=== PATIENT | female | born 2000 | race Caucasian/White ===

== ENCOUNTER 2022-11-12 13:06 | Outpatient (OUT) | payer OTHER, MEDICAID, SELFPAY ==
[2022-11-12 13:40] LABS: Basophils Percent Auto 0.5 % (0.2-2.0); Eosinophils Absolute Auto 0.1 10^3/uL (0.0-0.7); Hematocrit 36.7 % (36.0-48.0); Immature Granulocytes Abs Auto 0.04 10^3/uL (0.00-0.03); Immature Granulocytes Pct Auto 0.5 % (0.0-0.5); Lymphocytes Absolute Auto 2.4 10^3/uL (1.2-3.8); Lymphocytes Percent Auto 29.1 % (20.5-60.0); Mean Corpuscular HGB Conc 32.7 g/dL (29.9-35.2); Mean Corpuscular Hemoglobin 25.6 pg (26.7-34.0); Mean Corpuscular Volume 78.4 fL (81.0-99.0); Mean Platelet Volume 9.7 fL (9.5-13.5); Monocytes Absolute Auto 0.7 10^3/uL (0.3-0.8); Monocytes Percent Auto 8.1 % (1.7-12.0); Neutrophils Percent Auto 60.8 % (43.0-75.0); Platelet Count 305 10^3/uL (150-450); Red Blood Count 4.68 10^6/uL (4.20-5.40); Red Cell Distribution Width 14.2 % (11.0-15.0); White Blood Count 8.2 10^3/uL (4.0-11.0)
[2022-11-12 14:06] LABS: Estimated Average Glucose 94 mg/dL; Glycohemoglobin A1C 4.9 % (4.5-6.2)
[2022-11-12 14:16] LABS: Thyroid Stimulating Hormone 2.963 uIU/mL (0.358-3.740)
[2022-11-13 06:12] LABS: Rubella Antibodies, IgG 8.39 index (Immune >0.99)
[2022-11-13 07:13] LABS: HIV Ab/p24 Ag Screen Non Reactive (Non Reactive); Hep B Surface Ab Non Reactive (.)
[2022-11-13 11:08] LABS: Rapid Plasma Reagin, Quant Non Reactive (NonRea<1:1)
== END 2022-11-12 13:07 ==
PROVIDERS: PCP Obstetrics & Gynecology; Visit Provider Obstetrics & Gynecology
DX: Z34.90 Encounter for supervision of normal pregnancy, unspecified, unspecified trimester (principal)
CPT/HCPCS: 36415; 83036; 84443; 85025; 86592; 86706; 86762; 86850; 86900; 86901; 87340; 87389; 87522

== ENCOUNTER 2022-12-29 19:43 | Outpatient (OUT) | payer OTHER, MEDICAID, SELFPAY ==
[2023-01-04 10:20] LABS: Age Gdln ACOG Testing Note (.); IGP, rfx Aptima HPV ASCU Note (.)
== END 2022-12-29 19:44 | disposition home or self-care (01) ==
PROVIDERS: PCP Obstetrics & Gynecology; Visit Provider Obstetrics & Gynecology
DX: Z12.4 Encounter for screening for malignant neoplasm of cervix (principal); Z11.51 Encounter for screening for human papillomavirus (HPV); Z34.92 Encounter for supervision of normal pregnancy, unspecified, second trimester
CPT/HCPCS: G0145

== ENCOUNTER 2023-01-04 15:52 | Outpatient (OUT) | payer OTHER, MEDICAID, SELFPAY ==
[2023-01-07 01:10] LABS: AFP Value 16.2 ng/mL (.); Gest. Age on Collection Date 15.9 weeks (.); Gestat. Age Based On Ultrasound (.); Insulin Dep Diabetes No (.); Maternal Age At EDD 21.9 yr (.); OSBR Risk 1 IN 10000 (.); Results Report (.)
== END 2023-01-04 15:53 | disposition home or self-care (01) ==
LOC: LAB 15:53
PROVIDERS: PCP Obstetrics & Gynecology; Visit Provider Obstetrics & Gynecology
DX: Z34.92 Encounter for supervision of normal pregnancy, unspecified, second trimester (principal)
CPT/HCPCS: 36415; 82105

== ENCOUNTER 2023-01-31 09:22 | Outpatient (OUT) | payer OTHER, MEDICAID, SELFPAY ==
--- NOTE | 2023-01-31 09:24 | US_ITS ---
[address] [address] Patient Name: CARMENZA PERALES MRN: [id number] date: 2000 Sex: F Assigned Patient Location: US Current Patient Location: Accession/Order Number: [id number] Exam Date: 01/31/2023 09:24 Report Date: 01/31/2023 15:46 At the request of: ZAINAB FREITAS Procedure: US OB anatomy EXAMINATION: US OB anatomy HISTORY: ANATOMY COMPARISON: No relevant comparison available. TECHNIQUE: Transabdominal sonographic examination was performed for obstetrical and evaluation. FINDINGS: Number: 1 Heart Rate: 153.0 bpm H.B. /min Amniotic Fluid Volume: Subjectively normal Placental Location: ANTERIOR with lower margin 5.3 cm from os. Cervix Length: 4.4 cm, closed. ANATOMY: Normal Structures -cerebellum, choroid plexus, cisterna magna, lateral cerebral ventricles, orbits, midline falx, hard palate, four-chamber heart, RVOT, LVOT, stomach, kidneys, bladder, umbilical cord insertion into abdomen, three-vessel cord, cervical spine, thoracic spine, lumbar spine, sacral spine, right upper extremity, left upper extremity, right lower extremity, left lower extremity. SUBOPTIMALLY SEEN: None ABNORMALITIES: None BIOMETRY: BPD: 5.0 cm 21 weeks 1 days ; 94% HC: 18.3 cm 20 weeks 5 days; 84% AC: 15.0 cm 20 weeks 2 days; 63% FL: 3.6 cm 21 weeks 3 days; 91% EFW:376.3 grams; 94% FL/AC: 23.9 FL/BPD: 71.9 HC/AC: 1.2 GESTATIONAL AGE: Age by EDC: 19 weeks 5 days DC by EDC: 06/22/2023 Age by current US: 20 weeks 6 days DC by current US: 06/14/2023 US/US OB anatomy IMPRESSION: 1. Single live intrauterine with growth detailed above. Electronically authenticated by: MACHO ADORNO Date: 01/31/2023 15:46
== END 2023-01-31 09:23 | disposition home or self-care (01) ==
LOC: US 09:23
PROVIDERS: PCP Obstetrics & Gynecology; Visit Provider Obstetrics & Gynecology
DX: Z34.92 Encounter for supervision of normal pregnancy, unspecified, second trimester (principal)
CPT/HCPCS: 76805

== ENCOUNTER 2023-03-03 09:38 | Outpatient (OUT) | payer OTHER, MEDICAID, SELFPAY ==
[2023-03-03 11:07] LABS: Basophils Percent Auto 0.4 % (0.2-2.0); Eosinophils Absolute Auto 0.1 10^3/uL (0.0-0.7); Eosinophils Percent Auto 0.6 % (0.9-7.0); Hematocrit 33.8 % (36.0-48.0); Immature Granulocytes Abs Auto 0.15 10^3/uL (0.00-0.03); Immature Granulocytes Pct Auto 1.6 % (0.0-0.5); Lymphocytes Absolute Auto 2.2 10^3/uL (1.2-3.8); Lymphocytes Percent Auto 22.9 % (20.5-60.0); Mean Corpuscular HGB Conc 32.5 g/dL (29.9-35.2); Mean Corpuscular Hemoglobin 27.3 pg (26.7-34.0); Mean Corpuscular Volume 83.9 fL (81.0-99.0); Mean Platelet Volume 9.7 fL (9.5-13.5); Monocytes Absolute Auto 0.5 10^3/uL (0.3-0.8); Neutrophils Absolute Auto 6.7 10^3/uL (1.4-6.5); Neutrophils Percent Auto 69.5 % (43.0-75.0); Platelet Count 236 10^3/uL (150-450); Red Blood Count 4.03 10^6/uL (4.20-5.40); Red Cell Distribution Width 14.6 % (11.0-15.0); White Blood Count 9.6 10^3/uL (4.0-11.0)
[2023-03-03 11:40] LABS: Glucose 1 Hour 121 mg/dL
== END 2023-03-03 09:39 | disposition home or self-care (01) ==
LOC: LAB 09:39
PROVIDERS: PCP Obstetrics & Gynecology; Visit Provider Physician Assistant
DX: Z34.92 Encounter for supervision of normal pregnancy, unspecified, second trimester (principal)
CPT/HCPCS: 36415; 82950; 85025

== ENCOUNTER 2023-04-06 07:31 | Outpatient (RCR) | payer OTHER, MEDICAID, SELFPAY | END 2023-04-12 23:59 | disposition home or self-care (01) | LOC: INF 07:31 | PROVIDERS: Visit Provider Obstetrics & Gynecology | DX: O26.893 Other specified pregnancy related conditions, third trimester (principal); Z67.91 Unspecified blood type, Rh negative; Z3A.00 Weeks of gestation of pregnancy not specified | CPT/HCPCS: 36415; 86850; 86900; 86901 ==

== ENCOUNTER 2023-04-15 07:43 | Outpatient (RCR) | payer OTHER, MEDICAID, SELFPAY ==
[2023-04-15] MEDS: RHO(D) IMMUNE GLOBULIN 1,500 UNIT SYRINGE 1500 UNIT IM (15:20)
[2023-04-15 15:33] VITALS: BP 141/82; PULSE 110; RESP 18; TEMP 36.3; O2SAT 98
== END 2023-05-12 23:59 | disposition home or self-care (01) ==
LOC: INF 07:43
PROVIDERS: Visit Provider Obstetrics & Gynecology
DX: O26.893 Other specified pregnancy related conditions, third trimester (principal); Z67.91 Unspecified blood type, Rh negative
CPT/HCPCS: 96372; J2790

== ENCOUNTER 2023-04-19 09:52 | Outpatient (OUT) | payer OTHER, MEDICAID, SELFPAY ==
--- NOTE | 2023-04-19 09:55 | US_ITS ---
[address] [address] Patient Name: CARMENZA PERALES MRN: [id number] date: 2000 Sex: F Assigned Patient Location: US Current Patient Location: Accession/Order Number: [id number] Exam Date: 04/19/2023 09:56 Report Date: 04/19/2023 16:50 At the request of: ZAINAB FREITAS Procedure: US OB growth EXAMINATION: US OB growth HISTORY: SIZE INCONSISTENT WITH DATES COMPARISON: 01/31/2023 FINDINGS: Heart Rate: 156.0 bpm Amniotic Fluid Volume: 21.0 cm Number: 1.0 Position: Cephalic presentation, longitudinal lie Maximum Vertical Pocket: 7.9 cm cm 6.2 cm cm 4.9 cm cm 2.1 cm cm BIOMETRY: BPD: 8.6 cm cm; 34 weeks 5 days; greater than 97% HC: 31.1 cmcm; 34 weeks 5 days , greater than 97% AC: 29.4 cm cm; 33 weeks 3 days, 97% FL: 6.0 cm cm; 31 weeks 3 days; 50.2 % % EFW: 2107.9 grams, 4 lbs. 10 oz., 96% FL/AC: 20.5 FL/BPD: 70.1 HC/AC: 1.1 GESTATIONAL AGE: Age by EDC: 30 weeks 6 days DC by EDC: 06/22/2023 Age by US: 33 weeks 4 days DC by US: 06/03/2023 US/US OB growth IMPRESSION: Large for gestational age, estimated weight at the 96th percentile Electronically authenticated by: JEN GEORGE Date: 04/19/2023 16:50
== END 2023-04-19 09:53 | disposition home or self-care (01) ==
LOC: US 09:53
PROVIDERS: Visit Provider Obstetrics & Gynecology
DX: O36.63X0 Maternal care for excessive fetal growth, third trimester, not applicable or unspecified (principal); Z3A.30 30 weeks gestation of pregnancy
CPT/HCPCS: 76816

== ENCOUNTER 2023-04-25 07:26 | Outpatient (OUT) | payer OTHER, MEDICAID, SELFPAY ==
--- NOTE | 2023-04-25 | US_ITS ---
[address] [address] Patient Name: CARMENZA PERALES MRN: [facility]:[id number] date: 2000 Sex: F Assigned Patient Location: [facility] Current Patient Location: [facility] Accession/Order Number: [id number] Exam Date: 04/25/2023 15:00 Report Date: 04/25/2023 16:03 At the request of: ZAINAB FREITAS Procedure: US OB BPP w non-stress EXAMINATION: US OB BPP w non-stress HISTORY: EXCESSIVE GROWTH COMPARISON: Ultrasound OB growth 04/19/2023 TECHNIQUE: Ultrasound biophysical profile was performed in the radiology department. BREATHING MOVEMENTS: 2.0 GROSS BODY MOVEMENTS: 2.0 TONE: 2.0 QUALITATIVE AMNIOTIC FLUID VOLUME: 2.0 PRESENTATION: CEPHALIC HEART RATE: 145.2 bpm bpm. AMNIOTIC FLUID VOLUME: 17.6 cm GESTATIONAL AGE: 31 weeks 5 days CONCLUSION: Total biophysical profile score 8.0. Electronically authenticated by: MACHO ADORNO Date: 04/25/2023 16:03
[2023-04-25 15:27] VITALS: BP 176/88; PULSE 108
[2023-04-25 15:39] VITALS: BP 184/88; PULSE 111
[2023-04-25 15:49] VITALS: BP 144/84; RESP 18
[2023-04-25 16:08] VITALS: BP 148/82; RESP 16
[2023-04-25 16:31] LABS: Basophils Percent Auto 0.4 % (0.2-2.0); Eosinophils Absolute Auto 0.1 10^3/uL (0.0-0.7); Eosinophils Percent Auto 0.9 % (0.9-7.0); Hematocrit 33.9 % (36.0-48.0); Immature Granulocytes Abs Auto 0.13 10^3/uL (0.00-0.03); Immature Granulocytes Pct Auto 1.2 % (0.0-0.5); Lymphocytes Absolute Auto 2.4 10^3/uL (1.2-3.8); Mean Corpuscular HGB Conc 32.4 g/dL (29.9-35.2); Mean Corpuscular Hemoglobin 27.3 pg (26.7-34.0); Mean Corpuscular Volume 84.1 fL (81.0-99.0); Mean Platelet Volume 10.4 fL (9.5-13.5); Monocytes Percent Auto 9.2 % (1.7-12.0); Neutrophils Absolute Auto 6.9 10^3/uL (1.4-6.5); Neutrophils Percent Auto 65.3 % (43.0-75.0); Platelet Count 218 10^3/uL (150-450); Red Blood Count 4.03 10^6/uL (4.20-5.40); Red Cell Distribution Width 14.5 % (11.0-15.0); White Blood Count 10.6 10^3/uL (4.0-11.0)
--- NOTE | 2023-04-25 16:41 | PC.NURSE ---
[id number] lab in and draws bloodwork
[2023-04-25 16:42] LABS: Alanine Aminotransferase 13 U/L (14-59); Aspartate Amino Transferase 13 U/L (15-37); Estimated GFR (African America >60 (>=60); Estimated GFR (Non-African Ame >60 (>=60)
[2023-04-25 16:46] LABS: INR 0.97; Partial Thromboplastin Time 27.5 sec (22.3-36.2); Prothrombin Time 10.3 sec (9.0-11.6)
[2023-04-25 17:10] VITALS: BP 132/74
--- NOTE | 2023-04-25 17:11 | PC.NURSE ---
labs reviewed and bp taken, pt relaxing, call into office and awaiting return call for orders
[2023-04-25 18:40] VITALS: BP 132/74
[2023-04-27 16:01] LABS: Fibrinogen 395 mg/dL
--- OUTSIDE RECORDS SUMMARY | 2023-05-31 17:33 | XMS_ITS | CCD ---
Author Name Unknown Address [address] [place] [address] Organization [facility] Care Team Providers Care Supervisor Solder Making Name Role Phone [facility] Unavailable ZENA ., DR LAMB Consulting Unavailable ZENA ., DR LAMB Attending Unavailable ZENA ., DR LAMB Admitting Unavailable [facility] Unavailable ZENA ., DR LAMB Admitting Unavailable ZENA ., DR LAMB Consulting Unavailable ZENA ., DR LAMB Attending Unavailable IZAIAH RAYGOZA Consulting Unavailable AGNES ARANDA Consulting Unavailable ZENA ., DR LAMB Admitting Unavailable [facility] Unavailable ZENA ., DR LAMB Consulting Unavailable ZENA ., DR LAMB Attending Unavailable CONCHA HERNANDEZ Consulting Unavailable CHRISTEL GONZALEZ Consulting Unavailable Roderick Lopesy Attending Provider [phone] [facility] Unavailable Zainab Lopes Attending Unavailable Zainab Lopes Admitting Unavailable WOOD SANTANA Attending Unavailable ZAINAB LOPES Attending Unavailable WOOD SANTANA Attending Unavailable Problems Problem Classification Problem Date Documented Da te Episodic/Chronic Abdominal pain (5 sources) Pelvic and perineal pain; Translations: [PELVIC AND PERINEAL PAIN] Onset: 07-23-2022 Episodic Menstrual disorders (1 source) Dysmenorrhea, unspecified; Translations: [DYSMENORRHEA UNSPECIFIED] Onset: 08-12-2022 Chronic Other complications of (1 source) Maternal care for excessive growth, unspecified trimester, not applicable or unspecified; Translations: [Maternal care for excessive growth, unspecified trimester, not applicable or unspecified] Onset: 04-25-2023 Episodic Other endocrine disorders (1 source) Polycystic ovarian syndrome; Translations: [POLYCYSTIC OVARIAN SYNDROME] Onset: 07-23-2022 Chronic Ovarian cyst (1 source) Unspecified ovarian cyst, right side; Translations: [UNSPECIFIED OVARIAN CYST RIGHT SIDE] Onset: 08-12-2022 Episodic Substance-related disorders (1 source) Nicotine dependence, other tobacco product, uncomplicated; Translations: [NICOTINE DEPEND OTH TOB PROD UNCOMP] Onset: 07-23-2022 Chronic Results Test Name Value Interpretation Reference Range Facil ity Fibrinogenon 04-25-2023 Fibrinogen 395 mg/dL High 200-393 [facility] Comment on above: Result Comment: A he matocrit value greater than 55% may lead to inaccurate results in coagulation testing. Patients having hematocrit values >55% require a special collection tube for coagulation studies. Please contact the laboratory at [phone] for redraw instructions. PERFORMED BY: [place] [address] PATHOLOGIST LIGHT TECHNICIAN PHAM SUAREZ M.D. Performed By: #### F IB-C #### [address] Fibrinogen [Mass/volume] in Platelet poor plasma by Coagulation assayOrdered By: Zainab Lopes on 04-25-2023 Fibrinogen Coag (PPP) [Mass/Vol] 395 mg/dL 200 -393 [facility] Comment on above: A hematocrit value g reater than 55% may lead to inaccurate results in coagulation testing. Patients having hematocrit values >55% require a special collection tube for coagulation studies. Please contact the laboratory at [phone] for redraw instructions. PREG QUANT HCGon 10-20-2022 HCG QUANT 8286 mIU/mL Normal [facility] Comment on above: Performed By: #### P REGQNT #### [facility] [address] [address] [address] Nicole Roberts HCG RANGE SEE BELOW Normal [facility] Comment on above: Result Comment: 5-50 0.2-1 WEEK 50-500 1-2 WEEKS 100-5,000 2-3 WEEKS 500-10,000 3-4 WEEKS 1,000-50,000 4-5 WEEKS 10,000-100,000 5-6 WEEKS 15,000-200,000 6-8 WEEKS 10,000- 100,000 2-3 MONTHS Performed By: #### P REGQNT #### [facility] [address] [place] [address] Dr. Nicole Roberts PREG QUANT HCGon 10-18-2022 HCG QUANT 4656 mIU/mL Normal [facility] Comment on above: Performed By: #### P REGQNT #### [facility] [address] [place] [address] Dr. Nicole Roberts HCG RANGE SEE BELOW Normal [facility] Comment on above: Result Comment: 5-50 0.2-1 WEEK 50-500 1-2 WEEKS 100-5,000 2-3 WEEKS 500-10,000 3-4 WEEKS 1,000-50,000 4-5 WEEKS 10,000-100,000 5-6 WEEKS 15,000-200,000 6-8 WEEKS 10,000- 100,000 2-3 MONTHS Performed By: #### P REGQNT #### [facility] [address] [place] [address] Dr. Nicole Roberts CBC AUTO DIFFon 07-23-2022 BASO # 0.1 103/ul Normal 0.0-0.1 [facility] Comment on above: Performed By: #### C BC #### [facility] [address] [place] [address] Dr. Nicole Roberts Basophils/100 WBC (Bld) 0.7 % Normal 0.2-2.0 [facility] Comment on above: Performed By: #### C BC #### [facility] [address] [place] [address] Dr. Nicole Roberts EO # 0.1 103/ul Normal 0.0-0.7 [facility] Comment on above: Performed By: #### C BC #### [facility] [address] [place] [address] Dr. Nicole Roberts Eosinophils/100 WBC (Bld) 1.1 % Normal 0.9-7.0 [facility] Comment on above: Performed By: #### C BC #### [facility] [address] [place] [address] Dr. Nicole Roberts Erythrocyte distribution wid th (RBC) [Ratio] 14.6 % Normal 11.0-15.0 [facility] Comment on above: Performed By: #### C BC #### [facility] [address] [place] [address] Dr. Nicole Roberts Hematocrit (Bld) [Volume fraction] 37.7 % Normal 3 6.0-48.0 [facility] Comment on above: Performed By: #### C BC #### [facility] [address] [place] [address] Dr. Nicole Roberts Hemoglobin (Bld) [Mass/Vol] 12.2 g/dL Normal 12.0-16. 0 [facility] Comment on above: Performed By: #### C BC #### [facility] [address] [place] [address] Dr. Nicole Roberts IG # 0.02 10e3/ul Normal 0.00-0.03 [facility] Comment on above: Performed By: #### C BC #### [facility] [address] [place] [address] Dr. Nicole Roberts IG % 0.3 % Normal 0.0-0.5 [facility] Comment on above: Performed By: #### C BC #### [facility] [address] [place] [address] Dr. Nicole Roberts LYMPH # 2.2 103/ul Normal 1.2-3.8 [facility] Comment on above: Performed By: #### C BC #### [facility] [address] [place] [address] Dr. Nicole Roberts Lymphocytes/100 WBC (Bld) 30.8 % Normal 20.5-60.0 [facility] Comment on above: Performed By: #### C BC #### [facility] [address] [place] [address] Dr. Nicole Roberts MANUAL DIFF REQ NO Normal [facility] Comment on above: Performed By: #### C BC #### [facility] [address] [place] [address] Dr. Nicole Roberts MCH (RBC) [Entitic mass] 25.4 pg Critically low 26.7-34 .0 [facility] Comment on above: Performed By: #### C BC #### [facility] [address] [place] [address] Dr. Nicole Roberts MCHC (RBC) [Mass/Vol] 32.4 g/dL Normal 29.9-35.2 [facility] Comment on above: Performed By: #### C BC #### [facility] [address] [address] [address] Nicole Roberts MCV (RBC) [Entitic vol] 78.4 fL Critically low 81.0-99. 0 [facility] Comment on above: Performed By: #### C BC #### [facility] [address] [place] [address] Dr. Nicole Roberts MONO # 0.6 103/ul Normal 0.3-0.8 [facility] Comment on above: Performed By: #### C BC #### [facility] [address] [place] [address] Dr. Nicole Roberts Monocytes/100 WBC (Bld) 8.2 % Normal 1.7-12.0 [facility] Comment on above: Performed By: #### C BC #### [facility] [address] [place] [address] Dr. Nicole Roberts NEUT # 4.2 103/ul Normal 1.4-6.5 [facility] Comment on above: Performed By: #### C BC #### [facility] [address] [place] [address] Dr. Nicole Roberts Neutrophils/100 WBC (Bld) 58.9 % Normal 43.0-75.0 [facility] Comment on above: Performed By: #### C BC #### [facility] [address] [place] [address] Dr. Nicole Roberts Platelet mean volume (Bld) [Entitic vol] 9.5 fL Normal 9.5-13.5 [facility] Comment on above: Performed By: #### C BC #### [facility] [address] [place] [address] Dr. Nicole Roberts PLT 294 103/ul Normal 150-450 [facility] Comment on above: Performed By: #### C BC #### [facility] [address] [place] [address] Dr. Nicole Roberts RBC 4.81 106/ul Normal 4.20-5.40 [facility] Comment on above: Performed By: #### C BC #### [facility] [address] [address] [address] Nicole Roberts WBC 7.1 103/ul Normal 4.0-11.0 [facility] Comment on above: Performed By: #### C BC #### [facility] [address] [place] [address] Dr. Nicole Roberts PREG QUANT HCGon 07-23-2022 HCG QUANT <1 Normal [facility] Comment on above: Performed By: #### P REGQNT #### [facility] [address] [place] [address] Dr. Nicole Roberts HCG RANGE SEE BELOW Normal [facility] Comment on above: Result Comment: 5-50 0.2-1 WEEK 50-500 1-2 WEEKS 100-5,000 2-3 WEEKS 500-10,000 3-4 WEEKS 1,000-50,000 4-5 WEEKS 10,000-100,000 5-6 WEEKS 15,000-200,000 6-8 WEEKS 10,000- 100,000 2-3 MONTHS Performed By: #### P REGQNT #### [facility] [address] [place] [address] Dr. Nicole Roberts Encounters Encounter Date Encounter Type Care Provider Facility Start: 05-26-2023 End: 05-26-2023 ambulatory WOOD SANTANA Not Available Start: 05-19-2023 End: 05-19-2023 ambulatory ZAINAB LOPES Not Available Start: 05-03-2023 End: 05-03-2023 ambulatory WOOD SANTANA Not Available Start: 04-25-2023 End: 04-25-2023 ambulatory Shira Ray Facility:[facility] Start: 04-25-2023 End: 04-25-2023 ambulatory Zainab Lopes Work Phone: [facility] Work Phone: Start: 04-25-2023 End: 04-25-2023 Departed Referred Zainab Lopes Work Phone: [facility] [place] Work Phone: Start: 10-18-2022 ambulatory SHIRA DOTYLINS Facility: [facility] Start: 07-23-2022 Encounter for preprocedural cardiovascular examination DR ZAINAB LOPES . [facility] Start: 07-23-2022 End: 07-23-[address] ZAINAB LOPES . Facility:[facility] Start: 07-21-2022 End: 07-22-2022 ambulatory SHIRA RAY Facility:[facility] Start: 07-21-2022 End: 07-22-2022 Encounter for preprocedural cardiovascular examination SHIRATHO RAMOSS Facility:[facility] Payers Date Payer Category Payer Self-pay 2023 Unknown [id number] 2022 Medicaid [id number] 2001 Unknown [id number] 2.16.84 [id number] 2001 Unknown [id number] 2.16.84 [id number] 2001 Unknown [id number] 2.16.84 [id number] 2001 Unknown [id number] 2001 Unknown [id number] 2001 Unknown [id number] [id number] 1959 Unknown [id number] Unknown [id number] 2.16.8 [id number] Social History Date Type Detail Facility Tobacco smoking stat [facility] Unknown if ever smoked [facility] Work Phone: Start: 2000 Sex Assigned At Female F [facility] Clinical Note 07-23-2022 Note Date & Type Note Facility 07-23-2022 Note OPERATIVE NOTE OPERATION DATE: 07/23/2022 PROCEDURE: Diagnostic laparoscopy with right ovarian cystotomy using monopolar scissors with chromopertubation. PREOPERATIVE DIAGNOSIS: Pelvic pain, right ovarian cyst, dysmenorrhea. POSTOPERATIVE DIAGNOSIS: Pelvic pain, right ovarian cyst, dysmenorrhea, including posterior endometriosis posterior cul-de-sac. ANESTHESIA: General. SURGEON: Zainab Lopes D.O. ALODIZE MACHINE HELPER: MIKEY Garcia URINE OUTPUT: Yellow and clear. BLOOD LOSS: 5 mL. SPECIMENS: None. FINDINGS: Posterior cul-de-sac endometriosis. Right ovarian cyst. Spillage of dye from both tubes during chromopertubation. PROCEDURE: The patient was taken back to the Operating Room where she was placed in dorsal lithotomy position after given general anesthesia. The patient was prepped and draped in normal sterile fashion. A sponge stick was placed into the patient's vagina. Attention was turned to the patient's abdomen, where a small umbilical incision was made. The fascia was tented using Bahman clamps and the fascia was entered sharply. Confirmation of intra-abdominal placement of the 10 mm port was confirmed under direct visualization using a laparoscope. The patient's abdomen was then insufflated using CO2 gas with approximately 4 liters. A second port was placed left laterally; this was done under direct visualization with a 5 mm port. Survey of the patient's abdomen demonstrated normal liver and gallbladder. Survey of the patient's pelvic anatomy demonstrated normal appearing ovaries and tubes as well as normal appearing uterus. No endometrial implants could be noted, no evidence of any pelvic disease was seen, normal appearing pelvic cavity. All instruments were removed from the patient's abdomen. The patient's abdomen was desufflated of CO2 gas. The patient tolerated the procedure well. Sponge stick was removed from the patient's vagina. The patient's infraumbilical fascia was closed using #0 Vicryl on a GI needle. The patient's skin was closed laterally and infraumbilically using 4-0 Vicryl. The patient tolerated the procedure well. Sponge, lap and needle counts were correct x 2. The patient was taken to Recovery Room in stable condition. [facility] Clinical Note 07-21-2022 Note Date & Type Note Facility 07-21-2022 Note EXAM: XR CHEST 2 V HISTORY: Electronic cigarette user . Preop Evaluation. COMPARISON: None. TECHNIQUE: Upright PA and lateral chest x-ray FINDINGS: The heart is not enlarged and the vasculature is not distended. No acute infiltrate, effusion or pneumothorax is identified. The osseous structures are intact. IMPRESSION: No acute infiltrate or evidence of cardiac decompensation. Direct comparison with a previous study would be helpful in confirming the chronicity of these findings. Electronically authenticated by: AGNES ARANDA Date: 2022-07-21 14:22 [facility] Evaluation note Note Date & Type Note Facility Evaluation note No assessment information availa [facility] Work Phone: Summary Purpose Family History No Family History Records FoundNo Family History Records FoundNo Family History Records Found Advance Directives No Advanced Directives Records FoundNo Advanced Directives Records FoundNo Advanced Directives Records Found Additional Source Comments INFORMATION SOURCE (unrecogn ized section and content) DATE CREATED AUTHOR 10/21/2022 [facility] DATE CREATED AUTHOR AUTHOR'S ORGANIZ ATION 05/14/2023 [facility] DATE CREATED AUTHOR AUTHOR'S ORGANIZ ATION 05/28/2023 [facility] [employer]IC Care Teams (unrecognized sec tion and content) Team Status: Inactive Member Role Status Dates Zainab Lopes Attending Provider Active Goals (unrecognized section and content) Goals may be documented in a n alternate section FOR RECORDS PERTAINING TO PATIENTS WHO ARE OR HAVE BEEN ENROLLED IN A CHEMICAL DEPENDENCY/SUBSTANCEABUSE PROGRAM, SOME INFORMATION MAY BE OMITTED. This clinical summary was aggregated from multiple sources. Caution should be exercised in using it in the provision of clinical care. This summary normalizes information from multiple sources, and as a consequence, information in this document may materially change the coding, format and clinical context of patient data. In addition, data may be omitted in some cases. CLINICAL DECISIONS SHOULD BE BASED ON THE PRIMARY CLINICAL RECORDS. [facility] [employer] [facility] provides no warranty or guarantee of the accuracy or completeness of information in this document.
== END 2023-04-25 18:42 | disposition home or self-care (01) ==
LOC: US 07:27 → FBC 15:02
PROVIDERS: Visit Provider Obstetrics & Gynecology
DX: O36.63X0 Maternal care for excessive fetal growth, third trimester, not applicable or unspecified (principal); Z3A.31 31 weeks gestation of pregnancy
CPT/HCPCS: 36415; 76818; 82565; 84450; 84460; 84520; 84550; 85025; 85384; 85610; 85730

== ENCOUNTER 2023-04-26 15:08 | Outpatient (OUT) | payer OTHER, MEDICAID, SELFPAY ==
--- NOTE | 2023-04-26 15:14 | PC.NURSE ---
Pt. arrives ambulatory to unit, denies and symptoms or complaints. Pt's blood pressure 122/81, pulse- 98. Patient will return for scheduled NST on 04/28/2023
== END 2023-04-26 15:10 | disposition home or self-care (01) ==
LOC: FBCO 15:10
PROVIDERS: Visit Provider Obstetrics & Gynecology
DX: Z76.89 Persons encountering health services in other specified circumstances (principal)

== ENCOUNTER 2023-04-27 15:55 | Outpatient (OUT) | payer OTHER, MEDICAID, SELFPAY ==
[2023-04-27 16:24] LABS: Total Protein Urine Random 13.8 mg/dL (<=11.9)
[2023-04-27 16:25] LABS: Total Protein 24 Hour Urine 241.5 mg/24hr (<=149.1); Total Volume 24 Hour Urine 1750 mL/24hr
== END 2023-04-27 15:56 | disposition home or self-care (01) ==
PROVIDERS: Visit Provider Obstetrics & Gynecology
DX: O16.9 Unspecified maternal hypertension, unspecified trimester (principal)
CPT/HCPCS: 84156

== ENCOUNTER 2023-04-28 07:23 | Outpatient (OUT) | payer OTHER, MEDICAID, SELFPAY ==
[2023-04-28 15:02] VITALS: BP 123/58; PULSE 104
== END 2023-04-28 15:22 | disposition home or self-care (01) ==
LOC: FBCO 07:24 → FBC 14:55
PROVIDERS: Visit Provider Obstetrics & Gynecology
DX: O36.60X0 Maternal care for excessive fetal growth, unspecified trimester, not applicable or unspecified (principal); Z3A.00 Weeks of gestation of pregnancy not specified
CPT/HCPCS: 59025

== ENCOUNTER 2023-05-02 07:11 | Outpatient (OUT) | payer OTHER, MEDICAID, SELFPAY ==
--- NOTE | 2023-05-02 | US_ITS ---
[address] [address] Patient Name: CARMENZA PERALES MRN: [facility]:[id number] date: 2000 Sex: F Assigned Patient Location: [facility] Current Patient Location: Accession/Order Number: [id number] Exam Date: 05/02/2023 15:00 Report Date: 05/02/2023 22:40 At the request of: ZAINAB FREITAS Procedure: US OB BPP w non-stress EXAMINATION: US OB BPP w non-stress HISTORY: EXCESSIVE GROWTH O36.63X1 COMPARISON: Ultrasound OB biophysical 04/25/2023 TECHNIQUE: Ultrasound biophysical profile was performed in the radiology department. BREATHING MOVEMENTS: 2.0 GROSS BODY MOVEMENTS: 2.0 TONE: 2.0 QUALITATIVE AMNIOTIC FLUID VOLUME: 2.0 PRESENTATION: CEPHALIC HEART RATE: 125.6 bpm bpm. AMNIOTIC FLUID VOLUME: 17.5 cm GESTATIONAL AGE: 32 weeks 5 days CONCLUSION: Total biophysical profile score 8.0. Electronically authenticated by: MACHO ADORNO Date: 05/02/2023 22:40
[2023-05-02 15:21] VITALS: BP 143/80; PULSE 101
[2023-05-02 15:50] VITALS: BP 144/77; PULSE 94
== END 2023-05-02 15:55 | disposition home or self-care (01) ==
LOC: US 07:12 → FBC 14:59
PROVIDERS: Visit Provider Obstetrics & Gynecology
DX: O36.63X0 Maternal care for excessive fetal growth, third trimester, not applicable or unspecified (principal); Z3A.32 32 weeks gestation of pregnancy
CPT/HCPCS: 76818

== ENCOUNTER 2023-05-06 08:50 | Outpatient (OUT) | payer OTHER, MEDICAID, SELFPAY ==
[2023-05-06 08:55] VITALS: BP 147/67; PULSE 117
== END 2023-05-06 09:29 | disposition home or self-care (01) ==
LOC: FBCO 08:50 → FBC 08:51
PROVIDERS: Visit Provider Obstetrics & Gynecology
DX: O36.63X1 Maternal care for excessive fetal growth, third trimester, fetus 1 (principal)
CPT/HCPCS: 59025

== ENCOUNTER 2023-05-09 07:27 | Outpatient (OUT) | payer OTHER, MEDICAID, SELFPAY ==
--- NOTE | 2023-05-09 | US_ITS ---
[place] [id number] Patient Name: CARMENZA PERALES MRN: [facility]:[id number] date: 2000 Sex: F Assigned Patient Location: US [place] [facility] [place]/Order Number: [id number] Exam Date: 05/09/2023 15:00 Report Date: 05/09/2023 15:44 At the request of: ZAINAB FREITAS Procedure: US OB BPP w non-stress EXAMINATION: US OB BPP w non-stress HISTORY: GROWTH EFFECTING MANAGEMENT OF . COMPARISON: Ultrasound OB biophysical 05/02/2023 TECHNIQUE: Ultrasound biophysical profile was performed in the radiology department. BREATHING MOVEMENTS: 2.0 GROSS BODY MOVEMENTS: 2.0 TONE: 2.0 QUALITATIVE AMNIOTIC FLUID VOLUME: 2.0 PRESENTATION: CEPHALIC HEART RATE: 149.2 bpm bpm. AMNIOTIC FLUID VOLUME: 15.0 cm GESTATIONAL AGE: 33 weeks 5 days CONCLUSION: Total biophysical profile score 8.0. Electronically authenticated by: MACHO ADORNO Date: 05/09/2023 15:44
[2023-05-09 15:20] VITALS: BP 132/67; PULSE 95
== END 2023-05-09 16:20 | disposition home or self-care (01) ==
LOC: US 07:28 → FBC 14:56
PROVIDERS: Visit Provider Obstetrics & Gynecology
DX: O36.63X1 Maternal care for excessive fetal growth, third trimester, fetus 1 (principal); Z3A.33 33 weeks gestation of pregnancy
CPT/HCPCS: 76818

== ENCOUNTER 2023-05-12 08:06 | Outpatient (OUT) | payer OTHER, MEDICAID, SELFPAY ==
[2023-05-12 15:09] VITALS: BP 136/77; PULSE 104
== END 2023-05-12 15:57 | disposition home or self-care (01) ==
LOC: FBCO 08:06 → FBC 15:03
PROVIDERS: Visit Provider Obstetrics & Gynecology
DX: O36.63X1 Maternal care for excessive fetal growth, third trimester, fetus 1 (principal)
CPT/HCPCS: 59025

== ENCOUNTER 2023-05-16 07:25 | Outpatient (OUT) | payer OTHER, MEDICAID, SELFPAY ==
--- NOTE | 2023-05-16 | US_ITS ---
[address] [address] Patient Name: CARMENZA PERALES MRN: [facility]:[id number] date: 2000 Sex: F Assigned Patient Location: [facility] Current Patient Location: Accession/Order Number: [id number] Exam Date: 05/16/2023 14:49 Report Date: 05/16/2023 15:57 At the request of: ZAINAB FREITAS Procedure: US OB BPP w non-stress EXAMINATION: US OB BPP w non-stress HISTORY: EXCESSIVE GROWTH COMPARISON: Ultrasound OB biophysical 05/09/2023 TECHNIQUE: Ultrasound biophysical profile was performed in the radiology department. BREATHING MOVEMENTS: 2.0 GROSS BODY MOVEMENTS: 2.0 TONE: 2.0 QUALITATIVE AMNIOTIC FLUID VOLUME: 2.0 PRESENTATION: CEPHALIC HEART RATE: 141.4 bpm bpm. AMNIOTIC FLUID VOLUME: 14.3 cm GESTATIONAL AGE: 34 weeks 5 days CONCLUSION: Total biophysical profile score 8.0. Electronically authenticated by: MACHO ADORNO Date: 05/16/2023 15:57
[2023-05-16 15:09] VITALS: BP 140/75; PULSE 100
== END 2023-05-16 15:33 | disposition home or self-care (01) ==
LOC: US 07:27 → FBC 14:48
PROVIDERS: Visit Provider Obstetrics & Gynecology
DX: O36.63X1 Maternal care for excessive fetal growth, third trimester, fetus 1 (principal); Z3A.34 34 weeks gestation of pregnancy
CPT/HCPCS: 76818

== ENCOUNTER 2023-05-19 07:09 | Outpatient (OUT) | payer OTHER, MEDICAID, SELFPAY ==
--- NOTE | 2023-05-19 10:19 | US_ITS ---
[address] [address] Patient Name: CARMENZA PERALES MRN: [id number]:[id number] date: 2000 Sex: F Assigned Patient Location: US Current Patient Location: US Accession/Order Number: [id number] Exam Date: 05/19/2023 10:19 Report Date: 05/19/2023 12:37 At the request of: WOOD SANTANA Procedure: US OB growth EXAMINATION: US OB growth HISTORY: LGA COMPARISON: 04/19/2023 TECHNIQUE: Transabdominal sonographic examination was performed for obstetrical and evaluation. FINDINGS: Number: 1 Heart Rate: 152.0 bpm H.B. /min Amniotic Fluid Volume: 12.7 cm, largest fluid pocket 4.6 cm position: Cephalic presentation, longitudinal lie Placental Location: Anterior, grade 3 Cervix Length: Not measured BIOMETRY: BPD: 9.5 cm 38 weeks 4 days, > 97% HC: 33.8 cm 38 weeks 5 days, 93% AC: 34.9 cm 38 weeks 6 days, >97% FL: 6.9 cm 35 weeks 3 days, 62% EFW: 3372.9 grams grams ; 7 lbs. 7 oz., >97% FL/AC: 19.8 FL/BPD: 73.0 HC/AC: 1.0 GESTATIONAL AGE: Age by EDC: 35 weeks 1 days DC by EDC: 06/22/2023 Age by current US: 37 weeks 6 days DC by current US: 06/03/2023 US/US OB growth IMPRESSION: Large for gestational age, multiple measurements above the 97th percentile *Reference: [employer] Practice Guideline for the performance of Obstetric Ultrasound Examinations, March 13, 2007. Electronically authenticated by: JEN GEORGE Date: 05/19/2023 12:37
[2023-05-19 14:55] VITALS: BP 139/84; PULSE 93
[2023-05-19 15:21] LABS: Amnisure NEGATIVE (NEGATIVE)
--- OUTSIDE RECORDS SUMMARY | 2023-06-01 02:28 | XMS_ITS | CCD ---
Author Name Unknown Address [address] [place] [address] Organization [facility] Care Team Providers Care Metal Engraver Name Role Phone [facility] Unavailable ZENA ., DR LAMB Consulting Unavailable ZENA ., DR LAMB Attending Unavailable ZENA ., DR LAMB Admitting Unavailable [facility] Unavailable ZENA ., DR LAMB Admitting Unavailable ZENA ., DR LAMB Consulting Unavailable ZENA ., DR LAMB Attending Unavailable IZAIAH RAYGOZA Consulting Unavailable AGNES ARANDA Consulting Unavailable ZENA ., DR LAMB Admitting Unavailable [facility] Unavailable ZENA ., DR LAMB Consulting Unavailable ZENA ., DR LAMB Attending Unavailable CONCHA HERNANDEZ Consulting Unavailable CHRISTEL GONZALEZ Consulting Unavailable Roderick Lopesy Attending Provider [facility] Unavailable Zainab Lopes Attending Unavailable Zainab Lopes [...] Fibrinogenon 04-25-2023 Fibrinogen 395 mg/dL High 200-393 [facility] Comment on above: Result Comment: A he matocrit value greater than 55% may lead to inaccurate results in coagulation testing. Patients having hematocrit values >55% require a special collection tube for coagulation studies. Please contact the laboratory at [phone] for redraw instructions. PERFORMED BY: [place] [address] PATHOLOGIST VOICE WRITING REPORTER PHAM SUAREZ M.D. Performed By: #### F IB-C #### [address] Fibrinogen [Mass/volume] in Platelet poor plasma by Coagulation assayOrdered By: Zainab Lopes on 04-25-2023 Fibrinogen Coag (PPP) [Mass/Vol] 395 mg/dL 200 -393 [facility] Comment on above: A hematocrit value g reater than 55% may lead to inaccurate results in coagulation testing. Patients having hematocrit values >55% require a special collection tube for coagulation studies. Please contact the laboratory at [phone] for redraw instructions. PREG QUANT HCGon 10-20-2022 HCG QUANT 8286 mIU/mL Normal [facility] Comment on above: Performed By: #### P REGQNT #### [facility] [address] [address] [address] Nicole Roberts HCG RANGE SEE BELOW Normal [facility] Comment on above: Result Comment: 5-50 0.2-1 WEEK 50-500 1-2 WEEKS 100-5,000 2-3 WEEKS 500-10,000 3-4 WEEKS 1,000-50,000 4-5 WEEKS 10,000-100,000 5-6 WEEKS 15,000-200,000 6-8 WEEKS 10,000- 100,000 2-3 MONTHS Performed By: #### P REGQNT #### [facility] [address] [place] [address] Dr. Nicole Roberts PREG QUANT HCGon 10-18-2022 HCG QUANT 4656 mIU/mL Normal [facility] Comment on above: Performed By: #### P REGQNT #### [facility] [address] [place] [address] Dr. Nicole Roberts HCG RANGE SEE BELOW Normal [facility] Comment on above: Result Comment: 5-50 0.2-1 WEEK 50-500 1-2 WEEKS 100-5,000 2-3 WEEKS 500-10,000 3-4 WEEKS 1,000-50,000 4-5 WEEKS 10,000-100,000 5-6 WEEKS 15,000-200,000 6-8 WEEKS 10,000- 100,000 2-3 MONTHS Performed By: #### P REGQNT #### [facility] [address] [place] [address] Dr. Nicole Roberts CBC AUTO DIFFon 07-23-2022 BASO # 0.1 103/ul Normal 0.0-0.1 [facility] Comment on above: Performed By: #### C BC #### [facility] [address] [place] [address] Dr. Nicole Roberts Basophils/100 WBC (Bld) 0.7 % Normal 0.2-2.0 [facility] Comment on above: Performed By: #### C BC #### [facility] [address] [place] [address] Dr. Nicole Roberts EO # 0.1 103/ul Normal 0.0-0.7 [facility] Comment on above: Performed By: #### C BC #### [facility] [address] [place] [address] Dr. Nicole Roberts Eosinophils/100 WBC (Bld) 1.1 % Normal 0.9-7.0 [facility] Comment on above: Performed By: #### C BC #### [facility] [address] [place] [address] Dr. Nicole Roberts Erythrocyte distribution wid th (RBC) [Ratio] 14.6 % Normal 11.0-15.0 [facility] Comment on above: Performed By: #### C BC #### [facility] [address] [place] [address] Dr. Nicole Roberts Hematocrit (Bld) [Volume fraction] 37.7 % Normal 3 6.0-48.0 [facility] Comment on above: Performed By: #### C BC #### [facility] [address] [place] [address] Dr. Nicole Roberts Hemoglobin (Bld) [Mass/Vol] 12.2 g/dL Normal 12.0-16. 0 [facility] Comment on above: Performed By: #### C BC #### [facility] [address] [place] [address] Dr. Nicole Roberts IG # 0.02 10e3/ul Normal 0.00-0.03 [facility] Comment on above: Performed By: #### C BC #### [facility] [address] [place] [address] Dr. Nicole Roberts IG % 0.3 % Normal 0.0-0.[address] [facility] Comment on above: Performed By: #### C BC #### [facility] [address] [place] [address] Dr. Nicole Roberts LYMPH # 2.2 103/ul Normal 1.2-3.[address] [facility] Comment on above: Performed By: #### C BC #### [facility] [address] [place] [address] Dr. Nicole Roberts Lymphocytes/100 WBC (Bld) 30.8 % Normal 20.5-60.0 [facility] Comment on above: Performed By: #### C BC #### [facility] [address] [place] [address] Dr. Nicole Roberts MANUAL DIFF REQ NO Normal [facility] Comment on above: Performed By: #### C BC #### [facility] [address] [place] [address] Dr. Nicole Roberts MCH (RBC) [Entitic mass] 25.4 pg Critically low 26.7-34 .0 [facility] Comment on above: Performed By: #### C BC #### [facility] [address] [place] [address] Dr. Nicole Roberts MCHC (RBC) [Mass/Vol] 32.4 g/dL Normal 29.9-35.2 [facility] Comment on above: Performed By: #### C BC #### [facility] [address] [address] [address] Nicole Roberts MCV (RBC) [Entitic vol] 78.4 fL Critically low 81.0-99. 0 [facility] Comment on above: Performed By: #### C BC #### [facility] [address] [place] [address] Dr. Nicole Roberts MONO # 0.6 103/ul Normal 0.3-0.[address] [facility] Comment on above: Performed By: #### C BC #### [facility] [address] [place] [address] Dr. Nicole Roberts Monocytes/100 WBC (Bld) 8.2 % Normal 1.7-12.0 [facility] Comment on above: Performed By: #### C BC #### [facility] [address] [place] [address] Dr. Nicole Roberts NEUT # 4.2 103/ul Normal 1.4-6.[address] [facility] Comment on above: Performed By: #### C BC #### [facility] [address] [place] [address] Dr. Nicole Roberts Neutrophils/100 WBC (Bld) 58.9 % Normal 43.0-75.0 [facility] Comment on above: Performed By: #### C BC #### [facility] [address] [place] [address] Dr. Nicole Roberts Platelet mean volume (Bld) [Entitic vol] 9.5 fL Normal 9.5-13.5 [facility] Comment on above: Performed By: #### C BC #### [facility] [address] [place] [address] Dr. Nicole Roberts PLT 294 103/ul Normal 150-450 [facility] Comment on above: Performed By: #### C BC #### [facility] [address] [place] [address] Dr. Nicole Roberts RBC 4.81 106/ul Normal 4.20-5.40 [facility] Comment on above: Performed By: #### C BC #### [facility] [address] [address] [address] Nicole Roberts WBC 7.1 103/ul Normal 4.0-11.0 [facility] Comment on above: Performed By: #### C BC #### [facility] [address] [place] [address] Dr. Nicole Roberts PREG QUANT HCGon 07-23-2022 HCG QUANT <1 Normal [facility] Comment on above: Performed By: #### P REGQNT #### [facility] [address] [place] [address] Dr. Nicole Roberts HCG RANGE SEE BELOW Normal [facility] Comment on above: Result Comment: 5-50 0.2-1 WEEK 50-500 1-2 WEEKS 100-5,000 2-3 WEEKS 500-10,000 3-4 WEEKS 1,000-50,000 4-5 WEEKS 10,000-100,000 5-6 WEEKS 15,000-200,000 6-8 WEEKS 10,000- 100,000 2-3 MONTHS Performed By: #### P REGQNT #### [facility] [address] [place] [address] Dr. Nicole Roberts Encounters Encounter Date Encounter Type Care Provider Facility Start: 05-26-2023 End: 05-26-2023 ambulatory WOOD SANTANA Not Available Start: 05-19-2023 End: 05-19-2023 ambulatory ZAINAB LOPES Not Available Start: 05-03-2023 End: 05-03-2023 ambulatory WOOD SANTANA Not Available Start: 04-25-2023 End: 04-25-2023 ambulatory Shira Ray Facility:[facility] Start: 04-25-2023 End: 04-25-2023 ambulatory Zainab Lopes Work Phone: [facility] Work Phone: Start: 04-25-2023 End: 04-25-2023 Departed Referred Zainab Lopes Work Phone: [facility] [place] Work Phone: Start: 10-18-2022 ambulatory SHIRA DOTYLINS Facility: [facility] Start: 07-23-2022 Encounter for preprocedural cardiovascular examination DR ZAINAB LOPES . [facility] Start: 07-23-2022 End: 07-23-[address] ZAINAB LOPES . Facility:[facility] Start: 07-21-2022 End: 07-22-2022 ambulatory SHIRA RAY Facility:[facility] Start: 07-21-2022 End: 07-22-2022 Encounter for preprocedural cardiovascular examination SHIRATHO RAMOSS Facility:[facility] Payers Date Payer Category Payer Self-pay 2023 Unknown [id number] 2022 Medicaid [id number] 2001 Unknown [id number] 2.16.84 [id number] 2001 Unknown [id number] 2.16.84 [id number] 2001 Unknown [id number] 2.16.84 [id number] 2001 Unknown [id number] 2001 Unknown [id number] 2001 Unknown [id number] [id number] 1959 Unknown [id number] Unknown [id number] 2.16.8 [id number] Social History Date Type Detail Facility Tobacco smoking stat [facility] Unknown if ever smoked [facility] Work Phone: Start: 2000 Sex Assigned At Female F [facility] Clinical Note 07-23-2022 Note Date & Type Note Facility 07-23-2022 Note OPERATIVE NOTE OPERATION DATE: 07/23/2022 PROCEDURE: Diagnostic laparoscopy with right ovarian cystotomy using monopolar scissors with chromopertubation. PREOPERATIVE DIAGNOSIS: Pelvic pain, right ovarian cyst, dysmenorrhea. POSTOPERATIVE DIAGNOSIS: Pelvic pain, right ovarian cyst, dysmenorrhea, including posterior endometriosis posterior cul-de-sac. ANESTHESIA: General. SURGEON: Zainab Lopes D.O. ROAD EQUIPMENT OPERATOR: MIKEY Garcia URINE OUTPUT: Yellow and clear. [...] to Recovery Room in stable condition. [facility] Clinical Note 07-21-2022 Note Date & Type [...] by: AGNES ARANDA Date: 2022-07-21 14:22 [facility] Evaluation note Note Date & Type Note Facility Evaluation note No assessment information availa [facility] Work Phone: Summary Purpose Family History No Family History Records FoundNo Family History Records FoundNo Family History Records Found Advance Directives No Advanced Directives Records FoundNo Advanced Directives Records FoundNo Advanced Directives Records Found Additional Source Comments INFORMATION SOURCE (unrecogn ized section and content) DATE CREATED AUTHOR 10/21/2022 [facility] DATE CREATED AUTHOR AUTHOR'S ORGANIZ ATION 05/14/2023 [facility] DATE CREATED AUTHOR AUTHOR'S ORGANIZ ATION 05/28/2023 [facility] dical Specialists EPIC Care Teams (unrecognized sec [...] BE BASED ON THE PRIMARY CLINICAL RECORDS. [facility] [employer] [facility]. provides no warranty or guarantee of the accuracy or completeness of information in this document.
== END 2023-05-19 15:29 | disposition home or self-care (01) ==
LOC: US 07:09 → FBC 14:52
PROVIDERS: Obstetrics & Gynecology; Visit Provider Physician Assistant
DX: O36.63X1 Maternal care for excessive fetal growth, third trimester, fetus 1 (principal); Z3A.35 35 weeks gestation of pregnancy
CPT/HCPCS: 59025; 76816; 84112

== ENCOUNTER 2023-05-23 07:06 | Outpatient (OUT) | payer OTHER, MEDICAID, SELFPAY ==
--- NOTE | 2023-05-23 | US_ITS ---
[address] [address] Patient Name: CARMENZA PERALES MRN: [facility]:[id number] date: 2000 Sex: F Assigned Patient Location: [facility] Current Patient Location: Accession/Order Number: [id number] Exam Date: 05/23/2023 14:57 Report Date: 05/23/2023 15:44 At the request of: ZAINAB FREITAS Procedure: US OB BPP w non-stress EXAMINATION: US OB BPP w non-stress HISTORY: EXCESSIVE GROWTH COMPARISON: No relevant comparison available. TECHNIQUE: Ultrasound biophysical profile was performed in the radiology department. FINDINGS: BREATHING MOVEMENTS: 2.0 GROSS BODY MOVEMENTS: 2.0 TONE: 2.0 QUALITATIVE AMNIOTIC FLUID VOLUME: 2.0 PRESENTATION: CEPHALIC HEART RATE: 164.6 bpm H.B./min AMNIOTIC FLUID VOLUME: 20.3 cm cm GESTATIONAL AGE: 35 weeks 5 days CONCLUSION: Total biophysical profile score: 8.0 Electronically authenticated by: JEN GEORGE Date: 05/23/2023 15:44
[2023-05-23 15:19] VITALS: BP 143/71; PULSE 99
--- OUTSIDE RECORDS SUMMARY | 2023-06-01 05:18 | XMS_ITS | CCD ---
Author Name Unknown Address [address] [place] [address] Organization [facility] Care Team Providers Care Boiler Setter Name Role Phone [facility] Unavailable ZENA ., DR LAMB Consulting Unavailable ZENA ., DR LAMB Attending Unavailable ZENA ., DR LAMB Admitting Unavailable [facility] Unavailable ZENA ., DR LAMB Admitting Unavailable ZENA ., DR LAMB Consulting Unavailable ZENA ., DR LAMB Attending Unavailable IZAIAH RAYGOZA Consulting Unavailable AGNES ARANDA Consulting Unavailable ZENA ., DR LAMB Admitting Unavailable [facility] Unavailable ZENA ., DR LAMB Consulting Unavailable ZENA ., DR LAMB Attending Unavailable CONCHA HERNANDEZ Consulting Unavailable CHRISTEL GONZALEZ Consulting Unavailable Roderick Lopesy Attending Provider [phone] [facility] Unavailable Zainab Lopes Attending Unavailable [...] Fibrinogenon 04-25-2023 Fibrinogen 395 mg/dL High 200-393 [facility] Comment on above: Result Comment: A he matocrit value greater than 55% may lead to inaccurate results in coagulation testing. Patients having hematocrit values >55% require a special collection tube for coagulation studies. Please contact the laboratory at [phone] for redraw instructions. PERFORMED BY: [place] [address] PATHOLOGIST BUTTERMILK DRIER OPERATOR PHAM SUAREZ M.D. Performed By: #### F IB-C #### [address] Fibrinogen [Mass/volume] in Platelet poor plasma by Coagulation assayOrdered By: Zainab Lopes on 04-25-2023 Fibrinogen Coag (PPP) [Mass/Vol] 395 mg/dL 200 -393 [facility] Comment on above: A hematocrit value g reater than 55% may lead to inaccurate results in coagulation testing. Patients having hematocrit values >55% require a special collection tube for coagulation studies. Please contact the laboratory at [phone] for redraw instructions. PREG QUANT HCGon 10-20-2022 HCG QUANT 8286 mIU/mL Normal [facility] Comment on above: Performed By: #### P REGQNT #### [facility] [address] [address] [address] Nicole Roberts HCG RANGE SEE BELOW Normal [facility] Comment on above: Result Comment: 5-50 0.2-1 WEEK 50-500 1-2 WEEKS 100-5,000 2-3 WEEKS 500-10,000 3-4 WEEKS 1,000-50,000 4-5 WEEKS 10,000-100,000 5-6 WEEKS 15,000-200,000 6-8 WEEKS 10,000- 100,000 2-3 MONTHS Performed By: #### P REGQNT #### [facility] [address] [place] [address] Dr. Nicole Roberts PREG QUANT HCGon 10-18-2022 HCG QUANT 4656 mIU/mL Normal [facility] Comment on above: Performed By: #### P REGQNT #### [facility] [address] [place] [address] Dr. Nicole Roberts HCG RANGE SEE BELOW Normal [facility] Comment on above: Result Comment: 5-50 0.2-1 WEEK 50-500 1-2 WEEKS 100-5,000 2-3 WEEKS 500-10,000 3-4 WEEKS 1,000-50,000 4-5 WEEKS 10,000-100,000 5-6 WEEKS 15,000-200,000 6-8 WEEKS 10,000- 100,000 2-3 MONTHS Performed By: #### P REGQNT #### [facility] [address] [place] [address] Dr. Nicole Roberts CBC AUTO DIFFon 07-23-2022 BASO # 0.1 103/ul Normal 0.0-0.1 [facility] Comment on above: Performed By: #### C BC #### [facility] [address] [place] [address] Dr. Nicole Roberts Basophils/100 WBC (Bld) 0.7 % Normal 0.2-2.0 [facility] Comment on above: Performed By: #### C BC #### [facility] [address] [place] [address] Dr. Nicole Roberts EO # 0.1 103/ul Normal 0.0-0.7 [facility] Comment on above: Performed By: #### C BC #### [facility] [address] [place] [address] Dr. Nicole Roberts Eosinophils/100 WBC (Bld) 1.1 % Normal 0.9-7.0 [facility] Comment on above: Performed By: #### C BC #### [facility] [address] [place] [address] Dr. Nicole Roberts Erythrocyte distribution wid th (RBC) [Ratio] 14.6 % Normal 11.0-15.0 [facility] Comment on above: Performed By: #### C BC #### [facility] [address] [place] [address] Dr. Nicole Roberts Hematocrit (Bld) [Volume fraction] 37.7 % Normal 3 6.0-48.0 [facility] Comment on above: Performed By: #### C BC #### [facility] [address] [place] [address] Dr. Nicole Roberts Hemoglobin (Bld) [Mass/Vol] 12.2 g/dL Normal 12.0-16. 0 [facility] Comment on above: Performed By: #### C BC #### [facility] [address] [place] [address] Dr. Nicole Roberts IG # 0.02 10e3/ul Normal 0.00-0.03 [facility] Comment on above: Performed By: #### C BC #### [facility] [address] [place] [address] Dr. Nicole Roberts IG % 0.3 % Normal 0.0-0.5 [facility] Comment on above: Performed By: #### C BC #### [facility] [address] [place] [address] Dr. Nicole Roberts LYMPH # 2.2 103/ul Normal 1.2-3.8 [facility] Comment on above: Performed By: #### C BC #### [facility] [address] [place] [address] Dr. Nicole Roberts Lymphocytes/100 WBC (Bld) 30.8 % Normal 20.5-60.0 [facility] Comment on above: Performed By: #### C BC #### [facility] [address] [place] [address] Dr. Nicole Roberts MANUAL DIFF REQ NO Normal [facility] Comment on above: Performed By: #### C BC #### [facility] [address] [place] [address] Dr. Nicole Roberts MCH (RBC) [Entitic mass] 25.4 pg Critically low 26.7-34 .0 [facility] Comment on above: Performed By: #### C BC #### [facility] [address] [place] [address] Dr. Nicole Roberts MCHC (RBC) [Mass/Vol] 32.4 g/dL Normal 29.9-35.2 [facility] Comment on above: Performed By: #### C BC #### [facility] [address] [address] [address] Nicole Roberts MCV (RBC) [Entitic vol] 78.4 fL Critically low 81.0-99. 0 [facility] Comment on above: Performed By: #### C BC #### [facility] [address] [place] [address] Dr. Nicole Roberts MONO # 0.6 103/ul Normal 0.3-0.8 [facility] Comment on above: Performed By: #### C BC #### [facility] [address] [place] [address] Dr. Nicole Roberts Monocytes/100 WBC (Bld) 8.2 % Normal 1.7-12.0 [facility] Comment on above: Performed By: #### C BC #### [facility] [address] [place] [address] Dr. Nicole Roberts NEUT # 4.2 103/ul Normal 1.4-6.5 [facility] Comment on above: Performed By: #### C BC #### [facility] [address] [place] [address] Dr. Nicole Roberts Neutrophils/100 WBC (Bld) 58.9 % Normal 43.0-75.0 [facility] Comment on above: Performed By: #### C BC #### [facility] [address] [place] [address] Dr. Nicole Roberts Platelet mean volume (Bld) [Entitic vol] 9.5 fL Normal 9.5-13.5 [facility] Comment on above: Performed By: #### C BC #### [facility] [address] [place] [address] Dr. Nicole Roberts PLT 294 103/ul Normal 150-450 [facility] Comment on above: Performed By: #### C BC #### [facility] [address] [place] [address] Dr. Nicole Roberts RBC 4.81 106/ul Normal 4.20-5.40 [facility] Comment on above: Performed By: #### C BC #### [facility] [address] [address] [address] Nicole Roberts WBC 7.1 103/ul Normal 4.0-11.0 [facility] Comment on above: Performed By: #### C BC #### [facility] [address] [place] [address] Dr. Nicole Roberts PREG QUANT HCGon 07-23-2022 HCG QUANT <1 Normal [facility] Comment on above: Performed By: #### P REGQNT #### [facility] [address] [place] [address] Dr. Nicole Roberts HCG RANGE SEE BELOW Normal [facility] Comment on above: Result Comment: 5-50 0.2-1 WEEK 50-500 1-2 WEEKS 100-5,000 2-3 WEEKS 500-10,000 3-4 WEEKS 1,000-50,000 4-5 WEEKS 10,000-100,000 5-6 WEEKS 15,000-200,000 6-8 WEEKS 10,000- 100,000 2-3 MONTHS Performed By: #### P REGQNT #### [facility] [address] [place] [address] Dr. Nicole Roberts Encounters Encounter Date Encounter Type Care Provider Facility Start: 05-26-2023 End: 05-26-2023 ambulatory WOOD SANTANA Not Available Start: 05-19-2023 End: 05-19-2023 ambulatory ZAINAB LOPES Not Available Start: 05-03-2023 End: 05-03-2023 ambulatory WOOD SANTANA Not Available Start: 04-25-2023 End: 04-25-2023 ambulatory Shira Ray Facility:[facility] Start: 04-25-2023 End: 04-25-2023 ambulatory Zainab Lopes Work Phone: [facility] Work Phone: Start: 04-25-2023 End: 04-25-2023 Departed Referred Zainab Lopes Work Phone: [facility] [employer] Work Phone: Start: 10-18-2022 ambulatory SHIRA DOTYLINS Facility: [facility] Start: 07-23-2022 Encounter for preprocedural cardiovascular examination DR ZAINAB LOPES . [facility] Start: 07-23-2022 End: 07-23-[address] ZAINAB LOPES . Facility:[facility] Start: 07-21-2022 End: 07-22-2022 ambulatory SHIRA RAY Facility:[facility] Start: 07-21-2022 End: 07-22-2022 Encounter for preprocedural cardiovascular examination SHIRATHO RAMOSS Facility:[facility] Payers Date Payer Category Payer Self-pay 2023 Unknown [id number] 2022 Medicaid [id number] 2001 Unknown [id number] 2.16.84 [id number] 2001 Unknown [id number] 2.16.84 [id number] 2001 Unknown [id number] 2.16.84 [id number] 2001 Unknown [id number] 2001 Unknown [id number] [id number] 2001 Unknown [id number] [id number] 1959 Unknown [id number] Unknown [id number] 2.16.8 [id number] Social History Date Type Detail Facility Tobacco smoking stat [facility] Unknown if ever smoked [facility] Work Phone: Start: 2000 Sex Assigned At Female [facility] Clinical Note 07-23-2022 Note Date & Type Note Facility 07-23-2022 Note OPERATIVE NOTE OPERATION DATE: 07/23/2022 PROCEDURE: Diagnostic laparoscopy with right ovarian cystotomy using monopolar scissors with chromopertubation. PREOPERATIVE DIAGNOSIS: Pelvic pain, right ovarian cyst, dysmenorrhea. POSTOPERATIVE DIAGNOSIS: Pelvic pain, right ovarian cyst, dysmenorrhea, including posterior endometriosis posterior cul-de-sac. ANESTHESIA: General. SURGEON: Zainab Lopes D.O. CHIEF HUMAN RESOURCES OFFICER: MIKEY Garcia URINE OUTPUT: Yellow and clear. [...] to Recovery Room in stable condition. [facility] Clinical Note 07-21-2022 Note Date & [...] by: AGNES ARANDA Date: 2022-07-21 14:22 [facility] Evaluation note Note Date & Type Note Facility Evaluation note No assessment information availa [facility] Work Phone: Summary Purpose Family History No Family History Records FoundNo Family History Records FoundNo Family History Records Found Advance Directives No Advanced Directives Records FoundNo Advanced Directives Records FoundNo Advanced Directives Records Found Additional Source Comments INFORMATION SOURCE (unrecogn ized section and content) DATE CREATED AUTHOR 10/21/[address] [facility] DATE CREATED AUTHOR AUTHOR'S ORGANIZ ATION 05/14/2023 [facility] DATE CREATED AUTHOR AUTHOR'S ORGANIZ ATION 05/28/2023 [facility] dical Specialists EPIC Care Teams (unrecognized [...] BE BASED ON THE PRIMARY CLINICAL RECORDS. [facility]. provides no warranty or guarantee of the accuracy or completeness of information in this document.
== END 2023-05-23 15:43 | disposition home or self-care (01) ==
LOC: US 07:06 → FBC 14:54
PROVIDERS: Visit Provider Obstetrics & Gynecology
DX: O36.63X1 Maternal care for excessive fetal growth, third trimester, fetus 1 (principal); Z3A.35 35 weeks gestation of pregnancy
CPT/HCPCS: 76818

== ENCOUNTER 2023-05-26 07:28 | Outpatient (OUT) | payer OTHER, MEDICAID, SELFPAY ==
[2023-05-26 14:57] VITALS: BP 170/87; PULSE 100
[2023-05-26 15:04] VITALS: BP 168/78; PULSE 96
[2023-05-26 15:10] VITALS: BP 171/77; PULSE 96
[2023-05-26 15:15] VITALS: BP 168/74; PULSE 100
[2023-05-26 15:23] VITALS: BP 138/78; PULSE 92
== END 2023-05-26 16:01 | disposition home or self-care (01) ==
LOC: FBCO 07:28 → FBC 14:53
PROVIDERS: Visit Provider Obstetrics & Gynecology
DX: O36.60X0 Maternal care for excessive fetal growth, unspecified trimester, not applicable or unspecified (principal); Z3A.00 Weeks of gestation of pregnancy not specified
CPT/HCPCS: 59025; 87081

== ENCOUNTER 2023-05-26 21:15 | Outpatient (REF) | payer OTHER, MEDICAID, SELFPAY | END 2023-05-26 21:16 | disposition home or self-care (01) | LOC: LAB 21:15 | PROVIDERS: Visit Provider Physician Assistant | DX: Z34.93 Encounter for supervision of normal pregnancy, unspecified, third trimester (principal) | CPT/HCPCS: 87081 ==

== ENCOUNTER 2023-05-30 07:40 | Outpatient (OUT) | payer OTHER, MEDICAID, SELFPAY ==
[2023-05-30 14:57] VITALS: BP 147/81; PULSE 95
--- NOTE | 2023-05-30 15:22 | US_ITS ---
[address] [address] Patient Name: CARMENZA PERALES MRN: [id number] date: 2000 Sex: F Assigned Patient Location: US Current Patient Location: US Accession/Order Number: [id number] Exam Date: 05/30/2023 15:30 Report Date: 05/30/2023 16:05 At the request of: ZAINAB FREITAS Procedure: US OB BPP w non-stress EXAMINATION: US OB BPP w non-stress HISTORY: EXCESSIVE GROWTH O36.63X1 COMPARISON: No relevant comparison available. TECHNIQUE: Ultrasound biophysical profile was performed in the radiology department. non-reactive stress testing was performed by nursing staff in the birthing center. FINDINGS: BREATHING MOVEMENTS: 2.0 GROSS BODY MOVEMENTS: 2.0 TONE: 2.0 QUALITATIVE AMNIOTIC FLUID VOLUME: 2.0 PRESENTATION: CEPHALIC HEART RATE: 160.7 bpm H.B./min AMNIOTIC FLUID VOLUME: 16.5 cm cm GESTATIONAL AGE: 36 weeks 5 days CONCLUSION: Total biophysical profile score: 8.0 Electronically authenticated by: JEN GEORGE Date: 05/30/2023 16:05
== END 2023-05-30 15:50 | disposition home or self-care (01) ==
LOC: US 07:40 → FBC 14:53
PROVIDERS: Visit Provider Obstetrics & Gynecology
DX: O36.63X1 Maternal care for excessive fetal growth, third trimester, fetus 1 (principal); Z3A.36 36 weeks gestation of pregnancy
CPT/HCPCS: 76818

== ENCOUNTER 2023-06-02 07:27 | Outpatient (OUT) | payer OTHER, MEDICAID, SELFPAY ==
--- OUTSIDE RECORDS SUMMARY | 2023-06-02 10:24 | XMS_ITS | CCD ---
Author Name Unknown Address [address] [place] [address] Organization [facility] Care Team Providers Care Entry Level Machine Operator Name Role Phone [facility] Unavailable ZENA ., DR LAMB Consulting Unavailable ZENA ., DR LAMB Attending Unavailable ZENA ., DR LAMB Admitting Unavailable [facility] Unavailable ZENA ., DR LMAB Admitting Unavailable ZENA ., DR LAMB Consulting Unavailable ZENA ., DR LAMB Attending Unavailable IZAIAH RAYGOZA Consulting Unavailable AGNES ARANDA Consulting Unavailable ZENA ., DR LAMB Admitting Unavailable [facility] Unavailable ZENA ., DR LAMB Consulting Unavailable ZENA ., DR LAMB Attending Unavailable CONCHA HERNANDEZ Consulting Unavailable CHRISTEL GONZALEZ Consulting Unavailable Roderick Lopesy Attending Provider [facility] Unavailable Zainab Lopes Attending Unavailable Zainab [...] Fibrinogenon 04-25-2023 Fibrinogen 395 mg/dL High 200-393 [facility] Comment on above: Result Comment: A he matocrit value greater than 55% may lead to inaccurate results in coagulation testing. Patients having hematocrit values >55% require a special collection tube for coagulation studies. Please contact the laboratory at [phone] for redraw instructions. PERFORMED BY: [place] [address] PATHOLOGIST SCREENPLAY WRITER PHAM SUAREZ M.D. Performed By: #### F IB-C #### [address] Fibrinogen [Mass/volume] in Platelet poor plasma by Coagulation assayOrdered By: Zainab Lopes on 04-25-2023 Fibrinogen Coag (PPP) [Mass/Vol] 395 mg/dL 200-393 [facility] Comment on above: A hematocrit value g reater than 55% may lead to inaccurate results in coagulation testing. Patients having hematocrit values >55% require a special collection tube for coagulation studies. Please contact the laboratory at [phone] for redraw instructions. PREG QUANT HCGon 10-20-2022 HCG QUANT 8286 mIU/mL Normal [facility] Comment on above: Performed By: #### P REGQNT #### [facility] [address] [address] [address] Nicole Roberts HCG RANGE SEE BELOW Normal [facility] Comment on above: Result Comment: 5-50 0.2-1 WEEK 50-500 1-2 WEEKS 100-5,000 2-3 WEEKS 500-10,000 3-4 WEEKS 1,000-50,000 4-5 WEEKS 10,000-100,000 5-6 WEEKS 15,000-200,000 6-8 WEEKS 10,000-100,000 2-3 MONTHS Performed By: #### P REGQNT #### [facility] [address] [place] [address] Dr. Nicole Roberts PREG QUANT HCGon 10-18-2022 HCG QUANT 4656 mIU/mL Normal [facility] Comment on above: Performed By: #### P REGQNT #### [facility] [address] [place] [address] Dr. Nicole Roberts HCG RANGE SEE BELOW Normal [facility] Comment on above: Result Comment: 5-50 0.2-1 WEEK 50-500 1-2 WEEKS 100-5,000 2-3 WEEKS 500-10,000 3-4 WEEKS 1,000-50,000 4-5 WEEKS 10,000-100,000 5-6 WEEKS 15,000-200,000 6-8 WEEKS 10,000-100,000 2-3 MONTHS Performed By: #### P REGQNT #### [facility] [address] [place] [address] Dr. Nicole Roberts CBC AUTO DIFFon 07-23-2022 BASO # 0.1 103/ul Normal 0.0-0.1 [facility] Comment on above: Performed By: #### C BC #### [facility] [address] [place] [address] Dr. Nicole Roberts Basophils/100 WBC (Bld) 0.7 % Normal 0.2-2.0 [facility] Comment on above: Performed By: #### C BC #### [facility] [address] [place] [address] Dr. Nicole Roberts EO # 0.1 103/ul Normal 0.0-0.7 [facility] Comment on above: Performed By: #### C BC #### [facility] [address] [place] [address] Dr. Nicole Roberts Eosinophils/100 WBC (Bld) 1.1 % Normal 0.9-7.0 [facility] Comment on above: Performed By: #### C BC #### [facility] [address] [place] [address] Dr. Nicole Roberts Erythrocyte distribution width (RBC) [Ratio] 14.6 % Normal 11.0-15.0 [facility] Comment on above: Performed By: #### C BC #### [facility] [address] [place] [address] Dr. Nicole Roberts Hematocrit (Bld) [Volume fraction] 37.7 % Normal 36.0-48.0 [facility] Comment on above: Performed By: #### C BC #### [facility] [address] [place] [address] Dr. Nicole Roberts Hemoglobin (Bld) [Mass/Vol] 12.2 g/dL Normal 12.0-16.0 [facility] Comment on above: Performed By: #### C BC #### [facility] [address] [place] [address] Dr. Nicole Roberts IG # 0.02 10e3/ul Normal 0.00-0.03 [facility] Comment on above: Performed By: #### C BC #### [facility] [address] [place] [address] Dr. Nicole Roberts IG % 0.3 % Normal 0.0-0.5 [facility] Comment on above: Performed By: #### C BC #### [facility] [address] [place] [address] Dr. Nicole Roberts LYMPH # 2.2 103/ul Normal 1.2-3.8 [facility] Comment on above: Performed By: #### C BC #### [facility] [address] [place] [address] Dr. Nicole Roberts Lymphocytes/100 WBC (Bld) 30.8 % Normal 20.5-60.0 [facility] Comment on above: Performed By: #### C BC #### [facility] [address] [place] [address] Dr. Nicole Roberts MANUAL DIFF REQ NO Normal [facility] Comment on above: Performed By: #### C BC #### [facility] [address] [place] [address] Dr. Nicole Roberts MCH (RBC) [Entitic mass] 25.4 pg Critically low 26.7-34.0 [facility] Comment on above: Performed By: #### C BC #### [facility] [address] [address] [address] Nicole Roberts MCHC (RBC) [Mass/Vol] 32.4 g/dL Normal 29.9-35.2 [facility] Comment on above: Performed By: #### C BC #### [facility] [address] [address] [address] Nicole Roberts MCV (RBC) [Entitic vol] 78.4 fL Critically low 81.0-99.0 [facility] Comment on above: Performed By: #### C BC #### [facility] [address] [address] [address] Nicole Roberts MONO # 0.6 103/ul Normal 0.3-0.8 [facility] Comment on above: Performed By: #### C BC #### [facility] [address] [place] [address] Dr. Nicole Roberts Monocytes/100 WBC (Bld) 8.2 % Normal 1.7-12.0 [facility] Comment on above: Performed By: #### C BC #### [facility] [address] [place] [address] Dr. Nicole Roberts NEUT # 4.2 103/ul Normal 1.4-6.5 [facility] Comment on above: Performed By: #### C BC #### [facility] [address] [place] [address] Dr. Nicole Roberts Neutrophils/100 WBC (Bld) 58.9 % Normal 43.0-75.0 [facility] Comment on above: Performed By: #### C BC #### [facility] [address] [address] [address] Nicole Roberts Platelet mean volume (Bld) [Entitic vol] 9.5 fL Normal 9.5-13.5 [facility] Comment on above: Performed By: #### C BC #### [facility] [address] [address] [address] Nicole Roberts PLT 294 103/ul Normal 150-450 [facility] Comment on above: Performed By: #### C BC #### [facility] [address] [address] [address] Nicole Roberts RBC 4.81 106/ul Normal 4.20-5.40 [facility] Comment on above: Performed By: #### C BC #### [facility] [address] [place], [place] [address] Dr. Nicole Roberts WBC 7.1 103/ul Normal 4.0-11.0 [facility] Comment on above: Performed By: #### C BC #### [facility] [address] [address] [address] Nicole Roberts PREG QUANT HCGon 07-23-2022 HCG QUANT <[address] [facility] Comment on above: Performed By: #### P REGQNT #### [facility] [address] [place] [address] Dr. Nicole Roberts HCG RANGE SEE BELOW Normal [facility] Comment on above: Result Comment: 5-50 0.2-1 WEEK 50-500 1-2 WEEKS 100-5,000 2-3 WEEKS 500-10,000 3-4 WEEKS 1,000-50,000 4-5 WEEKS 10,000-100,000 5-6 WEEKS 15,000-200,000 6-8 WEEKS 10,000-100,000 2-3 MONTHS Performed By: #### P REGQNT #### [facility] [address] [place] [address] Dr. Nicole Roberts Encounters Encounter Date Encounter Type Care Provider Facility Start: 05-26-2023 End: 05-26-2023 ambulatory WOOD SANTANA Not Available Start: 05-19-2023 End: 05-19-2023 ambulatory ZAINAB LOPES Not Available Start: 05-03-2023 End: 05-03-2023 ambulatory WOOD SANTANA Not Available Start: 04-25-2023 End: 04-25-2023 ambulatory Shira Ray Facility:[facility] Start: 04-25-2023 End: 04-25-2023 ambulatory Zainab Lopes Work Phone: [facility] Work Phone: Start: 04-25-2023 End: 04-25-2023 Departed Referred Zainab Lopes Work Phone: [facility] [place] Work Phone: Start: 10-18-2022 ambulatory SHIRA RAY Facility: [facility] Start: 07-23-2022 Encounter for preprocedural cardiovascular examination DR ZAINAB LOPES . [facility] Start: 07-23-2022 End: 07-23-[address] ZAINAB LOEPS . Facility:[facility] Start: 07-21-2022 End: 07-22-2022 ambulatory SHIRA RAY Facility:[facility] Start: 07-21-2022 End: 07-22-2022 Encounter for preprocedural cardiovascular examination SHIRA RAY Facility:[facility] Payers Date Payer Category Payer Self-pay 2023 Unknown [id number] 2022 Medicaid [id number] 2001 Unknown [id number] 2.16.84 [id number] 2001 Unknown [id number] 2.16.84 [id number] 2001 Unknown [id number] 2.16.84 [id number] 2001 Unknown [id number] [id number] 2001 Unknown [id number] [id number] 2001 Unknown [id number] 2.16.840 .[id number] 1959 Unknown [id number] Unknown [id number] 2.16.8 [id number] Social History Date Type Detail Facility [facility] Work Phone: Start: 2000 Sex Assigned At Female F [facility] Clinical Note 07-23-2022 Note Date & Type Note Facility 07-23-2022 Note OPERATIVE NOTE OPERATION DATE: 07/23/2022 PROCEDURE: Diagnostic laparoscopy with right ovarian cystotomy using monopolar scissors with chromopertubation. PREOPERATIVE DIAGNOSIS: Pelvic pain, right ovarian cyst, dysmenorrhea. POSTOPERATIVE DIAGNOSIS: Pelvic pain, right ovarian cyst, dysmenorrhea, including posterior endometriosis posterior cul-de-sac. ANESTHESIA: General. SURGEON: Zainab Lopes D.O. BORDER INSPECTOR: MIKEY Garcia URINE OUTPUT: Yellow and clear. [...] to Recovery Room in stable condition. [facility] Clinical Note 07-21-2022 Note Date & [...] by: AGNES ARANDA Date: 2022-07-21 14:22 [facility] Evaluation note Note Date & Type Note Facility Evaluation note No assessment information availa [facility] Work Phone: Summary Purpose Family History No Family History Records FoundNo Family History Records FoundNo Family History Records Found Advance Directives No Advanced Directives Records FoundNo Advanced Directives Records FoundNo Advanced Directives Records Found Additional Source Comments INFORMATION SOURCE (unrecogn ized section and content) DATE CREATED AUTHOR 10/21/2022 [facility] DATE CREATED AUTHOR AUTHOR'S ORGANIZ ATION 05/14/2023 [facility] DATE CREATED AUTHOR AUTHOR'S ORGANIZ ATION 05/28/2023 [facility] EPIC Care Teams (unrecognized sec [...] BE BASED ON THE PRIMARY CLINICAL RECORDS. [employer] provides no warranty or guarantee of the accuracy or completeness of information in this document.
[2023-06-02 15:27] VITALS: BP 143/76; PULSE 108
== END 2023-06-02 16:02 | disposition home or self-care (01) ==
LOC: FBCO 07:28 → FBC 14:55
PROVIDERS: Visit Provider Obstetrics & Gynecology
DX: O36.63X1 Maternal care for excessive fetal growth, third trimester, fetus 1 (principal)
CPT/HCPCS: 59025

== ENCOUNTER 2023-06-07 07:55 | Outpatient (OUT) | payer OTHER, MEDICAID, SELFPAY ==
--- NOTE | 2023-06-07 15:06 | US_ITS ---
[address] [address] Patient Name: CARMENZA PERALES MRN: [facility]:[id number] date: 2000 Sex: F Assigned Patient Location: [facility] Current Patient Location: Accession/Order Number: [id number] Exam Date: 06/07/2023 15:10 Report Date: 06/07/2023 21:43 At the request of: ZAINAB FREITAS Procedure: US OB BPP w non-stress EXAMINATION: US OB BPP w non-stress HISTORY: EXCESSIVE GROWTH AFFECTING O36.63X1 COMPARISON: Ultrasound OB biophysical 05/30/2023 TECHNIQUE: Ultrasound biophysical profile was performed in the radiology department. BREATHING MOVEMENTS: 2.0 GROSS BODY MOVEMENTS: 2.0 TONE: 2.0 QUALITATIVE AMNIOTIC FLUID VOLUME: 2.0 PRESENTATION: CEPHALIC HEART RATE: 144.4 bpm bpm. AMNIOTIC FLUID VOLUME: 14.4 cm GESTATIONAL AGE: 37 weeks 6 days CONCLUSION: Total biophysical profile score 8.0. Electronically authenticated by: MACHO ADORNO Date: 06/07/2023 21:43
[2023-06-07 16:08] VITALS: BP 133/82; PULSE 101
== END 2023-06-07 16:26 | disposition home or self-care (01) ==
LOC: US 07:56 → FBC 15:01
PROVIDERS: Visit Provider Obstetrics & Gynecology
DX: O36.63X1 Maternal care for excessive fetal growth, third trimester, fetus 1 (principal); Z3A.37 37 weeks gestation of pregnancy
CPT/HCPCS: 76818

== ENCOUNTER 2023-06-07 21:55 | Inpatient (IN) | payer OTHER, MEDICAID, SELFPAY ==
[2023-06-07 22:15] VITALS: BP 144/84; PULSE 110
[2023-06-07 22:32] VITALS: BP 144/84; PULSE 110; RESP 18; TEMP 37
[2023-06-07] MEDS: 0.9 % SODIUM CHLORIDE 1,000 ML 125 ML IV (22:50)
[2023-06-07] MEDS: OXYTOCIN/0.9 % SODIUM CHLORIDE 10 UNITS/500 ML PLAST..BAG 6 UNIT IV (22:51)
[2023-06-07 23:00] VITALS: BP 140/84; PULSE 102
[2023-06-07 23:03] LABS: Hematocrit 35.3 % (36.0-48.0); Hemoglobin 11.4 g/dL (12.0-16.0); Mean Corpuscular HGB Conc 32.3 g/dL (29.9-35.2); Mean Corpuscular Hemoglobin 27.3 pg (26.7-34.0); Mean Corpuscular Volume 84.7 fL (81.0-99.0); Mean Platelet Volume 11.1 fL (9.5-13.5); Platelet Count 221 10^3/uL (150-450); Red Blood Count 4.17 10^6/uL (4.20-5.40); Red Cell Distribution Width 14.8 % (11.0-15.0); White Blood Count 11.8 10^3/uL (4.0-11.0)
[2023-06-07 23:20] VITALS: BP 141/76; PULSE 105
[2023-06-07 23:29] LABS: Amphetamine Screen Urine NEGATIVE (NEGATIVE); Barbiturates Screen Urine NEGATIVE (NEGATIVE); Benzodiazepines Screen Urine NEGATIVE (NEGATIVE); Buprenorphine Screen Urine NEGATIVE (NEGATIVE); Cannabinoid Screen Urine NEGATIVE (NEGATIVE); Cocaine Screen Urine NEGATIVE (NEGATIVE); Methadone Screen Urine NEGATIVE (NEGATIVE); Methamphetamines Screen Urine NEGATIVE (NEGATIVE); Opiate Screen Urine NEGATIVE (NEGATIVE); Oxycodone Screen Urine NEGATIVE (NEGATIVE); Phencyclidine Screen Urine NEGATIVE (NEGATIVE); Tricyclic Antidepressant Urine NEGATIVE (NEGATIVE)
[2023-06-07 23:40] VITALS: BP 134/76; PULSE 98
[2023-06-08] VITALS (101 sets, daily range): BP systolic 87–171; BP diastolic 47–93; PULSE 85–131; RESP 12–24; TEMP 36.6–37; O2SAT 97–100
--- NOTE | 2023-06-08 01:15 | W.PC.ACHO ---
Registration Status: ADM IN Primary Language: Venezuelan Preferred Language: Venezuelan Active Medications Generic Name Dose Route Start Last Admin Trade Name Maria Fernanda PRN Reason Stop Dose Admin Carboprost Tromethamine 250 mcg 06/07/23 22:07 Carboprost Tromethamine 250 Mcg/Ml 1 Ml Vial IM 06/09/23 22:07 Q15M PRN Bleeding Sodium Chloride 1,000 mls @ 125 mls/hr 06/07/23 22:15 06/07/23 22:50 Sodium Chloride 0.9% 1,000 Ml IV 125 mls/hr .Q8H LEIDA Administration Oxytocin/Sodium Chloride 10 units in 500 mls @ 6 mls/hr 06/07/23 22:15 06/07/23 22:51 Pitocin 10 Unit/500 Ml-Ns IV 2 milliunit/min CONT LEIDA 6 mls/hr Administration Protocol 2 MILLIUNIT/MIN Oxytocin/Sodium Chloride 20 units in 1,000 mls @ 125 mls/hr 06/07/23 22:15 Pitocin 20 Unit/1,000 Ml-Ns IV 06/08/23 06:14 Q8H LEIDA Lidocaine 5 ml 06/07/23 22:07 Lidocaine Viscous 2% 15 Ml Solution TOPICAL ONCE PRN Pain Lidocaine 1 ml 06/07/23 22:07 Lidocaine Hcl 1% 200 Mg/20 Ml Mdv INJ ONCE PRN Pain Methylergonovine Maleate 0.2 mg 06/07/23 22:07 Methylergonovine Maleate 0.2 Mg/Ml Ampule IM 06/09/23 22:07 ONCE PRN Uterine Contractility/Contract Methylergonovine Maleate 0.2 mg 06/07/23 22:07 Methylergonovine Maleate 0.2 Mg Tablet PO 06/09/23 22:07 Q4H PRN Uterine Contractility/Contract Misoprostol 600 mcg 06/07/23 22:07 Misoprostol 100 Mcg Tablet PO 06/09/23 22:07 ONCE PRN Uterine Bleeding Misoprostol 800 mcg 06/07/23 22:07 Misoprostol 100 Mcg Tablet SL 06/09/23 22:07 ONCE PRN Uterine Bleeding Misoprostol 1,000 mcg 06/07/23 22:07 Misoprostol 100 Mcg Tablet AR 06/09/23 22:07 ONCE PRN Uterine Bleeding Ondansetron HCl 4 mg 06/07/23 22:07 Ondansetron Pf 4 Mg/2 Ml Vial IV Q6H PRN Nausea And Vomiting Ondansetron HCl 4 mg 06/07/23 22:07 Ondansetron 4 Mg Rapdis Tablet SL Q6H PRN Nausea And Vomiting Oxytocin 10 unit 06/07/23 22:07 Oxytocin 10 Unit/Ml Vial IM 06/09/23 22:07 ONCE PRN Bleeding Diet Category Date Time Status Regular Consistency Diet Diet 06/07/23 22:09 Active IV Insertion/Site Date of IV Line Insertion [20g 06/07/23 left Hand] IV Insertion Time [20g left 22:20 Hand] Neurology Patient orientation (short person,place,time,situation list) Respiratory Oxygen Delivery Method Room Air
[2023-06-08] MEDS: 0.9 % SODIUM CHLORIDE 1,000 ML 125 ML IV ×3 (06:51→18:45)
--- NOTE | 2023-06-08 07:41 | W.PC.ACHO ---
Registration Status: ADM IN Primary Language: Belarusian Preferred Language: Belarusian Active Medications Generic Name Dose Route Start Last Admin Trade Name Maria Fernanda PRN Reason Stop Dose Admin Carboprost Tromethamine 250 mcg 06/07/23 22:07 Carboprost Tromethamine 250 Mcg/Ml 1 Ml Vial IM 06/09/23 22:07 Q15M PRN Bleeding Sodium Chloride 1,000 mls @ 125 mls/hr 06/07/23 22:15 06/08/23 06:51 Sodium Chloride 0.9% 1,000 Ml IV 125 mls/hr .Q8H LEIDA Administration Oxytocin/Sodium Chloride 10 units in 500 mls @ 6 mls/hr 06/07/23 22:15 06/08/23 04:35 Pitocin 10 Unit/500 Ml-Ns IV 20 milliunit/min CONT LEIDA 60 mls/hr Infusion Protocol 2 MILLIUNIT/MIN Lidocaine 5 ml 06/07/23 22:07 Lidocaine Viscous 2% 15 Ml Solution TOPICAL ONCE PRN Pain Lidocaine 1 ml 06/07/23 22:07 Lidocaine Hcl 1% 200 Mg/20 Ml Mdv INJ ONCE PRN Pain Methylergonovine Maleate 0.2 mg 06/07/23 22:07 Methylergonovine Maleate 0.2 Mg/Ml Ampule IM 06/09/23 22:07 ONCE PRN Uterine Contractility/Contract Methylergonovine Maleate 0.2 mg 06/07/23 22:07 Methylergonovine Maleate 0.2 Mg Tablet PO 06/09/23 22:07 Q4H PRN Uterine Contractility/Contract Misoprostol 600 mcg 06/07/23 22:07 Misoprostol 100 Mcg Tablet PO 06/09/23 22:07 ONCE PRN Uterine Bleeding Misoprostol 800 mcg 06/07/23 22:07 Misoprostol 100 Mcg Tablet SL 06/09/23 22:07 ONCE PRN Uterine Bleeding Misoprostol 1,000 mcg 06/07/23 22:07 Misoprostol 100 Mcg Tablet FL 06/09/23 22:07 ONCE PRN Uterine Bleeding Ondansetron HCl 4 mg 06/07/23 22:07 Ondansetron Pf 4 Mg/2 Ml Vial IV Q6H PRN Nausea And Vomiting Ondansetron HCl 4 mg 06/07/23 22:07 Ondansetron 4 Mg Rapdis Tablet SL Q6H PRN Nausea And Vomiting Oxytocin 10 unit 06/07/23 22:07 Oxytocin 10 Unit/Ml Vial IM 06/09/23 22:07 ONCE PRN Bleeding Diet Category Date Time Status Regular Consistency Diet Diet 06/07/23 22:09 Active IV Insertion/Site Date of IV Line Insertion [20g 06/07/23 left Hand] IV Insertion Time [20g left 22:20 Hand] Neurology Patient orientation (short person,place,time,situation list) Respiratory Oxygen Delivery Method Room Air
--- NOTE | 2023-06-08 09:07 | PM.OBHP ---
OB - H&P: HPI History of Present Illness Chief complaint: Induction : 2 Para: 0 Gestational age based on last menstrual period: 38wks Indications for induction: induced hypertension History of Present Dating criteria: LMP confirmed by 1st trimester US care: good care Ultrasounds: normal 1st trimester US and normal mid trimester US complications: induced hypertension Medical complications OB: none Labs Blood type: A (-) negative Rubella: immune RPR/VDLR: nonreactive GBS status: negative HBsAG: negative Review of Systems ROS Status of ROS: 10 or more systems reviewed and unremarkable except as noted in history and below Meds Home Medications and Allergies Home Medications Medication Instructions Recorded Confirmed Type vits,calcium 21-iron fum 1 tab PO DAILY 06/02/23 06/07/23 History 14 mg iron-folic acid 400 mcg tablet ( Complete) Allergies Allergy/AdvReac Type Severity Reaction Status Date / Time No Known Drug Allergies Allergy Verified 06/02/23 15:38 Exam Constitutional Vital Signs, click to edit/add: Last Vital Signs Temp 98.6 F 06/07/23 22:32 Pulse 96 H 06/08/23 09:01 Resp 18 06/07/23 22:32 BP 146/93 H 06/08/23 09:01 O2 Del Method Room Air 06/07/23 22:32 Documenting provider has reviewed patient's vital signs: yes Common normals: no apparent distress Respiratory Common normals: normal respiratory effort and clear to auscultation bilaterally Cardio Common normals: regular rate and regular rhythm GI Common normals: Normal to inspection, nondistended, normoactive bowel sounds present Extremity Common normals: no clubbing, cyanosis or edema and no calf tenderness Results Labs Labs: Short CBC 06/07/23 Range/Units 22:52 WBC 11.8 H (4.0-11.0) 10^3/uL Hgb 11.4 L (12.0-16.0) g/dL Hct 35.3 L (36.0-48.0) % Plt Count 221 (150-450) 10^3/uL OB - A/P Assessment and Plan (1) Mild preeclampsia: Plan iup at 38wks, mild preeclampsia-induction of labor, cont efm, routine labs
[2023-06-08] MEDS: FENTANYL CITRATE/PF 100 MCG/2 ML VIAL EPIDURAL ×2 (17:06)
[2023-06-08] MEDS: ROPIVACAINE HCL/PF 400 MG/200 ML PREMIX 6 MG EPIDURAL (17:07)
[2023-06-08] MEDS: FAMOTIDINE/PF 20 MG/2 ML VIAL IV (18:53)
[2023-06-08] MEDS: CITRIC ACID/SODIUM CITRATE 30 ML SOLUTION ORACIT SHOHL'S SOLN PO (18:53)
--- NOTE | 2023-06-08 19:37 | PM.OBPRCCS ---
Procedure Pre-op/Post-op diagnoses: Pre-Op/Post-Op Diagnoses Operation Date: 06/08/23 18:40 <No data on this case meets the specified criteria> Procedure: Procedures Operation Date: 06/08/23 18:40 Actual Procedure Side Surgeon p Not Applicable Jonathan Lopes DO Medical Office Receptionist Assistant: Marya Doll Estimated blood loss (mL): 575 Disposition: PACU Anesthesia type: Epidural
--- NOTE | 2023-06-08 19:37 | PM.ONB ---
Brief Operative Note Date of procedure: 06/08/23 Pre-op diagnosis: iup at 38wks, mild preeclampsia, cpd Post-op diagnosis: same as pre-op Procedure: NAME OF PROCEDURE: [ section ] PROCEDURE: Patient was taken back to the Operating Room where she was given a spinal anesthesia with Duramorph without difficulty. She was prepped and draped in the normal sterile fashion. A Pfannenstiel skin incision was then made 2 cm above the symphysis pubis and carried down to underlying rectus fascia using a Bovie. The fascia was incised in the midline and extended laterally using Gomes scissors. Two Bahman clamps were placed on the superior aspect of the fascia and dissected off the underlying rectus muscles. The same was performed on the inferior aspect as well. The muscles were then in the midline. Peritoneum was identified and entered bluntly. The peritoneum was then extended superiorly and inferiorly with good visualization of the bladder. The bladder blade was inserted. A low transverse incision was made on the patient's uterus and extended laterally digitally. The was then delivered atraumatically after the bladder blade was removed in the cephalic position. The cord was clamped and cut. Cord blood was obtained. The infant was handed off to awaiting team. The patient's placenta was spontaneously delivered. The uterus was then exteriorized. The uterus was cleared of all clots and debris. The bladder blade was reinserted. The patient's uterine incision was closed using #0 Vicryl in a running lock fashion. Excellent hemostasis was assured. The uterus was then returned to the patient's abdomen. The patient's abdomen was copiously irrigated using warm saline. Peritoneal gutters were cleared of all clots and debris. Again excellent hemostasis was assured. The patient's peritoneum was closed using 3-0 Vicryl in a running fashion. The patient's fascia was closed using #0 Vicryl in a running fashion. The patient's skin was closed using 4-0 Vicryl subcuticularly. The patient tolerated the procedure well. Sponge, lap, and needle counts were correct x2. The patient was taken to the Recovery Room in stable condition. Anesthesia: epidural Surgeon: Jonathan Lopes [employer] Collection Clerk: Marya Doll Estimated blood loss (mL): 575 Pathology: none sent Condition: stable Disposition: PACU Urinary Catheter Management Urinary Catheter Management Urethral: Cath placed during this visit: yes Urethral indwelling: No Insertion date: 06/08/23 Insertion time: 18:15
[2023-06-08] MEDS: OXYTOCIN/0.9 % SODIUM CHLORIDE 20 UNITS/1,000 ML PLAST..BAG 125 UNIT IV (20:15)
[2023-06-08] MEDS: KETOROLAC TROMETHAMINE 30 MG/ML VIAL IVP (23:28)
[2023-06-09] VITALS (9 sets, daily range): BP systolic 120–147; BP diastolic 58–75; PULSE 97–105; RESP 16–18; TEMP 36.4–37.4
[2023-06-09] MEDS: CEFAZOLIN SODIUM/DEXTROSE,ISO 2 GM/50 ML PIGGYBACK IV (00:35)
--- NOTE | 2023-06-09 00:50 | PC.NURSE ---
06/08/2023 20:30 Report recv'd from Timothy Ortega RN. Pt recovered in [facility]. This RN assuming care at this time
--- NOTE | 2023-06-09 02:28 | PC.NURSE ---
Pt uses call light and says she is bleeding. Rn to room. Moderate gush of blood noted on chucks. Fundus firms with massage.Pt denies being lightheaded, dizziness or SOB. Skin pink, warm and dry. Toribio care performed. New chucks and toribio pad under pt. Approx 2-3 mins after placing a clean pad- Pt states I think there is more RN at bedside gently massaged fundus and an egg size clot was expressed with fundus firming quickly. No active bleeding noted. New peripad under Pt.
--- NOTE | 2023-06-09 03:04 | PC.NURSE ---
Pt reports a gush. RNs to room. Small to moderate gush with xs stringy like clot. Fundus firm following. new toribio pad applied.
[2023-06-09] MEDS: KETOROLAC TROMETHAMINE 30 MG/ML VIAL IVP ×2 (06:01→12:38)
[2023-06-09 07:05] LABS: Basophils Percent Auto 0.3 % (0.2-2.0); Eosinophils Percent Auto 0.4 % (0.9-7.0); Hematocrit 28.4 % (36.0-48.0); Hemoglobin 9.1 g/dL (12.0-16.0); Immature Granulocytes Abs Auto 0.08 10^3/uL (0.00-0.03); Immature Granulocytes Pct Auto 0.8 % (0.0-0.5); Lymphocytes Absolute Auto 1.9 10^3/uL (1.2-3.8); Lymphocytes Percent Auto 17.7 % (20.5-60.0); Mean Corpuscular Hemoglobin 27.2 pg (26.7-34.0); Monocytes Absolute Auto 1.1 10^3/uL (0.3-0.8); Monocytes Percent Auto 10.7 % (1.7-12.0); Neutrophils Absolute Auto 7.3 10^3/uL (1.4-6.5); Neutrophils Percent Auto 70.1 % (43.0-75.0); Platelet Count 182 10^3/uL (150-450); Red Blood Count 3.34 10^6/uL (4.20-5.40); White Blood Count 10.5 10^3/uL (4.0-11.0)
[2023-06-09] MEDS: DOCUSATE SODIUM 100 MG CAPSULE PO ×2 (08:45→21:29)
[2023-06-09] MEDS: RHO(D) IMMUNE GLOBULIN 1,500 UNIT SYRINGE 1500 UNIT IV (08:46)
--- NOTE | 2023-06-09 12:53 | PM.OBPN ---
OB - PN: Subj Subjective Patient comments: no complaints and tolerating diet [place] infant status: doing well feeding status: exclusively bottle feeding Narrative: FEELS WELL. NO HEADACHE NO VISUAL CHANGES. Exam Constitutional Vital Signs, click to edit/add: Last Vital Signs Temp 98.6 F 06/09/23 08:10 Pulse 105 H 06/09/23 12:31 Resp 18 06/09/23 08:10 BP 127/58 06/09/23 12:31 Pulse Ox 99 06/08/23 22:31 O2 Del Method Room Air 06/09/23 08:10 Documenting provider has reviewed patient's vital signs: yes Common normals: no apparent distress, oriented x3, no limitations, alert and well nourished General appearance: cooperative and comfortable Orientation/consciousness: Yes awake, Yes oriented to person, Yes oriented to place and Yes oriented to time HENMT Common normals: normocephalic and head/scalp atraumatic Eye Pupil: PERRL and accommodation reflex normal Neck & C-Spine Common normals: full ROM Respiratory Common normals: normal respiratory effort Cardio Common normals: regular rate and regular rhythm GI Common normals: Normal to inspection, nondistended, normoactive bowel sounds present and soft to palpation Common normals: no CVA tenderness Back & Pelvis Common normals: no CVA tenderness Extremity Common normals: normal to inspection, full ROM and no calf tenderness Neuro Common normals: oriented x3, CN's II-XII intact bilaterally, moves all extremities, no focal motor deficits and no sensory deficits noted Psych Common normals: mental status grossly normal, thought process normal, cooperative, affect normal and speech normal Results Labs Labs: Short CBC 06/09/23 Range/Units 07:00 WBC 10.5 (4.0-11.0) 10^3/uL Hgb 9.1 L (12.0-16.0) g/dL Hct 28.4 L (36.0-48.0) % Plt Count 182 (150-450) 10^3/uL Urinary Catheter Management Urinary Catheter Management Urethral: Cath placed during this visit: yes Urethral indwelling: No Insertion date: 06/08/23 Insertion time: 18:15 OB - PN: A/P Assessment and Plan (1) Mild preeclampsia: Assessment and Plan: PRESENTLY BLOOD PRESSURES NORMAL. NO COMPLAINTS OF VISUAL CHANGES OR HEADACHE OR RUQ PAIN Qualifiers: Trimester: third trimester Qualified Code(s): O14.03 - Mild to moderate pre-eclampsia, third trimester (2) S/P : Assessment and Plan: INCISION DRY AND INTACT Plan ROUTINE POST OP AND POST CARE Plan - day: 2 Time Spent with Patient Time: Total time spent is greater than 50% in coordination of care (as documented) at patient's floor/unit and/or counseling patient: Total time spent with greater than 50% in coordination of care (as documented) at patient's floor/unit and/or counseling patient: less than 15 minutes
--- NOTE | 2023-06-09 19:12 | W.PC.ACHO ---
Registration Status: ADM IN Primary Language: Sierra Leonean Preferred Language: [place] Leonean Active Medications Generic Name Dose Route Start Last Admin Trade Name Freq PRN Reason Stop Dose Admin Al Hydroxide/Mg Hydroxide 2,400 mg 06/08/23 19:34 Magnesium Hydroxide 2,400 Mg/10 Ml Oral.Susp PO Q6H PRN Dyspepsia Carboprost Tromethamine 250 mcg 06/07/23 22:07 Carboprost Tromethamine 250 Mcg/Ml 1 Ml Vial IM 06/09/23 22:07 Q15M PRN Bleeding Diphenhydramine HCl 25 mg 06/08/23 19:34 Diphenhydramine Hcl 50 Mg/Ml (1ml) Vial IV 06/09/23 19:35 Q6H PRN Itching Docusate Sodium 100 mg 06/09/23 09:00 06/09/23 08:45 Docusate Sodium 100 Mg Capsule PO 100 mg BID LEIDA Administration Enoxaparin Sodium 40 mg 06/09/23 09:00 Enoxaparin Sodium 40 Mg/0.4 Ml Syringe SUBQ Q24H LEIDA Sodium Chloride 1,000 mls @ 125 mls/hr 06/07/23 22:15 06/08/23 18:45 Sodium Chloride 0.9% 1,000 Ml IV 125 mls/hr .Q8H LEIDA Administration Ibuprofen 800 mg 06/08/23 19:34 Ibuprofen 400 Mg Tablet PO Q8H PRN Pain Ketorolac Tromethamine 30 mg 06/08/23 19:34 06/09/23 12:38 Ketorolac Tromethamine 30 Mg/Ml Vial IVP 06/10/23 19:35 30 mg Q6H PRN Administration Pain Methylergonovine Maleate 0.2 mg 06/07/23 22:07 Methylergonovine Maleate 0.2 Mg/Ml Ampule IM 06/09/23 22:07 ONCE PRN Uterine Contractility/Contract Methylergonovine Maleate 0.2 mg 06/07/23 22:07 Methylergonovine Maleate 0.2 Mg Tablet PO 06/09/23 22:07 Q4H PRN Uterine Contractility/Contract Misoprostol 600 mcg 06/07/23 22:07 Misoprostol 100 Mcg Tablet PO 06/09/23 22:07 ONCE PRN Uterine Bleeding Misoprostol 800 mcg 06/07/23 22:07 Misoprostol 100 Mcg Tablet SL 06/09/23 22:07 ONCE PRN Uterine Bleeding Misoprostol 1,000 mcg 06/07/23 22:07 Misoprostol 100 Mcg Tablet IL 06/09/23 22:07 ONCE PRN Uterine Bleeding Ondansetron HCl 4 mg 06/07/23 22:07 Ondansetron 4 Mg Rapdis Tablet SL Q6H PRN Nausea And Vomiting Ondansetron HCl 4 mg 06/08/23 19:34 Ondansetron Pf 4 Mg/2 Ml Vial IV Q6H PRN Nausea And Vomiting Oxycodone/Acetaminophen 1 tab 06/08/23 19:34 Oxycodone Hcl/Acetaminophen 5mg/325mg PO Q4H PRN Pain Scale 4-6 Oxycodone/Acetaminophen 2 tab 06/08/23 19:34 Oxycodone Hcl/Acetaminophen 5mg/325mg PO Q4H PRN Pain Scale 7-10 Senna 17.2 mg 06/08/23 20:00 Sennosides 8.6 Mg Tablet PO QHS PRN Constipation Simethicone 80 mg 06/08/23 19:34 Simethicone 80 Mg Tab.Chew PO QID PRN Abdominal Distention Diet Category Date Time Status Regular Consistency Diet Diet 06/08/23 19:34 Active Neurology [place] coma scale total score 15 [place] coma scale total score 15 [place] coma scale total score 15 Respiratory Lung sounds [Bilateral clear Throughout] Lung sounds [Bilateral clear Throughout] Lung sounds [Bilateral clear Throughout] Pulse Oximetry 99 Pulse Oximetry 97 Pulse Oximetry 98 Pulse Oximetry 97 Pulse Oximetry 98 Pulse Oximetry 99 Pulse Oximetry 100 Pulse Oximetry 100 Pulse Oximetry 100 Pulse Oximetry 100 Pulse Oximetry 100 Pulse Oximetry 99 Pulse Oximetry 99 Pulse Oximetry 100 Pulse Oximetry 100 Pulse Oximetry 100 Pulse Oximetry 100 Oxygen Delivery Method Room Air Oxygen Delivery Method Room Air Oxygen Delivery Method Room Air Oxygen Delivery Method Room Air Oxygen Delivery Method Room Air Oxygen Delivery Method Room Air Oxygen Delivery Method Room Air Oxygen Delivery Method Room Air Oxygen Delivery Method Room Air Oxygen Delivery Method Room Air Oxygen Delivery Method Room Air Oxygen Delivery Method Room Air Oxygen Delivery Method Room Air Cardiology Heart Sounds Regular Catheter Urinary Catheter Date of 06/08/23 Insertion [Urethral] Urinary Catheter Date of 06/08/23 Insertion [Urethral] Urinary Catheter Time of 18:15 Insertion [Urethral] Urinary Catheter Time of 18:15 Insertion [Urethral] Date Urinary Catheter Removed 06/09/23
[2023-06-09] MEDS: IBUPROFEN 400 MG TABLET 800 MG PO (21:29)
[2023-06-10 03:12] VITALS: BP 138/80; PULSE 86
[2023-06-10 03:25] VITALS: BP 138/80; PULSE 86; RESP 16; TEMP 36.7
--- NOTE | 2023-06-10 07:17 | W.PC.ACHO ---
Registration Status: ADM IN Primary Language: Somali Preferred Language: Somali Active Medications Generic Name Dose Route Start Last Admin Trade Name Freq PRN Reason Stop Dose Admin Al Hydroxide/Mg Hydroxide 2,400 mg 06/08/23 19:34 Magnesium Hydroxide 2,400 Mg/10 Ml Oral.Susp PO Q6H PRN Dyspepsia Docusate Sodium 100 mg 06/09/23 09:00 06/09/23 21:29 Docusate Sodium 100 Mg Capsule PO 100 mg BID LEIDA Administration Enoxaparin Sodium 40 mg 06/09/23 09:00 Enoxaparin Sodium 40 Mg/0.4 Ml Syringe SUBQ Q24H LEIDA Sodium Chloride 1,000 mls @ 125 mls/hr 06/07/23 22:15 06/08/23 18:45 Sodium Chloride 0.9% 1,000 Ml IV 125 mls/hr .Q8H LEIDA Administration Ibuprofen 800 mg 06/08/23 19:34 06/09/23 21:29 Ibuprofen 400 Mg Tablet PO 800 mg Q8H PRN Administration Pain Ketorolac Tromethamine 30 mg 06/08/23 19:34 06/09/23 12:38 Ketorolac Tromethamine 30 Mg/Ml Vial IVP 06/10/23 19:35 30 mg Q6H PRN Administration Pain Ondansetron HCl 4 mg 06/07/23 22:07 Ondansetron 4 Mg Rapdis Tablet SL Q6H PRN Nausea And Vomiting Ondansetron HCl 4 mg 06/08/23 19:34 Ondansetron Pf 4 Mg/2 Ml Vial IV Q6H PRN Nausea And Vomiting Oxycodone/Acetaminophen 1 tab 06/08/23 19:34 Oxycodone Hcl/Acetaminophen 5mg/325mg PO Q4H PRN Pain Scale 4-6 Oxycodone/Acetaminophen 2 tab 06/08/23 19:34 Oxycodone Hcl/Acetaminophen 5mg/325mg PO Q4H PRN Pain Scale 7-10 Senna 17.2 mg 06/08/23 20:00 Sennosides 8.6 Mg Tablet PO QHS PRN Constipation Simethicone 80 mg 06/08/23 19:34 Simethicone 80 Mg Tab.Chew PO QID PRN Abdominal Distention Respiratory Oxygen Delivery Method Room Air Oxygen Delivery Method Room Air Oxygen Delivery Method Room Air Oxygen Delivery Method Room Air Oxygen Delivery Method Room Air Oxygen Delivery Method Room Air Oxygen Delivery Method Room Air Bowels Bowel Pattern No Bowel Movement Catheter Urinary Catheter Date of 06/08/23 Insertion [Urethral] Urinary Catheter Time of 18:15 Insertion [Urethral] Date Urinary Catheter Removed 06/09/23
--- NOTE | 2023-06-10 07:38 | PC.NURSE ---
This RN has reviewed charting & assessments by Hyacinth Smith, Nurse Cement Conveyor Operator.
[2023-06-10 08:31] VITALS: BP 124/68; PULSE 88; RESP 18; TEMP 36.4
[2023-06-10] MEDS: ENOXAPARIN SODIUM 40 MG/0.4 ML SYRINGE SUBQ (08:34)
[2023-06-10] MEDS: IBUPROFEN 400 MG TABLET 800 MG PO ×2 (08:35→16:03)
[2023-06-10] MEDS: DOCUSATE SODIUM 100 MG CAPSULE PO (08:35)
--- NOTE | 2023-06-30 | DS_ITS ---
DISCHARGE DATE: 06/30/2023 PRIMARY DIAGNOSES: 1. Intrauterine at 38 weeks. 2. Mild preeclampsia. 3. Cephalopelvic disproportion. PROCEDURE: section. HOSPITAL COURSE: As expected. Please see chart for full details. LABORATORY DATA: Please see chart. COMPLICATIONS: None. DISCHARGE CONDITION: Stable. CONSULTATION: Anesthesia. DISCHARGE INSTRUCTIONS: 1. Diet: Regular. 2. Medications: a. Percocet 5/325 one to two p.o. every 4-6 hours p.r.n. pain. b. Motrin 800 one p.o. every 8 hours p.r.n. pain. 3. Followup in one week. Restrictions: Pelvic rest for 6 weeks. No heavy lifting. May drive when pain free and no longer on narcotics. MTDD
== END 2023-06-10 19:45 | disposition home or self-care (01) | DRG 788 ==
PROVIDERS: Admitting Provider Obstetrics & Gynecology; Visit Provider Obstetrics & Gynecology
PROC: 10D00Z1 Extraction of Products of Conception, Low, Open Approach (ICD-10-PCS; CPT 59514; principal; 2023-06-08 18:40)
DX: O13.4 Gestational [pregnancy-induced] hypertension without significant proteinuria, complicating childbirth (principal); O14.04 Mild to moderate pre-eclampsia, complicating childbirth; O33.9 Maternal care for disproportion, unspecified; Z37.0 Single live birth; Z3A.38 38 weeks gestation of pregnancy; O26.893 Other specified pregnancy related conditions, third trimester; Z67.11 Type A blood, Rh negative
CPT/HCPCS: 36415; 51702; 59050; 80307; 85025; 85027; 85461; 86850; 86900; 86901; 96372; 96374; 96375; 96376; J2790

== ENCOUNTER 2024-02-01 19:24 | Outpatient (REF) | payer OTHER, MEDICAID, SELFPAY ==
--- OUTSIDE RECORDS SUMMARY | 2024-02-01 19:28 | XMS_ITS | CCD ---
Author Organization [facility] CliniSyal Care Team Providers Care Data Entry Coordinator Name Role [facility] MARIANNE ., DR LAMB Consulting Unavailable MARIANNE ., DR LAMB Attending Unavailable MARIANNE ., DR LAMB Admitting Unavailable [facility] Unavailable MARIANNE ., DR LAMB Admitting Unavailable MARIANNE ., DR LAMB Consulting Unavailable MARIANNE ., DR LAMB Attending Unavailable IZAIAH RAYGOZA Consulting Unavailable AGNES ARANDA Consulting Unavailable MARIANNE ., DR LAMB Admitting Unavailable [facility] Unavailable MARIANNE ., DR LAMB Consulting Unavailable MARIANNE ., DR LAMB Attending Unavailable CONCHA HERNANDEZ Consulting Unavailable CHRISTEL GONZALEZ Consulting Unavailable Zainab Lopes Attending Provider [phone] [facility] Unavailable Zainab Lopes Attending Unavailable Zainab Lopes Admitting Unavailable MARY SANTANA Attending Unavailable MARY SANTANA Attending Unavailable MARY SANTANA Attending Unavailable ZAINAB LOPES Attending Unavailable MARY SANTANA Attending Unavailable ZAINAB LOPES Attending Unavailable Flor VALENCIA [facility] Provider Medications Current Medications Medication Drug Class(es) Dates Sig (Normalized) Sig (Original) Ethinyl Estradiol / Ferrous fumarate / Norethindrone (1 source) Estrogen Start: 07-21-2023 End: 07-20-2024 norethindrone-ethi nyl estradiol (07/02) 1-20 MG-MCG tablet Indications: 6 weeks follow-up Take 1 tablet by mouth in the morning. 28 tablet 11 07/21/2023 07/20/2024 Active Completed/Discontinued Medications Medication Drug Class(es) Dates Sig (Normalized) Sig (Original) multivitamin () 27-0.8 MG tablet (1 source) End: 07-21-2023 multivitamin () 27-0.8 MG tablet 1 (one) time each day at the same time. 0 07/21/2023 Discontinued (Other) Problems Problem Classification Problem Date Documented Da [...] Translations: [POLYCYSTIC OVARIAN SYNDROME] Onset: 07-23-2022 Chronic Other and delivery including normal (1 source) care status; Translations: [Encounter for routine follow-up] 07-15-2023 Episodic Ovarian cyst (1 source) Unspecified ovarian cyst, right side; Translations: [UNSPECIFIED OVARIAN CYST RIGHT SIDE] Onset: 08-12-2022 Episodic Substance-related disorders (1 source) Nicotine dependence, other tobacco product, uncomplicated; Translations: [NICOTINE DEPEND OTH TOB PROD UNCOMP] Onset: 07-23-2022 Chronic Results Test Name Value Interpretation Reference Range Facil ity Fibrinogenon 04-25-2023 Fibrinogen 395 mg/dL High 200-393 [facility] Comment on above: Result Comment: A he matocrit value greater than 55% may lead to inaccurate results in coagulation testing. Patients having hematocrit values >55% require a special collection tube for coagulation studies. Please contact the laboratory at [phone] for redraw instructions. PERFORMED BY: [address] [address] PATHOLOGIST RECYCLING ATTENDANT PHAM SUAREZ M.D. Performed By: #### F IB-C #### [address] [address] [facility] Fibrinogen [Mass/volume] in Platelet poor plasma by Coagulation assayOrdered By: Zainab Lopes on 04-25-2023 Fibrinogen Coag (PPP) [Mass/Vol] 395 mg/dL 200-393 [facility] Comment on above: A hematocrit value g reater than 55% may lead to inaccurate results in coagulation testing. Patients having hematocrit values >55% require a special collection tube for coagulation studies. Please contact the laboratory at [phone] for redraw instructions. PREG QUANT HCGon 10-20-2022 HCG QUANT 8286 mIU/mL Normal [facility] Comment on above: Performed By: #### P REGQNT #### [facility] [address] [place] [address] Dr. Nicole Roberts HCG RANGE SEE BELOW Normal [facility] Comment on above: Result Comment: 5-50 0.2-1 WEEK 50-500 1-2 WEEKS 100-5,000 2-3 WEEKS 500-10,000 3-4 WEEKS 1,000-50,000 4-5 WEEKS 10,000-100,000 5-6 WEEKS 15,000-200,000 6-8 WEEKS 10,000-100,000 2-3 MONTHS Performed By: #### P REGQNT #### [facility] [address] [place] [address] Dr. Nicole Roberts PREG QUANT HCGon 10-18-2022 HCG QUANT 4656 mIU/mL Normal [facility] Comment on above: Performed By: #### P REGQNT #### [facility] [address] [place] [address] Dr. Nicole Roberts HCG RANGE SEE BELOW Normal [facility] Comment on above: Result Comment: 5-50 0.2-1 WEEK 50-500 1-2 WEEKS 100-5,000 2-3 WEEKS 500-10,000 3-4 WEEKS 1,000-50,000 4-5 WEEKS 10,000-100,000 5-6 WEEKS 15,000-200,000 6-8 WEEKS 10,000-100,000 2-3 MONTHS Performed By: #### P REGQNT #### [facility] [address] [place] [address] Dr. Nicole Roberts CBC AUTO DIFFon 07-23-2022 BASO # 0.1 103/ul Normal 0.0-0.1 [facility] Comment on above: Performed By: #### C BC #### [facility] [address] [place] [address] Dr. Nicole Roberts Basophils/100 WBC (Bld) 0.7 % Normal 0.2-2.0 [facility] Comment on above: Performed By: #### C BC #### [facility] [address] [place] [address] Dr. Nicole Roberts EO # 0.1 103/ul Normal 0.0-0.7 [facility] Comment on above: Performed By: #### C BC #### [facility] [address] [place] [address] Dr. Nicole Roberts Eosinophils/100 WBC (Bld) 1.1 % Normal 0.9-7.0 [facility] Comment on above: Performed By: #### C BC #### [facility] [address] [place] [address] Dr. Nicole Roberts Erythrocyte distribution width (RBC) [Ratio] 14.6 % Normal 11.0-15.0 [facility] Comment on above: Performed By: #### C BC #### [facility] [address] [place] [address] Dr. Nicole Roberts Hematocrit (Bld) [Volume fraction] 37.7 % Normal 36.0-48.0 [facility] Comment on above: Performed By: #### C BC #### [facility] [address] [place] [address] Dr. Nicole Roberts Hemoglobin (Bld) [Mass/Vol] 12.2 g/dL Normal 12.0-16.0 [facility] Comment on above: Performed By: #### C BC #### [facility] [address] [place] [address] Dr. Nicole Roberts IG # 0.02 10e3/ul Normal 0.00-0.03 [facility] Comment on above: Performed By: #### C BC #### [facility] [address] [place] [address] Dr. Nicole Roberts IG % 0.3 % Normal 0.0-0.5 [facility] Comment on above: Performed By: #### C BC #### [facility] [address] [address] [address] Nicole Roberts LYMPH # 2.2 103/ul Normal 1.2-3.8 [facility] Comment on above: Performed By: #### C BC #### [facility] [address] [address] [address] Nicole Roberts Lymphocytes/100 WBC (Bld) 30.8 % Normal 20.5-60.0 [facility] Comment on above: Performed By: #### C BC #### [facility] [address] [place] [address] Dr. Nicole Roberts MANUAL DIFF REQ NO Normal [facility] Comment on above: Performed By: #### C BC #### [facility] [address] [place] [address] Dr. Nicole Roberts MCH (RBC) [Entitic mass] 25.4 pg Critically low 26.7-34.0 [facility] Comment on above: Performed By: #### C BC #### [facility] [address] [place] [address] Dr. Nicole Roberts MCHC (RBC) [Mass/Vol] 32.4 g/dL Normal 29.9-35.2 [facility] Comment on above: Performed By: #### C BC #### [facility] [address] [place] [address] Dr. Nicole Roberts MCV (RBC) [Entitic vol] 78.4 fL Critically low 81.0-99.0 [facility] Comment on above: Performed By: #### C BC #### [facility] [address] [place] [address] Dr. Nicole Roberts MONO # 0.6 103/ul Normal 0.3-0.8 [facility] Comment on above: Performed By: #### C BC #### [facility] [address] [place] [address] Dr. Nicole Roberts Monocytes/100 WBC (Bld) 8.2 % Normal 1.7-12.0 [facility] Comment on above: Performed By: #### C BC #### [facility] [address] [address] [address] Nicole Roberts NEUT # 4.2 103/ul Normal 1.4-6.5 [facility] Comment on above: Performed By: #### C BC #### [facility] [address] [place] [address] Dr. Nicole Roberts Neutrophils/100 WBC (Bld) 58.9 % Normal 43.0-75.0 [facility] Comment on above: Performed By: #### C BC #### [facility] [address] [place] [address] Dr. Nicole Roberts Platelet mean volume (Bld) [Entitic vol] 9.5 fL Normal 9.5-13.5 [facility] Comment on above: Performed By: #### C BC #### [facility] [address] [place] [address] Dr. Nicole Roberts PLT 294 103/ul Normal 150-450 [facility] Comment on above: Performed By: #### C BC #### [facility] [address] [place] [address] Dr. Nicole Roberts RBC 4.81 106/ul Normal 4.20-5.40 [facility] Comment on above: Performed By: #### C BC #### [facility] [address] [place] [address] Dr. Nicole Roberts WBC 7.1 103/ul Normal 4.0-11.0 [facility] Comment on above: Performed By: #### C BC #### [facility] [address] [place] [address] Dr. Nicole Roberts PREG QUANT HCGon 07-23-2022 HCG QUANT <1 Normal [facility] Comment on above: Performed By: #### P REGQNT #### [facility] [address] [place] [address] Dr. Nicole Roberts HCG RANGE SEE BELOW Normal [facility] Comment on above: Result Comment: 5-50 0.2-1 WEEK 50-500 1-2 WEEKS 100-5,000 2-3 WEEKS 500-10,000 3-4 WEEKS 1,000-50,000 4-5 WEEKS 10,000-100,000 5-6 WEEKS 15,000-200,000 6-8 WEEKS 10,000-100,000 2-3 MONTHS Performed By: #### P REGQNT #### [facility] [address] [place] [address] Dr. Nicole Roberts Vital Signs Date Time Vital Sign Value Performing Clinician Faci lity 07-21-2023 13:39-0500 Body mass index (BMI) [Ratio] 41.61 kg/m2 Mary FRIEDMAN Work Phone: [facility] 07-21-2023 13:39-0500 Body weight 116.94 kg Mary FRIEDMAN Work Phone: [facility] 07-21-2023 13:39-0500 Diastolic blood pressure 80 mm[Hg] Mary FRIEDMAN Work Phone: [facility] 07-21-2023 13:39-0500 Systolic blood pressure 126 mm[Hg] Mary FRIEDMAN Work Phone: [facility] Encounters Encounter Date Encounter Type Care Provider Facility Start: 07-21-2023 End: 07-21-2023 ambulatory MARY MAX Not Available Start: 07-21-2023 End: 07-21-2023 care visit Mary FRIEDMAN Work Phone: [facility] Comment on above: 6 weeks f ollow-up Start: 06-16-2023 End: 06-16-2023 ambulatory MARY MAX Not Available Start: 06-02-2023 End: 06-02-2023 ambulatory ZAINAB MARIANNE Not Available Start: 05-26-2023 End: 05-26-2023 ambulatory MARY MAX Not Available Start: 05-19-2023 End: 05-19-2023 ambulatory ZAINAB MARIANNE Not Available Start: 05-03-2023 End: 05-03-2023 ambulatory MARY MAX Not Available Start: 04-25-2023 End: 04-25-2023 ambulatory Natalie Kingstons Facility:[facility] Start: 04-25-2023 End: 04-25-2023 ambulatory Zainab Marianne Work Phone: [facility] Work Phone: Start: 04-25-2023 End: 04-25-2023 Departed Referred Zainab Lopes Work Phone: [facility] [place] Work Phone: Start: 10-18-2022 ambulatory [facility] Facility: H1 Start: 07-23-2022 Encounter for preprocedural cardiovascular examination DR ZAINAB LOPES . [facility] Start: 07-23-2022 End: 07-23-[address] ZAINAB LOPES . Facility:H1 Start: 07-21-2022 End: 07-22-2022 ambulatory [facility] Facility:H1 Start: 07-21-2022 End: 07-22-2022 Encounter for preprocedural cardiovascular examination [facility] Facility:H1 Plan of Treatment Date Care Activity Detail Author Start: 02-01-2024 End: 02-01-2024 Patient encounter procedure 02/01/2024 2:00 PM EDT Office Visit [facility] [address] [place] [address] Zainab Lopes, [address] [place] [address] [facility] Payers Date Payer Category Payer Self-pay 2023 Unknown [id number] 2022 Medicaid [id number] 2022 Medicaid [employer] [place] [employer] [place] [id number] 2022-Present [address] [address] [place] [address] [id number] 2022 Unknown [employer] [id number] 2022-Present [phone] [address] [place] [address] [id number] 2001 Unknown [id number] 2001 Unknown [id number] [id number] 2001 Unknown [id number] 2001 Unknown [id number] 2001 Unknown [id number] 2001 Unknown [id number] [id number] 2001 Unknown [id number] [id number] 2001 Unknown [id number] [id number] 2001 Unknown [id number] [id number] 1959 Unknown [id number] Unknown [id number] Social History Date Type Detail Facility Tobacco smoking status TXIS Unknown if ever smoked [facility] Work Phone: Start: 2000 Sex Assigned At Female F [facility] Start: 11-03-2022 Tobacco smoking status [facility] Tobacco smoking consumption unknown [facility] Start: 2000 Sex Assigned At Not on file [facility] Gender identity Not on file [facility] are History of Present illness Narrative 07-21-2023 ELDER Faye - 07/21/2023 1:30 PM EST Note Date & Type Note Facility 07-21-2023 History of Presen t illness Narrative Reason for Appointment: Patient ID: Alison Marquis is a 23 y.o. female who presents for Care Patient presents today for Post Follow Up appointment. Current Medications: has a current medication list which includes the following prescription(s): norethindrone-ethinyl estradiol. Medical History: Active Ambulatory Problems Diagnosis Date Noted No Active Ambulatory Problems Resolved Ambulatory Problems Diagnosis Date Noted No Resolved Ambulatory Problems Past Medical History: Diagnosis Date H/O miscarriage, currently PCOS (polycystic ovarian syndrome) Family History Problem Relation Name Age of Onset Hypertension Mother No Known Problems Father No Known Problems Sister Hypertension Brother Diabetes type I Brother Social History Tobacco Use Smoking status: Not on file Smokeless tobacco: Not on file Substance Use Topics Alcohol use: Not on file Drug use: Not on file Past Surgical History: Procedure Laterality Date PELVIC LAPAROSCOPY diagnostic laparoscopy with right ovarian cystotomy No Known Allergies Review of Systems: Review of Systems Constitutional: Negative. HENT: Negative. Eyes: Negative. Respiratory: Negative. Cardiovascular: Negative. Gastrointestinal: Negative. Genitourinary: Negative. Musculoskeletal: Negative. Skin: Negative. Neurological: Negative. All other systems reviewed and are negative. Hematological: Negative. Endocrine: Negative. Allergic/Immunologic: Negative. Objective Physical Exam Constitutional: Appearance: Normal appearance. She is normal weight. HENT: Head: Normocephalic. Cardiovascular: Rate and Rhythm: Normal rate. Pulses: Normal pulses. Pulmonary: Effort: Pulmonary effort is normal. Breath sounds: Normal breath sounds. Abdominal: Palpations: Abdomen is soft. Comments: Small amount of drainage, serous from umbilical incision Musculoskeletal: General: Normal range of motion. Neurological: General: No focal deficit present. Mental Status: She is alert and oriented to person, place, and time. Psychiatric: Mood and Affect: Mood normal. Behavior: Behavior normal. Thought Content: Thought content normal. Judgment: Judgment normal. Vitals and nursing note reviewed. Vitals: Estimated body mass index is 41.61 kg/m as calculated from the following: Height as of 10/18/22: 5' 6 . Weight as of this encounter: 257 lb 12.8 oz. BP: 126/80 No LMP recorded. Assessment/Plan Encounter Diagnosis Name Primary? 6 weeks follow-up Patient is doing well but has complaints of .... Patient presents today for 6 week visit. Patient is s/p delivery. Patient states depression but denies suicidal and homicidal ideations. All options were discussed with the patient regarding control and patient desires oral contraception . Follow Up: Patient is to return for annual unless needed otherwise. Documented by ELDER Faye on behalf of: ELDER Faye documented in this encounter [facility] Clinical Note 07-23-2022 Note Date & Type Note Facility 07-23-2022 Note OPERATIVE NOTE OPERATION DATE: 07/23/2022 PROCEDURE: Diagnostic laparoscopy with right ovarian cystotomy using monopolar scissors with chromopertubation. PREOPERATIVE DIAGNOSIS: Pelvic pain, right ovarian cyst, dysmenorrhea. POSTOPERATIVE DIAGNOSIS: Pelvic pain, right ovarian cyst, dysmenorrhea, including posterior endometriosis posterior cul-de-sac. ANESTHESIA: General. SURGEON: Zainab Lopes D.O. GLOBAL CMO: MIKEY Garcia URINE OUTPUT: Yellow and clear. [...] to Recovery Room in stable condition. [facility] Clinical Note 07-21-2022 Note Date [...] by: AGNES ARANDA Date: 2022-07-21 14:22 [facility] Evaluation note Note Date & Type Note Facility Evaluation note No assessment information availa [facility] Work Phone: Evaluation note Note Date & Type Note Facility Evaluation note Diagnosis 6 weeks follow-up documented in this encounter [facility] Summary Purpose Family History No Family History Records FoundNo Family History Records FoundNo Family History Records Found Advance Directives No Advanced Directives Records FoundNo Advanced Directives Records FoundNo Advanced Directives Records Found Additional Source Comments INFORMATION SOURCE (unrecogn ized section and content) DATE CREATED AUTHOR 10/21/2022 [facility] DATE CREATED AUTHOR AUTHOR'S ORGANIZ ATION 05/14/2023 [facility] DATE CREATED AUTHOR AUTHOR'S ORGANIZ ATION 07/22/2023 [facility] EPIC Care Teams (unrecognized sec tion and content) Team Status: Inactive Member Role Status Dates Zainab Lopes Attending Provider Active Data Entry Coordinator Relationship Specialty Start Date End Date Natalie Ray MD [address] [place] [address] PCP - General Pediatrics 11/04/22 Goals (unrecognized section and content) Goals may be documented in a n alternate section Reason for Visit (unrecogniz ed section and content) Reason Comments Care FOR RECORDS PERTAINING TO PATIENTS WHO ARE [...] BE BASED ON THE PRIMARY CLINICAL RECORDS. [facility] [employer] [facility]. provides no warranty or guarantee of the accuracy or completeness of information in this document.
[2024-02-07 15:10] LABS: Age Gdln ACOG Testing Note (.); IGP, rfx Aptima HPV ASCU Note (.)
== END 2024-02-01 19:25 | disposition home or self-care (01) ==
LOC: LAB 19:24
PROVIDERS: Visit Provider Obstetrics & Gynecology
DX: Z01.419 Encounter for gynecological examination (general) (routine) without abnormal findings (principal)
CPT/HCPCS: 88175

== ENCOUNTER 2025-05-17 16:30 | Emergency (ER) | payer OTHER, MEDICAID, SELFPAY ==
--- OUTSIDE RECORDS SUMMARY | 2025-05-14 04:56 | XMS_ITS | Continuity of Care Document ---
Author Organization [facility] Address [address] [place] [address] Phone Care Team Providers Care Icer Air Conditioning Name Role Phone Natalie Ray MD Primary Care Provider Mel Owens APRN Attending Provider Care Teams Patient Care Team Team Status: Active Member Role/Relationship Status Dates Natalie Ray MD Primary Care Provider Active Patient Care Team Team Status: Inactive Member Role/Relationship Status Dates Natalie Ray MD Primary Care Provider Active Start: May 14, 2025 End: May 14, 2025Dipti Sequeira ProviderActiveStart: May 14, 2025 End: May 14, 2025 Chief Complaint and Reason for Visit Chief Complaint Admit Date sore throat May 14, 2025 9 :24am Allergies, Adverse Reactions, Alerts Allergen Type Severity Reaction Last Updated Verified Status No Known Allergies Allergy Unknown May 14, 2025 9:24amYesActive Social History Smoking Status Unknown if ever smoked Observation Status Observation Response Date of Response Legal Sex [facility] (finding) [facility] 2000 Medications No known medications Vital Signs Vital Reading Result Reference Range Collection Date/Time Height 66 [in_i] May 14, 2025 9:80khQzkjzh175.02 kgDecember 2024 9:25amBody Moaxavisjzx52.3 [degF]97.6-99.0December 2024 9:25amHeart Rate96 /gdi31-624 May 14, 2025 9:25amRespiratory rate16 /dua50-13Tdoojtjb 2nd, 2025 9:25am Oxygen saturation by Pulse sskzmpse58 %95-100May 14, 2025 9:25amBP Ensmmjsy622 mm[Hg]100-140May 14, 2025 9:25amBP Qskrriayu29 mm[Hg]60-100 May 14, 2025 9:25amBMI (Body Mass Index)41.6 kg/h4Idjrcten2024 9:25am Advance Directives Advance Directive Response Recorded Date/ Time Advance Directives No April 9:27am Insurance Providers Guarantor Alison Marquis Address [address] [place] [address]Qznkksx Info.Home Phone: Coverage Status Update:2025 Payer Group Member ID Coverage Type Subscriber Relationship to Subscriber Effective Date Expiration Date [facility] Medicaid [id number] J Fouke Id: [id number] [address] [facility] [address] Home Phone: [facility] box [address] [place] [address] Work Phone: Id: [id number] J Fouke Id: [id number] [address] [facility] [address] [facility] Phone: [facility]000562629Elke Marquis Id: [id number] [address] [facility] [address] Home Phone: self Encounters Encounter Location(s) Arrival/Admit Date Discharge/Departure Date Discharge/Departure Disposition Provider(s) Departed Physician/ Provider Office [facility] -[facility] [place] May 14, 2025 9:24am May 14, 2025 9:46am Discharged to home care or self care (routine discharge) 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
[2025-05-17 16:34] VITALS: BP 161/94; PULSE 109; TEMP 36.9; O2SAT 98; BMI 40.4
--- NOTE | 2025-05-17 17:27 | ED.GENADUL1 ---
HPI HPI - General Adult General Chief complaint: Recheck/Abnormal Lab/Rx Stated complaint: Sore Throat Time Seen by Provider: 05/17/25 16:48 Source: patient Mode of arrival: walk-in History of Present Illness HPI narrative: Patient is a 24-year-old female that presents to the emergency department with complaints of 1 week of sore throat and swollen tonsils. She denies any fever but states she started develop some tonsillar exudates. She denies any cough and does have anterior neck tenderness. She did go to urgent care Tuesday and her rapid strep there was negative. Related Data Previous Rx's ?Medication ?Instructions ?Recorded amoxicillin 500 mg tablet 500 mg PO TID 10 days #30 tabs 05/17/25 Allergies Allergy/AdvReac Type Severity Reaction Status Date / Time No Known Drug Allergies Allergy Verified 06/02/23 15:38 Opioid HPI Opioid Management Most Recent Opioid Data: Last Pain Scale 1 06/10/23, 16:03 Last ED Pain Assessment 05/17/25, 16:48 Ur Phencyclidine Scrn, (NEGATIVE) Negative 06/07/23, 22:02 Review of Systems ROS Status of ROS 10 or more systems reviewed and unremarkable except as noted in history and below PFSH PFS Medical History (Updated 05/17/25 @ 17:39 by ELDER Alberts) Mild preeclampsia ?O14.00 - Mild to moderate pre-eclampsia, unspecified trimester (ICD-10) Surgical History (Updated 06/11/23 @ 00:00 by ) S/P ?Z98.891 - History of uterine scar from previous surgery (ICD-10) Social History Little interest or pleasure in doing things: not at all Feeling down, depressed, or hopeless: not at all Exam Narrative Exam Narrative: General: No distress, age-appropriate Skin: Warm, dry, no pallor. No rash. Head: Normocephalic, atraumatic. Neck: Supple, tender cervical LAD bilaterally. Eye: Pupils are equal, round and EOMI. No scleral icterus. Ears, Nose, Mouth, and Throat: No nasal mucosal hypertrophy. Oral mucosa is moist, posterior oropharynx erythema, uvula is mid-line, tonsils swollen but not touching, with tonsillar exudates bilaterally. Cardiovascular: Regular Rate and Rhythm without murmur, gallop or rub. Respiratory: No accessory muscle use or respiratory distress. Lungs are clear to auscultation, no wheezing, rales or rhonchi Chest Wall: no tenderness Musculoskeletal: Full ROM of all extremities, no calf or popliteal tenderness Neurological: A&O x4. No cranial nerve dysfunction observed. No truncal ataxia. Moves all extremities. Sensation intact. Psychiatric: Cooperative and interactive. Normal mood and affect. Constitutional Vital Signs, click to edit/add: Last Vital Signs Temp 98.4 F 05/17/25 16:34 Pulse 96 H 05/17/25 17:52 Resp 16 05/17/25 17:52 BP 142/89 H 05/17/25 17:52 Pulse Ox 100 05/17/25 17:52 O2 Del Method Room Air 05/17/25 17:52 Documenting provider has reviewed patient's vital signs: yes Course Vital Signs Vital signs: Vital Signs Temperature 98.4 F 05/17/25 16:34 Pulse Rate 109 H 05/17/25 16:34 Respiratory Rate 18 05/17/25 16:34 Blood Pressure 161/94 H 05/17/25 16:34 Pulse Oximetry 98 05/17/25 16:34 Oxygen Delivery Method Room Air 05/17/25 16:34 Temperature 98.4 F 05/17/25 16:34 Pulse Rate 96 H 05/17/25 17:52 Respiratory Rate 16 05/17/25 17:52 Blood Pressure 142/89 H 05/17/25 17:52 Pulse Oximetry 100 05/17/25 17:52 Oxygen Delivery Method Room Air 05/17/25 17:52 Medical Decision Making [facility] Narrative Medical decision making narrative: The patient is a 24-year-old female presenting with a 1-week history of sore throat and swollen tonsils, accompanied by tonsillar exudates. She denies fever and cough but reports anterior neck tenderness and bilateral tonsillar exudates. On examination, the patient?s posterior oropharynx is erythematous with tonsils swollen but not touching with tonsillar exudates. Cervical lymphadenopathy (LAD) is noted, but the uvula is midline. Rapid strep tests performed at both urgent care and in the ED were negative. Given the clinical presentation, including the sore throat, tonsillar exudates, anterior cervical tenderness, and lymphadenopathy, a high suspicion for streptococcal pharyngitis remains. Despite the negative rapid strep tests, the patient was prescribed Amoxicillin 500 mg TID for 10 days due to the strong clinical likelihood of group A streptococcal infection. She was given the first dose in the ER and advised to follow up with her primary care provider (PCP) for close follow-up to ensure symptom resolution and assess for any progression. Differential Diagnosis Differential Diagnosis: Strep pharyngitis, Viral pharyngitis, tonsillitis Lab Data Lab results reviewed: Yes I reviewed the patient's lab results Labs: Lab Results 05/17/25 Range/Units 16:40 Streptococcus Screen Negative Discharge Plan Discharge Chief Complaint: Recheck/Abnormal Lab/Rx Clinical Impression: Strep pharyngitis Patient Disposition: Home, Self-Care Time of Disposition Decision: 17:36 Condition: Good Mode of Transportation: Private Vehicle Prescriptions / Home Meds: New amoxicillin 500 mg tablet 500 mg PO TID 10 Days Qty: 30 0RF Print Language: Swedish Instructions: Strep Throat (ED) Referrals: Natalie Ray [Primary Care Provider] - 1 week Discharge Date/Time: 05/17/25 17:55
--- OUTSIDE RECORDS SUMMARY | 2025-05-17 17:27 | XMS_ITS | CCD ---
Author Organization [facility] Care Team Providers Care Slusher Operator Name Role Phone NATALIE RAY Primary Care Unavailable MARIANNE ., DR LAMB Consulting Unavailable MARIANNE ., DR LAMB Attending Unavailable MARIANNE ., DR LAMB Admitting Unavailable [facility] Unavailable MARIANNE ., DR LAMB Admitting Unavailable MARIANNE ., DR LAMB Consulting Unavailable MARIANNE ., DR LAMB Attending Unavailable IZAIAH RAYGOZA Consulting Unavailable AGNES ARANDA Consulting Unavailable MARIANNE ., DR LAMB Admitting Unavailable [facility] Unavailable MARIANNE ., DR LAMB Consulting Unavailable MARIANNE ., DR LAMB Attending Unavailable CONCHA HERNANDEZ Consulting Unavailable CHRISTEL GOZNALEZ Consulting Unavailable Zainab Lopes Attending Provider [phone] Natalie Ray [facility] Unavailable Zainab Lopes Attending Unavailable Zainab Lopes Admitting Unavailable Natalie Ray MD [facility] Provider MARY SANTANA Attending Unavailable MARY SANTANA Attending Unavailable MARY SANTANA Attending Unavailable ZAINAB LOPES Attending Unavailable ZAINAB LOPES Attending Unavailable MARY SANTANA Attending Unavailable ZAINAB LOPES Attending Unavailable Flor VALENCIA [facility] Provider [phone] Medications Current Medications MedicationDrug Class(es)DatesSig (Normalized)Sig (Original)desogestrel 0.15 mg / ethinyl estradiol 0.03 mg oral tablet (3 sources)Progestin, EstrogenStart: 02-01-2024 End: 82-89-6548ybebfhxdgnc-ethinyl estradiol (Apri) 0.15-30 MG-MCG tablet Indications: Abnormal uterine bleeding (AUB) Take 1 tablet by mouth Daily 28 tablet 12 02/01/2024 01/31/2025 Active Completed/Discontinued Medications MedicationDrug Class(es)DatesSig (Normalized)Sig (Original)Ethinyl Estradiol / Ferrous fumarate / Norethindrone (4 sources)EstrogenStart: 07-21-2023 End: 30-36-0199otprvbbgazhfw-ethinyl estradiol (07/02) 1-20 MG-MCG tablet Indications: 6 weeks follow-up Take 1 tablet by mouth in the morning. 28 tablet 11 07/21/2023 02/01/2024 Discontinued (Ineffective)Start: 07-21-2023 End: 67-17-7022qiyzsqpopljlp-ethinyl estradiol (07/02) 1-20 MG-MCG tablet Indications: 6 weeks follow-up Take 1 tablet by mouth in the morning. 28 tablet 11 07/21/2023 07/20/2024 Activemultivitamin () 27-0.8 MG tablet (2 sources) End: 84-98-5943qvnbdhgfytjh () 27-0.8 MG tablet 1 (one) time each day at the same time. 07/21/2023 Discontinued (Other) End: 23-95-9823hrtccliaanxo () 27-0.8 MG tablet 1 (one) time each day at the same time. 0 07/21/2023 Discontinued (Other)Progesterone 200 MG suppository (1 source)Start: 10-12-2022 End: 42-09-3742Cpjtbohmpqlg 200 MG suppository as directed Vaginal at bedtime for 30 days 10/12/2022 12/29/2022 Discontinued (Therapy completed) Problems Problem ClassificationProblemDateDocumented DateEpisodic/ChronicAbdominal pain (5 sources)Pelvic and perineal pain; Translations: [PELVIC AND PERINEAL PAIN] Onset: 02-07-2514JcvhmtkpNuhszwbhw disorders (1 source)Dysmenorrhea, unspecified; Translations: [DYSMENORRHEA UNSPECIFIED] Onset: 32-41-9430FebdmlcIjaiw complications of (1 source)Maternal care for excessive growth, unspecified trimester, not applicable or unspecified; Translations: [Maternal care for excessive growth, unspecified trimester, not applicable or unspecified]Onset: 04-25-2023 EpisodicOther endocrine disorders (1 source)Polycystic ovarian syndrome; Translations: [POLYCYSTIC OVARIAN SYNDROME]Onset: 32-80-7069UfsktcmWxinm female genital disorders (2 sources)Abnormal uterine bleeding; Translations: [Abnormal uterine and vaginal bleeding, unspecified]93-28-9746DapynzlTayfm and delivery including normal (1 source) care status; Translations: [Encounter for routine follow-up]55-78-9669HglryaneFremkcc cyst (1 source)Unspecified ovarian cyst, right side; Translations: [UNSPECIFIED OVARIAN CYST RIGHT SIDE]Onset: 12-73-7619SyiongknGyxgrfban-related disorders (1 source)Nicotine dependence, other tobacco product, uncomplicated; Translations: [NICOTINE DEPEND OTH TOB PROD UNCOMP]Onset: 59-58-3244Ygoswmd Results Test NameValueInterpretationReference RangeFacilityIGP,APTIMA HPV,AGE GDLNon 89-65-8951RVV GDLN ACOG TESTINGNote.NOMS HealthcareComment on above:TESTS RESULT FLAG UNITS REF RANGE LAB Clinician Provided Cytology Information Source.............Cervix;Endocervix No. of containers..01 ThinPrep Vial Age Algo ACOG Alejandrina... FLAG LEGEND: L-Low Normal,H-High Normal,LL-Alert Low,HH-Alert High <-Panic Low,>-Panic High,A-Abnormal,AA-Critical Abnormal Performed at: 01 =G [facility] [place] [address] [facility] [place] [address] Natasha Chin MD, IGP, RFX APTIMA HPV ASCUNote.NOMS HealthcareComment on above:TESTS RESULT FLAG UNITS REF RANGE LAB DIAGNOSIS: 02 NEGATIVE FOR INTRAEPITHELIAL LESION OR MALIGNANCY. THIS SPECIMEN WAS RESCREENED PART OF OUR RUBBER WORKER PROGRAM. Specimen adequacy: 02 Satisfactory for evaluation. Endocervical and/or squamous metaplastic cells (endocervical component) are present. Performed by: 03 Millicent Calderón, Ring Cutter Lathe Operator ([facility]) QC reviewed by: 02 Liz Watkins, Ring Cutter Lathe Operator . 02 Note: Note 02 The Pap smear is a screening test designed to aid in the detection of premalignant and malignant conditions of the uterine cervix. It is not a diagnostic procedure and should not be used as the sole means of detecting cervical cancer. Both false-positive and false-negative reports do occur. Test Methodology: Note 02 This liquid based ThinPrep(R) pap test was screened with the use of an image guided system. . 02 The HPV DNA reflex criteria were not met with this specimen result therefore, no HPV testing was performed. FLAG LEGEND: L-Low Normal,H-High Normal,LL-Alert Low,HH-Alert High <-Panic Low,>-Panic High,A-Abnormal,AA-Critical Abnormal Performed at: 02 WB [facility] [address] [place] [address] Natasha Chin MD, 03 LAMBERT [facility] [address] [address] Ktai Maynard PhD, Performed at: =G - [facility] [address] [id number] Sandblast Carver: Natasha Chin MD, Phone: [phone] Performed at: WB - [facility] [address], [place] [id number] Sandblast Carver: Natasha Chin MD, Phone: [phone] BRUSH-SPATULA CERVIX ENDOCERVIX CLINISYNCNOMS HealthcareUS OB BPP W NON-STRESSon 37-76-5768Ecq[place] [address] Ultrasound Report Signed Patient: ALISON MARQUIS MR#: [id number] : 2000 Acct:[id number] Age/Sex: 22 / F ADM Date: 06/07/23 Loc: US Attending Dr: Zainab Lopes D.O. Ordering Physician: Zainab Lopes D.O. Date of Service: 06/07/23 Procedure(s): US OB BPP w non-stress Accession Number(s): [id number] cc: Zainab Lopes D.O.; Natalie Ray [place] [phone] Patient Name: ALISON MARQUIS MRN: [id number] date: 2000 Sex: F Assigned Patient Location: [facility] Current Patient Location: Accession/Order Number: [id number] Exam Date: 06/07/2023 15:10 Report Date: 06/07/2023 21:43 At the request of: ZAINAB LOPES Procedure: US OB BPP w non-stress EXAMINATION: US OB BPP w non-stress HISTORY: EXCESSIVE GROWTH AFFECTING O36.63X1 COMPARISON: Ultrasound OB biophysical 05/30/2023 TECHNIQUE: Ultrasound biophysical profile was performed in the radiology department. BREATHING MOVEMENTS: 2.0 GROSS BODY MOVEMENTS: 2.0 TONE: 2.0 QUALITATIVE AMNIOTIC FLUID VOLUME: 2.0 PRESENTATION: CEPHALIC HEART RATE: 144.4 bpm bpm. AMNIOTIC FLUID VOLUME: 14.4 cm GESTATIONAL AGE: 37 weeks 6 days CONCLUSION: Total biophysical profile score 8.0. Electronically authenticated by: DYLAN MATTHEWS Date: 06/07/2023 21:43 Dictated By: Dylan Matthews M.D. Signed By: 06/07/232145 DD/ 42 TD/TT: Piece Dyeing Machine Tender:MOSHEHRadiology, Radiologist, - 08/17/2023 [place] [address] Ultrasound Report Signed Patient: ALISON MARQUIS MR#: [id number] : 2000 Acct:[id number] Age/Sex: 22 / F ADM Date: 06/07/23 Loc: US Attending Dr: Zainab Lopes D.O. Ordering Physician: Zainab Lopes D.O. Date of Service: 06/07/23 Procedure(s): US OB BPP w non-stress Accession Number(s): [id number] cc: Zainab Lopes D.O.; Natalie Ray [place] [address] Patient Name: ALISON MARQUIS MRN: [facility]:[id number] date: 2000 Sex: F Assigned Patient Location: [facility] Current Patient Location: Accession/Order Number: [id number] Exam Date: 06/07/2023 15:10 Report Date: 06/07/2023 21:43 At the request of: ZAINAB LOPES Procedure: US OB BPP w non-stress EXAMINATION: US OB BPP w non-stress HISTORY: EXCESSIVE GROWTH AFFECTING O36.63X1 COMPARISON: Ultrasound OB biophysical 05/30/2023 TECHNIQUE: Ultrasound biophysical profile was performed in the radiology department. BREATHING MOVEMENTS: 2.0 GROSS BODY MOVEMENTS: 2.0 TONE: 2.0 QUALITATIVE AMNIOTIC FLUID VOLUME: 2.0 PRESENTATION: CEPHALIC HEART RATE: 144.4 bpm bpm. AMNIOTIC FLUID VOLUME: 14.4 cm GESTATIONAL AGE: 37 weeks 6 days CONCLUSION: Total biophysical profile score 8.0. Electronically authenticated by: DYLAN MATTHEWS Date: 06/07/2023 21:43 Dictated By: Dylan Matthews M.D. Signed By: 06/07/232145 DD/ 42 TD/TT: Piece Dyeing Machine Tender: [facility] MEMORIAL HOSPITALZeinab HealthcareRadiology Study observation (narrative)NOMS HealthcareUS OB BPP W NON-STRESSOrdered By: Radiologist Radiology on 27-07-6044EXLQ [facility] Work Phone: US OB BPP W NON-STRESSon [phone], [place] [address] Ultrasound Report Signed Patient: ALISON MARQUIS MR#: [id number] : 2000 Acct:[id number] Age/Sex: 22 / F ADM Date: 05/30/23 Loc: US Attending Dr: Zainab Lopes D.O. Ordering Physician: Zainab Lopes D.O. Date of Service: 05/30/23 Procedure(s): US OB BPP w non-stress Accession Number(s): [id number] cc: Zainab Lopes D.O.; Natalie Ray [place] [address] Patient Name: ALISON MARQUIS MRN: [facility]:[id number] date: 2000 Sex: F Assigned Patient Location: US Current Patient Location: US Accession/Order Number: [id number] Exam Date: 05/30/2023 15:30 Report Date: 05/30/2023 16:05 At the request of: ZAINAB LOPES Procedure: US OB BPP w non-stress EXAMINATION: US OB BPP w non-stress HISTORY: EXCESSIVE GROWTH O36.63X1 COMPARISON: No relevant comparison available. TECHNIQUE: Ultrasound biophysical profile was performed in the radiology department. non-reactive stress testing was performed by nursing staff in the birthing center. FINDINGS: BREATHING MOVEMENTS: 2.0 GROSS BODY MOVEMENTS: 2.0 TONE: 2.0 QUALITATIVE AMNIOTIC FLUID VOLUME: 2.0 PRESENTATION: CEPHALIC HEART RATE: 160.7 bpm H.B./min AMNIOTIC FLUID VOLUME: 16.5 cm cm GESTATIONAL AGE: 36 weeks 5 days CONCLUSION: Total biophysical profile score: 8.0 Electronically authenticated by: JEN GEORGE Date: 05/30/2023 16:05 Dictated By: Jen George M.D. Signed By: 05/30/23 1607 DD/ 160 TD/TT: Piece Dyeing Machine Tender:TBHRadiology, Radiologist, - 08/17/2023 [place] [address] Ultrasound Report Signed Patient: ALISON MARQUIS MR#: [id number] : 2000 Acct:[id number] Age/Sex: 22 / F ADM Date: 05/30/23 Loc: US Attending Dr: Zainab Lopes D.O. Ordering Physician: Zainab Lopes D.O. Date of Service: 05/30/23 Procedure(s): US OB BPP w non-stress Accession Number(s): [id number] cc: Zainab Lopes D.O.; Natalie Ray [place] [address] Patient Name: ALISON MARQUIS MRN: [facility]:[id number] date: 2000 Sex: F Assigned Patient Location: US Current Patient Location: US Accession/Order Number: [id number] Exam Date: 05/30/2023 15:30 Report Date: 05/30/2023 16:05 At the request of: ZAINAB LOPES Procedure: US OB BPP w non-stress EXAMINATION: US OB BPP w non-stress HISTORY: EXCESSIVE GROWTH O36.63X1 COMPARISON: No relevant comparison available. TECHNIQUE: Ultrasound biophysical profile was performed in the radiology department. non-reactive stress testing was performed by nursing staff in the birthing center. FINDINGS: BREATHING MOVEMENTS: 2.0 GROSS BODY MOVEMENTS: 2.0 TONE: 2.0 QUALITATIVE AMNIOTIC FLUID VOLUME: 2.0 PRESENTATION: CEPHALIC HEART RATE: 160.7 bpm H.B./min AMNIOTIC FLUID VOLUME: 16.5 cm cm GESTATIONAL AGE: 36 weeks 5 days CONCLUSION: Total biophysical profile score: 8.0 Electronically authenticated by: JEN GEORGE Date: 05/30/2023 16:05 Dictated By: Jen George M.D. Signed By: 05/30/231606 DD/ 04 TD/TT: Piece Dyeing Machine Tender: NOMS HealthcareRadiology Study observation (narrative)NOMS HealthcareUS OB BPP W NON-STRESSOrdered By: Radiologist Radiology on 63-24-0440TWWC [facility] Work Phone: US OB BPP W NON-STRESSon [phone], [place] [address] Ultrasound Report Signed Patient: ALISON MARQUIS MR#: [id number] : 2000 Acct:[id number] Age/Sex: 22 / F ADM Date: 05/23/23 Loc: US Attending Dr: Zainab Lopes D.O. Ordering Physician: Zainab Lopes D.O. Date of Service: 05/23/23 Procedure(s): US OB BPP w non-stress Accession Number(s): [id number] cc: Zainab Lopes D.O.; Natalie Ray [place] [phone] Patient Name: ALISON MARQUIS MRN: [id number] date: 2000 Sex: F Assigned Patient Location: [facility] Current Patient Location: Accession/Order Number: [id number] Exam Date: 05/23/2023 14:57 Report Date: 05/23/2023 15:44 At the request of: ZAINAB LOPES Procedure: US OB BPP w non-stress EXAMINATION: US OB BPP w non-stress HISTORY: EXCESSIVE GROWTH COMPARISON: No relevant comparison available. TECHNIQUE: Ultrasound biophysical profile was performed in the radiology department. FINDINGS: BREATHING MOVEMENTS: 2.0 GROSS BODY MOVEMENTS: 2.0 TONE: 2.0 QUALITATIVE AMNIOTIC FLUID VOLUME: 2.0 PRESENTATION: CEPHALIC HEART RATE: 164.6 bpm H.B./min AMNIOTIC FLUID VOLUME: 20.3 cm cm GESTATIONAL AGE: 35 weeks 5 days CONCLUSION: Total biophysical profile score: 8.0 Electronically authenticated by: JEN GEORGE Date: 05/23/2023 15:44 Dictated By: Jen George M.D. Signed By: 05/23/23 1547 DD/ 1544 TD/TT: Piece Dyeing Machine Tender:TBHRadiology, Radiologist, MD - 08/17/2023 [place] [address] Ultrasound Report Signed Patient: ALISON MARQUIS MR#: [id number] : 2000 Acct:[id number] Age/Sex: 22 / F ADM Date: 05/23/23 Loc: US Attending Dr: Zainab Lopes D.O. Ordering Physician: Zainab Lopes D.O. Date of Service: 05/23/23 Procedure(s): US OB BPP w non-stress Accession Number(s): [id number] cc: Zainab Lopes D.O.; Natalie Ray [place] [phone] Patient Name: ALISON MARQUIS MRN: [id number] date: 2000 Sex: F Assigned Patient Location: [facility] Current Patient Location: Accession/Order Number: [id number] Exam Date: 05/23/2023 14:57 Report Date: 05/23/2023 15:44 At the request of: ZAINAB LOPES Procedure: US OB BPP w non-stress EXAMINATION: US OB BPP w non-stress HISTORY: EXCESSIVE GROWTH COMPARISON: No relevant comparison available. TECHNIQUE: Ultrasound biophysical profile was performed in the radiology department. FINDINGS: BREATHING MOVEMENTS: 2.0 GROSS BODY MOVEMENTS: 2.0 TONE: 2.0 QUALITATIVE AMNIOTIC FLUID VOLUME: 2.0 PRESENTATION: CEPHALIC HEART RATE: 164.6 bpm H.B./min AMNIOTIC FLUID VOLUME: 20.3 cm cm GESTATIONAL AGE: 35 weeks 5 days CONCLUSION: Total biophysical profile score: 8.0 Electronically authenticated by: JEN GEORGE Date: 05/23/2023 15:44 Dictated By: Jen George M.D. Signed By: 05/23/23 1547 DD/ 1544 TD/TT: Piece Dyeing Machine Tender: FLORIN HealthcareRadiology Study observation (narrative)NOMS HealthcareUS OB BPP W NON-STRESSOrdered By: Radiologist Radiology on 57-62-5058TGCV Healthcare Work Phone: US OB GROWTHon [phone], [place] [address] Ultrasound Report Signed Patient: ALISON MARQUIS MR#: [id number] : 2000 Acct:[id number] Age/Sex: 22 / F ADM Date: 05/19/23 Loc: US Attending Dr: Mary Santana Ordering Physician: Mary Santana Date of Service: 05/19/23 Procedure(s): US OB growth Accession Number(s): [id number] cc: Mary Santana; Natalie Ray [place] [phone] Patient Name: ALISON MARQUIS MRN: [id number] date: 2000 Sex: F Assigned Patient Location: Current Patient Location: US Accession/Order Number: [id number] Exam Date: 05/19/2023 10:19 Report Date: 05/19/2023 12:37 At the request of: MARY SANTANA Procedure: US OB growth EXAMINATION: US OB growth HISTORY: LGA COMPARISON: 04/19/2023 TECHNIQUE: Transabdominal sonographic examination was performed for obstetrical and evaluation. FINDINGS: Number: 1 Heart Rate: 152.0 bpm H.B. /min Amniotic Fluid Volume: 12.7 cm, largest fluid pocket 4.6 cm position: Cephalic presentation, longitudinal lie Placental Location: Anterior, grade 3 Cervix Length: Not measured BIOMETRY: BPD: 9.5 cm 38 weeks 4 days, > 97% HC: 33.8 cm 38 weeks 5 days, 93% AC: 34.9 cm 38 weeks 6 days, >97% FL: 6.9 cm 35 weeks 3 days, 62% EFW: 3372.9 grams grams ; 7 lbs. 7 oz., >97% FL/AC: 19.8 FL/BPD: 73.0 HC/AC: 1.0 GESTATIONAL AGE: Age by EDC: 35 weeks 1 days DC by EDC: 06/22/2023 Age by current US: 37 weeks 6 days DC by current US: 06/03/2023 US/US OB growth IMPRESSION: Large for gestational age, multiple measurements above the 97th percentile *Reference: [employer]UM Practice Guideline for the performance of Obstetric Ultrasound Examinations, March 13, 2007. Electronically authenticated by: JEN GEORGE Date: 05/19/2023 12:37 Dictated By: Jen George M.D. Signed By: 05/19/23 1240 DD/ 1237 TD/TT: Piece Dyeing Machine Tender:TBHRadiology, Radiologist, - 08/17/2023 [place] [address] Ultrasound Report Signed Patient: ALISON MARQUIS MR#: [id number] : 2000 Acct:[id number] Age/Sex: 22 / F ADM Date: 05/19/23 Loc: US Attending Dr: Mary Santana Ordering Physician: Mary Santana Date of Service: 05/19/23 Procedure(s): US OB growth Accession Number(s): [id number] cc: Mary Santana; Natalie Ray [place] [address] Patient Name: ALISON MARQUIS MRN: [id number] date: 2000 Sex: F Assigned Patient Location: US Current Patient Location: US Accession/Order Number: [id number] Exam Date: 05/19/2023 10:19 Report Date: 05/19/2023 12:37 At the request of: MARY SANTANA Procedure: US OB growth EXAMINATION: US OB growth HISTORY: LGA COMPARISON: 04/19/2023 TECHNIQUE: Transabdominal sonographic examination was performed for obstetrical and evaluation. FINDINGS: Number: 1 Heart Rate: 152.0 bpm H.B. /min Amniotic Fluid Volume: 12.7 cm, largest fluid pocket 4.6 cm position: Cephalic presentation, longitudinal lie Placental Location: Anterior, grade 3 Cervix Length: Not measured BIOMETRY: BPD: 9.5 cm 38 weeks 4 days, > 97% HC: 33.8 cm 38 weeks 5 days, 93% AC: 34.9 cm 38 weeks 6 days, >97% FL: 6.9 cm 35 weeks 3 days, 62% EFW: 3372.9 grams grams ; 7 lbs. 7 oz., >97% FL/AC: 19.8 FL/BPD: 73.0 HC/AC: 1.0 GESTATIONAL AGE: Age by EDC: 35 weeks 1 days DC by EDC: 06/22/2023 Age by current US: 37 weeks 6 days DC by current US: 06/03/2023 US/US OB growth IMPRESSION: Large for gestational age, multiple measurements above the 97th percentile *Reference: [employer]UM Practice Guideline for the performance of Obstetric Ultrasound Examinations, March 13, 2007. Electronically authenticated by: JEN GEORGE Date: 05/19/2023 12:37 Dictated By: Jen George M.D. Signed By: 05/19/23 1240 DD/ 1237 TD/TT: Piece Dyeing Machine Tender: FLORIN HealthcareRadiology Study observation (narrative)[facility] MEMORIAL HOSPITALZeinab German HospitalUS OB GROWTHOrdered By: Radiologist Radiology on 33-83-3046EYQESaint Luke's North Hospital–Smithville Work Phone: cCF APTTon 69-55-2389qEND Coag (Bld) [Time]27.5 [facility] HospitalMHPT FIBRINOGENon 25-76-0101Opjoyljjx [Mass/Vol]395 mg/dLSaint Luke's North Hospital–SmithvilleComment on above:Testing performed by [facility] Reference Range: 200-393 mg/dL No Panel Informationon 41-53-1366FXXOEXEJQBXUB HealthcareSRMCOH PROTHROMBIN TIME INR W/O COUMon 99-62-6007IC Coag (PPP) [Time]10.3 [facility] INR0.97 [facility] HealthcareComment on above:DESIRED INR: 2.0-3.0 CONDITIONS NOT LISTED BELOW 2.5-3.5 FOR PROSTHETIC HEART VALVE REPLACEMENT 2.5-3.5 RECURRENT THROMBOSIS ALL BUNon 73-36-6330Clvk nitrogen [Mass/Vol]5.0 mg/dLLow7.0 - 18.0 mg/dLSaint Luke's North Hospital–SmithvilleALL CBC WITH AUTO DIFFon 52-40-6376BSDPCPJEA ABSOLUTE AUTO0.0NODeaconess Incarnate Word Health SystemBasophils/100 WBC (Bld)0.4 %0.2 - 2.0 %[facility]–SmithvilleEosinophils/100 WBC (Bld)0.9 %0.9 - 7.0 %[facility]–SmithvilleErythrocyte distribution width (RBC) [Ratio]14.5 %11.0 - 15.0 %[facility]–SmithvilleHematocrit (Bld) [Volume fraction]33.9 %Low36.0 - 48.0 %[facility]–SmithvilleHemoglobin (Bld) [Mass/Vol]11.0 g/dLLow12.0 - 16.0 g/dLSaint Luke's North Hospital–SmithvilleIMMATURE GRANULOCYTES ABS AUTO0.13HighSaint Luke's North Hospital–Smithville Immature granulocytes/100 WBC (Bld)1.2 %High0.0 - 0.5 %[facility] Interpretation and review of laboratory resultsAbnormalSaint Luke's North Hospital–[facility]ville LYMPHOCYTES ABSOLUTE AUTO2.4NODeaconess Incarnate Word Health SystemLymphocytes/100 WBC (Bld)23.0 %20.5 - 60.0 %[facility] HospitalH (RBC) [Entitic mass]27.3 pg26.7 - 34.0 pgSaint John's Aurora Community HospitalHC (RBC) [Mass/Vol]32.4 g/dL29.9 - 35.2 g/dLSaint John's Aurora Community HospitalV (RBC) [Entitic vol]84.1 fL81.0 - 99.0 fLSaint Luke's North Hospital–SmithvilleMONOCYTES ABSOLUTE AUTO1.0High [facility]–SmithvilleMonocytes/100 WBC (Bld)9.2 %1.7 - 12.0 %[facility] NEUTROPHILS ABSOLUTE AUTO6.9HighSaint Luke's North Hospital–SmithvilleNeutrophils/100 WBC (Bld)65.3 % 43.0 - 75.0 %[facility]–SmithvillePlatelet mean volume (Bld) [Entitic vol]10.4 fL9.5 - 13.5 fLNortheast Missouri Rural Health Network EO #0.1NOMS [facility] UAM224YFICHCA [facility] RBC 4.03LowNOHCA [facility] WBC10.6NODeaconess Incarnate Word Health SystemCLINISYNSOLOMON [facility] HealthcareLOS [facility] URIC ACIDon 18-25-0449Sxtwx [Mass/Vol]5.0 mg/dL2.6 - 6.0 mg/dLNODeaconess Incarnate Word Health SystemCC ALT on 22-46-1905OFE [Catalytic activity/Vol]13 U/LLow14 - 59 U/LNOMS HealthcareCCF Les 99-11-7919PVC [Catalytic activity/Vol]13 U/LLow15 - 37 U/LNOMS Healthcare Fibrinogenon 85-19-8138Jwvqbqrgcd160 mg/vDDjnl313-724XftkmnzvtFostoria City HospitalComment on above:Result Comment: A hematocrit value greater than 55% may lead to inaccurate results in coagulation testing. Patients having hematocrit values >55% require a special collection tube for coagulation studies. Please contact the laboratory at [phone] for redraw instructions. PERFORMED BY: [place] [address] PATHOLOGIST SEISMOGRAPHER PHAM SUAREZ M.D.Performed By: #### FIB-C #### [place] [address] USAFibrinogen [Mass/volume] in Platelet poor plasma by Coagulation assayOrdered By: Zainab Lopes on 79-42-9757Mbdvmrblqt Coag (PPP) [Mass/Vol]395 mg/gU462-384NahbjxtnfFostoria City HospitalComment on above:A hematocrit value greater than 55% may lead to inaccurate results in coagulation testing. Patientshaving hematocrit values >55% require a special collection tube for coagulation studies. Please contact the laboratory at [phone] for redraw instructions.No Panel Informationon 95-84-5512Qrlcpgwibxudok and review of laboratory resultsAbnormalNOSaint Francis Medical CenterYNMcLeod Health DillonTBH CREATININEon 17-84-4826Aqujoziarz [Mass/Vol]0.62 mg/dL0.55 - 1.02 mg/dLSaint Luke's North Hospital–SmithvilleGFR/1.73 sq M.predicted CKD-EPI (S/P/Bld) [Vol rate/Area]>6060 - PINF [facility]–SmithvilleTB EGFR-NON AF COSTA RICAN>6060 - PINFNOMS HealthcareUS OB BPP W NON-STRESSon 77-81-0954[place] [address] Ultrasound Report Signed Patient: ALISON MARQUIS MR#: [id number] : 2000 Acct:[id number] Age/Sex: 22 / F ADM Date: 04/25/23 Loc: [facility] 250-[address]: Zainab Lopes D.O. Ordering Physician: Zainab Lopes D.O. Date of Service: 04/25/23 Procedure(s): US OB BPP w non-stress Accession Number(s): [id number] cc: Zainab Lopes D.O.; Natalie Ray [place] [phone] Patient Name: ALISON MARQUIS MRN: [id number] date: 2000 Sex: F Assigned Patient Location: [facility] Current Patient Location: [facility] Accession/Order Number: [id number] Exam Date: 04/25/2023 15:00 Report Date: 04/25/2023 16:03 At the request of: ZAINAB LOPES Procedure: US OB BPP w non-stress EXAMINATION: US OB BPP w non-stress HISTORY: EXCESSIVE GROWTH COMPARISON: Ultrasound OB growth 04/19/2023 TECHNIQUE: Ultrasound biophysical profile was performed in the radiology department. BREATHING MOVEMENTS: 2.0 GROSS BODY MOVEMENTS: 2.0 TONE: 2.0 QUALITATIVE AMNIOTIC FLUID VOLUME: 2.0 PRESENTATION: CEPHALIC HEART RATE: 145.2 bpm bpm. AMNIOTIC FLUID VOLUME: 17.6 cm GESTATIONAL AGE: 31 weeks 5 days CONCLUSION: Total biophysical profile score 8.0. Electronically authenticated by: DYLAN MATTHEWS Date: 04/25/2023 16:03 Dictated By: Dylan Matthews M.D. Signed By: 04/25/231605 DD/ 02 TD/TT: Piece Dyeing Machine Tender:MOSHEHRadiology, Radiologist, - 04/25/2023 The [address] [place] [address] Ultrasound Report Signed Patient: ALISON MARQUIS MR#: [id number] : 2000 Acct:[id number] Age/Sex: 22 / F ADM Date: 04/25/23 Loc: [facility] 250-[address]: Zainab Lopes D.O. Ordering Physician: Zainab Lopes D.O. Date of Service: 04/25/23 Procedure(s): US OB BPP w non-stress Accession Number(s): [id number] cc: Zainab Lopes D.O.; Natalie Ray [address] [address] Patient Name: ALISON MARQUIS MRN: [id number] date: 2000 Sex: F Assigned Patient Location: [facility] Current Patient Location: [facility] Accession/Order Number: [id number] Exam Date: 04/25/2023 15:00 Report Date: 04/25/2023 16:03 At the request of: ZAINAB LOPES Procedure: US OB BPP w non-stress EXAMINATION: US OB BPP w non-stress HISTORY: EXCESSIVE GROWTH COMPARISON: Ultrasound OB growth 04/19/2023 TECHNIQUE: Ultrasound biophysical profile was performed in the radiology department. BREATHING MOVEMENTS: 2.0 GROSS BODY MOVEMENTS: 2.0 TONE: 2.0 QUALITATIVE AMNIOTIC FLUID VOLUME: 2.0 PRESENTATION: CEPHALIC HEART RATE: 145.2 bpm bpm. AMNIOTIC FLUID VOLUME: 17.6 cm GESTATIONAL AGE: 31 weeks 5 days CONCLUSION: Total biophysical profile score 8.0. Electronically authenticated by: DYLAN MATTHEWS Date: 04/25/2023 16:03 Dictated By: Dylan Matthews M.D. Signed By: 04/25/231605 DD/ 02 TD/TT: Piece Dyeing Machine Tender: FLORIN HealthcareRadiology Study observation (narrative)[facility] HealthcareUS OB BPP W NON-STRESSOrdered By: Radiologist Radiology on 83-81-9415[facility] Work Phone: US OB GROWTHon [phone], [place] [address] Ultrasound Report Signed Patient: ALISON MARQUIS MR#: [id number] : 2000 Acct:[id number] Age/Sex: 22 / F ADM Date: 04/19/23 Loc: US Attending Dr: Zainab Lopes D.O. Ordering Physician: Zainab Lopes D.O. Date of Service: 04/19/23 Procedure(s): US OB growth Accession Number(s): [id number] cc: Zainab Lopes D.O.; Natalie Ray [place] [address] Patient Name: ALISON MARQUIS MRN: [id number] date: 2000 Sex: F Assigned Patient Location: US Current Patient Location: US Accession/Order Number: [id number] Exam Date: 04/19/2023 09:56 Report Date: 04/19/2023 16:50 At the request of: ZAINAB LOPES Procedure: US OB growth EXAMINATION: US OB growth HISTORY: SIZE INCONSISTENT WITH DATES COMPARISON: 01/31/2023 FINDINGS: Heart Rate: 156.0 bpm Amniotic Fluid Volume: 21.0 cm Number: 1.0 Position: Cephalic presentation, longitudinal lie Maximum Vertical Pocket: 7.9 cm cm 6.2 cm cm 4.9 cm cm 2.1 cm cm BIOMETRY: BPD: 8.6 cm cm; 34 weeks 5 days; greater than 97% HC: 31.1 cmcm; 34 weeks 5 days , greater than 97% AC: 29.4 cm cm; 33 weeks 3 days, 97% FL: 6.0 cm cm; 31 weeks 3 days; 50.2 % % EFW: 2107.9 grams, 4 lbs. 10 oz., 96% FL/AC: 20.5 FL/BPD: 70.1 HC/AC: 1.1 GESTATIONAL AGE: Age by EDC: 30 weeks 6 days DC by EDC: 06/22/2023 Age by US: 33 weeks 4 days DC by US: 06/03/2023 US/US OB growth IMPRESSION: Large for gestational age, estimated weight at the 96th percentile Electronically authenticated by: JEN GEORGE Date: 04/19/2023 16:50 Dictated By: Jen George M.D. Signed By: 04/19/231652 DD/ 49 TD/TT: Piece Dyeing Machine Tender:MOSHEHRadiology, Radiologist, - 04/19/2023 [place] [address] Ultrasound Report Signed Patient: ALISON MARQUIS MR#: [id number] : 2000 Acct:[id number] Age/Sex: 22 / F ADM Date: 04/19/23 Loc: US Attending Dr: Zainab Lopes D.O. Ordering Physician: Zainab Lopes D.O. Date of Service: 04/19/23 Procedure(s): US OB growth Accession Number(s): [id number] cc: Zainab Lopes D.O.; Natalie Ray The [place] [address] Patient Name: ALISON MARQUIS MRN: [id number] date: 2000 Sex: F Assigned Patient Location: US Current Patient Location: US Accession/Order Number: [id number] Exam Date: 04/19/2023 09:56 Report Date: 04/19/2023 16:50 At the request of: ZAINAB LOPES Procedure: US OB growth EXAMINATION: US OB growth HISTORY: SIZE INCONSISTENT WITH DATES COMPARISON: 01/31/2023 FINDINGS: Heart Rate: 156.0 bpm Amniotic Fluid Volume: 21.0 cm Number: 1.0 Position: Cephalic presentation, longitudinal lie Maximum Vertical Pocket: 7.9 cm cm 6.2 cm cm 4.9 cm cm 2.1 cm cm BIOMETRY: BPD: 8.6 cm cm; 34 weeks 5 days; greater than 97% HC: 31.1 cmcm; 34 weeks 5 days , greater than 97% AC: 29.4 cm cm; 33 weeks 3 days, 97% FL: 6.0 cm cm; 31 weeks 3 days; 50.2 % % EFW: 2107.9 grams, 4 lbs. 10 oz., 96% FL/AC: 20.5 FL/BPD: 70.1 HC/AC: 1.1 GESTATIONAL AGE: Age by EDC: 30 weeks 6 days DC by EDC: 06/22/2023 Age by US: 33 weeks 4 days DC by US: 06/03/2023 US/US OB growth IMPRESSION: Large for gestational age, estimated weight at the 96th percentile Electronically authenticated by: JEN GEORGE Date: 04/19/2023 16:50 Dictated By: Jen George M.D. Signed By: 04/19/231652 DD/ 49 TD/TT: Piece Dyeing Machine Tender: FLORIN HealthcareRadiology Study observation (narrative)FLOIRN [facility]US OB GROWTHOrdered By: Radiologist Radiology on 86-43-6127HGEX [facility] Work Phone: US PREG TVon 50-53-3400GPGZJWQENDO: US PREG TV HISTORY: Missed period COMPARISON: No relevant comparison available. FINDINGS: Burton intrauterine gestation Gestational sac: 1.17 cm, 5 weeks 2 days CRL: 1.03 cm, 7 weeks 1 day Yolk sac: 5.8 mm Heart rate: 157 bpm Cervix: Closed, 4 cm The uterus is normal, anteverted, anteflexed The ovaries are normal in appearance. Left corpus luteal cyst Cervix: 4.0 cm, closed Clinical age: 8 weeks 1 day Clinical DC: 06/15/2023 Ultrasound age: 7 weeks 1 day Ultrasound DC: 06/22/2023 IMPRESSION: Viable burton intrauterine gestation measuring 7 weeks 1 day Electronically authenticated by: JEN GEORGE Date: 2022-11-04 16:23TBHRadiology, Radiologist, - 11/04/2022 EXAMINATION: US PREG TV HISTORY: Missed period COMPARISON: No relevant comparison available. FINDINGS: Burton intrauterine gestation Gestational sac: 1.17 cm, 5 weeks 2 days CRL: 1.03 cm, 7 weeks 1 day Yolk sac: 5.8 mm Heart rate: 157 bpm Cervix: Closed, 4 cm The uterus is normal, anteverted, anteflexed The ovaries are normal in appearance. Left corpus luteal cyst Cervix: 4.0 cm, closed Clinical age: 8 weeks 1 day Clinical DC: 06/15/2023 Ultrasound age: 7 weeks 1 day Ultrasound DC: 06/22/2023 IMPRESSION: Viable burton intrauterine gestation measuring 7 weeks 1 day Electronically authenticated by: JEN GEORGE Date: 2022-11-04 16:23 [facility] HealthcareRadiology Study observation (narrative)NOM[facility] HealthcareUS PREG TV Ordered By: Radiologist Radiology on 10-54-4268[facility] Work Phone: PREG QUANT HCGon 16-60-9886DAK [id number] mIU/mLNormal [facility] HospitalComment on above:Performed By: #### PREGQNT #### [facility] [address] [place] [address] Dr. Nicole Arias [facility] on above: Result Comment: 5-50 0.2-1 WEEK 50-500 1-2 WEEKS 100-5,000 2-3 WEEKS 500-10,000 3-4 WEEKS 1,000-50,000 4-5 WEEKS 10,000-100,000 5-6 WEEKS 15,000-200,000 6-8 WEEKS 10,000-100,000 2-3 MONTHSPerformed By: #### PREGQNT #### [facility] [address] [place] [address] Dr. Nicole Yuen QUANT HCGon 11-67-8294BXS [id number] mIU/mLNormalAshtabula General HospitalCommunson healthcare [facility] on above:Performed By: #### PREGQNT #### [facility] [address] [place] [address] Dr. Nicole LEAL [facility] on above: Result Comment: 5-50 0.2-1 WEEK 50-500 1-2 WEEKS 100-5,000 2-3 WEEKS 500-10,000 3-4 WEEKS 1,000-50,000 4-5 WEEKS 10,000-100,000 5-6 WEEKS 15,000-200,000 6-8 WEEKS 10,000-100,000 2-3 MONTHSPerformed By: #### PREGQNT #### [facility] [address] [place] [address] Dr. Nicole Combs AUTO DIFFon 45-57-5049ADDZ #0.1 103/ulNormal0.0-0.1The [facility] CenterComment on above:Performed By: #### CBC #### [facility] [address] [place] [address] Dr. Nicole RobertsBasophils/100 WBC (Bld)0.7 %Normal0.2-2.0The [facility] Comment on above:Performed By: #### CBC #### [facility] [address] [place] [address] Dr. Nicole Meadows #0.1 103/ulNormal0.0-0.7The [facility] CenterComment on above: Performed By: #### CBC #### [facility] [address] [place] [address] Dr. Nicole Hajiosinophils/100 WBC (Bld)1.1 %Normal0.9-7.0The [facility] Comment on above:Performed By: #### CBC #### [facility] [address] [place] [address] Dr. Nicole Hajirythrocyte distribution width (RBC) [Ratio]14.6 %Hhmqvx66.0-15.0 The [facility] CenterComment on above:Performed By: #### CBC #### [facility] [address] [place] [address] Dr. Nicole RobertsHematocrit (Bld) [Volume fraction]37.7 %Ophznx79.0-48.0The [facility] CenterComment on above:Performed By: #### CBC #### [facility] [address] [place] [address] Dr. Nicole RobertsHemoglobin (Bld) [Mass/Vol]12.2 g/sMEgscfu22.0-16.0The [facility] CenterComment on above:Performed By: #### CBC #### [facility] [address] [place] [address] Dr. Nicole Tenorio #0.02 10e3/ulNormal0.00-0.03The [facility] CenterComment on above:Performed By: #### CBC #### [facility] [address] [place] [address] [address] Nicole Tenorio %0.3 %Normal0.0-0.5The [facility] on above: Performed By: #### CBC #### [facility] [address] [place] [address] [address] Nicole Irvin #2.2 103/ulNormal1.2-3.8The [facility] on above:Performed By: #### CBC #### [facility] [address] [place] [address] Dr. Nicole Fanghocytes/100 WBC (Bld)30.8 %Vzqptc50.5-60.0The [facility] on above:Performed By: #### CBC #### [facility] [address] [place] [address] Dr. Nicole De La RosaUAL DIFF REQNONormalThe [facility] CenterComment on above: Performed By: #### CBC #### [facility] [address] [place] [address] Dr. Nicole Bullock (RBC) [Entitic mass]25.4 pgCritically low26.7-34.0The [facility] on above:Performed By: #### CBC #### [facility] [address] [place] [address] Dr. Nicole Bullock (RBC) [Mass/Vol]32.4 g/rQHupsxq25.9-35.2The [facility] on above:Performed By: #### CBC #### [facility] [address] [place] [address] Dr. Nicole Bullock (RBC) [Entitic vol]78.4 fLCritically low81.0-99.0The [facility] on above:Performed By: #### CBC #### [facility] [address] [place] [address] Dr. Nicole Jovel #0.6 103/ulNormal0.3-0.8The [facility] CenterComment on above:Performed By: #### CBC #### [facility] [address] [place] [address] Dr. Nicole Stubbsocytes/100 WBC (Bld)8.2 %Normal1.7-12.0The [facility] Comment on above:Performed By: #### CBC #### [facility] [address] [place] [address] Dr. Nicole LindoUT #4.2 103/ulNormal1.4-6.5The [facility] CenterComment on above:Performed By: #### CBC #### [facility] [address] [place] [address] Dr. Nicole Lindoutrophils/100 WBC (Bld)58.9 %Viifxk43.0-75.0The [facility] CenterComment on above:Performed By: #### CBC #### [facility] [address] [place] [address] Dr. Nicole RobertsPlatelet mean volume (Bld) [Entitic vol]9.5 fLNormal9.5-13.5The [facility] CenterComment on above:Performed By: #### CBC #### [facility] [address] [place] [address] Dr. Nicole RobertsPLT294 103/xnIlaatc229-202Gzx [facility] CenterComment on above: Performed By: #### CBC #### [facility] [address] [place] [address] Dr. Nicole RobertsRBC4.81 106/ulNormal4.20-5.40The [facility] CenterComment on above:Performed By: #### CBC #### [facility] [address] [place] [address] Dr. Nicole RobertsWBC7.1 103/ulNormal4.0-11.0The [facility] CenterComment on above: Performed By: #### CBC #### [facility] [address] [place] [address] Dr. Nicole RobertsPREG QUANT HCGon 78-16-4304AIZ QUANT<1NormalThe [facility] Comment on above:Performed By: #### PREGQNT #### [facility] [address] [place] [address] [address] Nicole RobertsKettering Health Main CampusComment on above: Result Comment: 5-50 0.2-1 WEEK 50-500 1-2 WEEKS 100-5,000 2-3 WEEKS 500-10,000 3-4 WEEKS 1,000-50,000 4-5 WEEKS 10,000-100,000 5-6 WEEKS 15,000-200,000 6-8 WEEKS 10,000-100,000 2-3 MONTHSPerformed By: #### PREGQNT #### [facility] [address] [place] [address] Dr. Nicole Roberts Vital Signs Date TimeVital SignValuePerforming IokrlnwguGumwpqny23-09-0376 14:07-0400Body mass index (BMI) [Ratio]39.56 kg/a0Ictou Marianne DO Work Phone: [facility]villeLdnbvbozvk40-11-9846 14:07-0400Body jicduy744.19 kgCorey Marianne DO Work Phone: [facility]SmithvilleVtfnbajzbm32-33-9282 14:07-0400Diastolic blood ptovxtxn39 mm[Hg]Zainab Marianne DO Work Phone: [facility]SmithvilleKhmjddtuza04-19-8318 14:07-0400Systolic blood yyzfioqy692 mm[Hg]Zainab Marianne DO Work Phone: [facility]villeGryxskxsfj78-24-0797 13:39-0500Body mass index (BMI) [Ratio]41.61 kg/m2Mary FRIEDMAN Work Phone: [facility]SmithvilleSvcylutjvw09-64-6380 13:39-0500Body rzmqul029.94 kgMary FRIEDMAN Work Phone: [facility]SmithvilleLmvqusawyl53-18-1077 13:39-0500Diastolic blood oljrqdrj16 mm[Hg]Mary FRIEDMAN Work Phone: [facility]SmithvilleCxwgzbmwdl95-44-1471 13:39-0500Systolic blood adbxhjwa836 mm[Hg]Mary FRIEDMAN Work Phone: no[facility] Encounters Encounter DateEncounter TypeCare ProviderFacilityStart: 02-01-2024 End: 48-71-8361Ondxbj flowsheetCorey Marianne DO Work Phone: [facility] BCP OBStart: 02-01-2024 End: 31-61-8283Utjtwy flowsheetCorey Marianne DO Work Phone: [facility] BCP OBStart: 02-01-2024 End: 06-61-2527Aquaprnsq Result EncounterCorey Marianne DO Work Phone: noMS External Department UnsolicitedStart: 02-01-2024 End: 26-56-4568Yrvsznb encounter procedureCorey Marianne DO Work Phone: [facility] Work Phone: Start: 02-01-2024 End: 75-58-5589Seznxvwl preventive med est patient 18-39 yrsCorey Marianne DO Work Phone: [facility] BCP OBComment on above:Well woman exam with routine gynecological exam; Abnormal uterine bleeding (AUB)Start: 02-01-2024 End: 11-23-8155siuboygmrcJRUND FAZIONot AvailableStart: 07-21-2023 End: 99-49-2649Sixcbybdmz care visitMary FRIEDMAN Work Phone: noMS [facility] OBComment on above:6 weeks follow-upStart: 07-21-2023 End: 49-20-2669tvuijaubfxPKU RAMEYNot AvailableStart: 06-16-2023 End: 64-57-6486oemtttcohnFMW RAMEYNot AvailableStart: 06-07-2023 End: 07-84-0887Rhclyjbcq Result EncounterCorey Marianne DO Work Phone: noMS External Department UnsolicitedStart: 06-07-2023 End: 10-71-4903Ixzglzbqc Result EncounterCorey Marianne DO Work Phone: noms External Department UnsolicitedStart: 06-02-2023 End: 25-01-7225ehlhbscibjWTILK FAZIONot AvailableStart: 05-30-2023 End: 55-35-3286Lfrteotpx Result EncounterCorey Marianne DO Work Phone: noms External Department UnsolicitedStart: 05-30-2023 End: 13-79-8445Mgthdlzpm Result EncounterCorey Marianne DO Work Phone: noms External Department UnsolicitedStart: 05-26-2023 End: 43-02-7167qpurrkprthLLZ RAMRAYSANot AvailableStart: 05-23-2023 End: 89-46-7653Nyejcrogg Result EncounterCorey Marianne DO Work Phone: noms External Department UnsolicitedStart: 05-23-2023 End: 40-20-4948Ohoopipxv Result EncounterCorey Marianne DO Work Phone: noms External Department UnsolicitedStart: 05-19-2023 End: 20-00-4784Ihrsgdmdy Result EncounterAmy Alpine PA Work Phone: noms External Department UnsolicitedStart: 05-19-2023 End: 15-57-3093Lknhsxmys Result EncounterAmy Alpine PA Work Phone: noms External Department UnsolicitedStart: 05-19-2023 End: 19-77-3085ajewdrzociJNAOK FAZIONot AvailableStart: 05-03-2023 End: 88-81-1287dzltmeldgiJJQ RAMRAYSANot AvailableStart: 04-25-2023 End: 92-20-6496xcsfqgnqklAmqso MullinsFacility:[facility] Start: 04-25-2023 End: 82-13-7374mxbbtuyjibVsppk Marianne Work Phone: [facility] Work Phone: Start: 04-25-2023 End: 82-88-3583Bpzmziqz ReferredCorey Marianne Work Phone: [facility] [place] Work Phone: Start: 04-25-2023 End: 97-50-6073Nmyhoqmgp Result EncounterCorey Marianne DO Work Phone: noms External Department UnsolicitedStart: 04-25-2023 End: 79-09-0067Lhmrwaylo Result EncounterCorey Marianne DO Work Phone: noms External Department UnsolicitedStart: 04-19-2023 End: 29-06-1680Rsiufimct Result EncounterCorey Marianne DO Work Phone: noms External Department UnsolicitedStart: 04-19-2023 End: 97-49-8814Lewjjvpvp Result EncounterCorey Marianne DO Work Phone: noms External Department UnsolicitedStart: 11-04-2022 End: 13-77-5725Etcpuxwxl Result EncounterCorey Marianne DO Work Phone: noms External Department UnsolicitedStart: 11-04-2022 End: 48-38-6357Zxktfxefw Result EncounterCorey Marianne DO Work Phone: noms External Department UnsolicitedStart: 10-18-2022 ambulatoryPENNY MULLINSFacility:V8Ayrxo: 52-46-6200Uoptxplwc for preprocedural cardiovascular examinationDR ZAINAB MARIANNE .[facility] HospitalStart: 07-23-2022 End: 92-28-9146bhnqsirypuVM ZAINAB MARIANNE .Facility:I4Himyx: 07-21-2022 End: 00-74-7250aazuwluuwhMITLB MULLINSFacility:Y4Dzlsw: 07-21-2022 End: 27-65-9861Dppwrmsja for preprocedural cardiovascular examinationPENNY MULLINSFacility:H1 Procedures DateProcedureProcedure DetailPerforming ClinicianStart: 54-22-4216KEJ,APTIMA HPV,AGE GDLNCorey Marianne DO Work Phone: Start: 41-16-1121MK OB BPP W NON-STRESSCorey Marianne DO Work Phone: Start: 82-14-3997AF OB BPP W NON-STRESSCorey Marianne DO Work Phone: Start: 81-12-7907HP OB BPP W NON-STRESSCorey Marianne DO Work Phone: Start: 98-95-0385FF OB GROWTHAmy Samantha PA Work Phone: Start: 02-72-4094ITM BUNCorey Marianne DO Work Phone: Start: 73-62-8272VEH CBC WITH AUTO DIFFCorey Marianne DO Work Phone: Start: 42-06-9576NES URIC ACIDCorey Marianne DO Work Phone: Start: 52-34-1958WNK ALTCorey Marianne DO Work Phone: Start: 37-78-3536UJW APTTCorey Marianne DO Work Phone: Start: 54-81-0088HVN ASTCorey Marianne DO Work Phone: Start: 19-64-8585OHOG FIBRINOGENCorey Marianne DO Work Phone: Start: 70-70-3820VSRWVY PROTHROMBIN TIME INR W/O COUM Zainab Marianne DO Work Phone: Start: 80-90-1370CVF CREATININECorey Marianne DO Work Phone: Start: 16-03-4566IE OB BPP W NON-STRESSCorey Marianne DO Work Phone: Start: 93-39-2150PR OB GROWTHCorey Marianne DO Work Phone: Start: 71-14-4296IM PREG TVCorey Marianne DO Work Phone: Plan of Treatment DateCare ActivityDetailAuthorStart: 02-01-2024 End: 29-38-8605Fvlhumc encounter procedureNOMS BCP OBComment on above:Arrived Cytology Cervical or vaginal smear or scraping studyPap Smear Pathology and Cytology Routine Well woman exam with routine gynecological exam Ordered: [facility] Work Phone: comment on above:Ordered: 02/01/2024 Payers DatePayer CategoryPayerPolicy [id number] [id number] 2023Medicaid [id number] Private Health InsuranceGENERIC COMMERCIAL [id number] 2.0.1.279821.3.57[id number] 2.0.1.152489.3.57[id number] 2.0.1.930341.3.57[id number] 2.840.1.980338.3.57[id number] 2.16.840.1.063288.3.57[id number] 2.16.840.1.595729.3.57[id number] 2..0.1.362712.3.57[id number] 2.16.840.1.447778.3.57[id number] 2..840.1.174694.3.57[id number] 2.16.840.1.652090.3.57[id number] 2..0.1.138507.3.579.2.531 Social History DateTypeDetailFacilityTobacco smoking status NHISUnknown if ever smokedSumma Health Akron Campus Work Phone: Start: 83-16-3520Mer Assigned At BirthUniversity Hospitals Conneaut Medical Centertart: 80-43-0631Gyueilh smoking status NHISTobacco smoking consumption unknownCEN[facility]AL [facility] HealthcareStart: 37-36-6911Odt Assigned At Not on [facility] HealthcareGender identityNot on [facility] HealthcareStart: 49-34-7574ExwPcmlhsUQFS HealthcareStart: 05-08-2023 End: 48-49-8645Wdgmvpye to SARS-CoV-2 (event)Not [facility] Healthcare History of Present illness Narrative 02-01-2024 Note Date & ShcjNdekQecbufre91-29-0583 History of Present illness Narrative* Keely Yost, CAMPAIGN FUNDRAISER - 02/01/2024 2:00 PM EDT Reason for Appointment: Patient ID: Alison Marquis is a 23 y.o. female who presents for Well Women Visit Patient presents today for Annual Exam. MEDICATIONS Current Outpatient Medications Medication Instructions norethindrone-ethinyl estradiol (07/02) 1-20 MG-MCG tablet 1 tablet, Oral, Daily ALLERGIES No Known Allergies PROBLEMS Active Ambulatory Problems Diagnosis Date Noted No Active Ambulatory Problems Resolved Ambulatory Problems Diagnosis Date Noted No Resolved Ambulatory Problems Past Medical History: Diagnosis Date H/O miscarriage, currently PCOS (polycystic ovarian syndrome) HISTORY PAST MEDICAL HISTORY SOCIAL HISTORY Past Medical History: Diagnosis Date H/O miscarriage, currently PCOS (polycystic ovarian syndrome) Social History Tobacco Use Smoking status: Not on file Smokeless tobacco: Not on file Substance Use Topics Alcohol use: Not on file Drug use: Not on file FAMILY HISTORY Family History Problem Relation Name Age of Onset Hypertension Mother No Known Problems Father No Known Problems Sister Hypertension Brother Diabetes type I Brother SURGICAL HISTORY Past Surgical History: Procedure Laterality Date PELVIC LAPAROSCOPY diagnostic laparoscopy with right ovarian cystotomy REVIEW OF SYSTEMS Review of Systems: Review of Systems Constitutional: Negative. HENT: Negative. Eyes: Negative. Respiratory: Negative. Cardiovascular: Negative. Gastrointestinal: Negative. Genitourinary: Negative. Musculoskeletal: Negative. Skin: Negative. Neurological: Negative. All other systems reviewed and are negative. Hematological: Negative. Endocrine: Negative. Allergic/Immunologic: Negative. OBJECTIVE Objective: Physical Exam Constitutional: Appearance: Normal appearance. She is well-developed. Genitourinary: Vulva normal. Breasts: Breasts are soft. Right: Normal. Left: Normal. Cardiovascular: Rate and Rhythm: Normal rate and regular rhythm. Pulmonary: Effort: Pulmonary effort is normal. Breath sounds: Normal breath sounds. Abdominal: General: Bowel sounds are normal. There is no distension. Palpations: Abdomen is soft. Tenderness: There is no abdominal tenderness. There is no guarding or rebound. Musculoskeletal: General: No swelling. Normal range of motion. Right lower leg: No edema. Left lower leg: No edema. Neurological: Mental Status: She is alert and oriented to person, place, and time. Skin: General: Skin is warm and dry. Psychiatric: Mood and Affect: Mood normal. Behavior: Behavior normal. Vitals and nursing note reviewed. Exam conducted with a information technology auditor present. Vitals: Estimated body mass index is 39.56 kg/m as calculated from the following: Height as of 10/18/22: 5' 6 . Weight as of this encounter: 245 lb 1.9 oz. BP: 114/72 No LMP recorded. ASSESSMENT & PLAN ICD-10-CM 1. Well woman exam with routine gynecological exam Z01.419 Pap Smear Annual Exam: Patient presents today for an annual exam. Patient states she is doing well and has complaints of irregular bleeding on - rx for apri faxed to pharmacy. Pap was obtained without difficulty. No orders of the defined types were placed in this encounter. Follow Up: Patient is to return in one year for annual unless needed otherwise. Documented by Keely Yost LPN on behalf of: Zainab Lopes DO [facility] History of Present illness Narrative 07-21-2023 Note Date & [id number] History of Present illness Narrative* ELDER Faye - 07/21/2023 1:30 PM EST Reason for Appointment: Patient ID: Alison Marquis [...] by ELDER Faye on behalf of: ELDER aFye [facility]2022 Note Date & [id number] NoteOPERATIVE NOTE OPERATION DATE: 07/23/2022 PROCEDURE: Diagnostic laparoscopy with right ovarian cystotomy using monopolar scissors with chromopertubation. PREOPERATIVE DIAGNOSIS: Pelvic pain, right ovarian cyst, dysmenorrhea. POSTOPERATIVE DIAGNOSIS: Pelvic pain, right ovarian cyst, dysmenorrhea, including posterior endometriosis posterior cul-de-sac. ANESTHESIA: General. SURGEON: Zainab Lopes D.O. TEAM CDL DRIVER: MIKEY Garcia URINE OUTPUT: Yellow and clear. [...] was taken to Recovery Room in stable condition.[facility] Clinical Note 07-21-2022 Note Date & NtyjIffqGmfpdnja88-30-5945 NoteEXAM: XR CHEST 2 V HISTORY: Electronic cigarette [...] Electronically authenticated by: AGNES ARANDA Date: 2022-07-21 14:22[facility] Evaluation note Note Date & TypeNoteFacilityEvaluation noteNo assessment information available [facility] Work Phone: Evaluation note Note Date & TypeNoteFacilityEvaluation note* Diagnosis 6 weeks follow-up documented in this encounter [facility] Evaluation note Note Date & TypeNoteFacilityEvaluation note* Diagnosis Well woman exam with routine gynecological exam Routine gynecological examination Abnormal uterine bleeding (AUB) documented in this encounter [facility] Summary Purpose Family History No Family History Records FoundNo Family History Records FoundNo Family History Records Found Advance Directives No Advanced Directives Records FoundNo Advanced Directives Records FoundNo Advanced Directives Records Found Additional Source Comments INFORMATION SOURCE (unrecogn ized section and content) DATE CREATED AUTHOR 10/21/2022 [facility] DATE CREATED AUTHOR AUTHOR'S ORGANIZ ATION 05/14/2023 [facility] DATE CREATED AUTHOR AUTHOR'S ORGANIZ ATION 02/03/2024 [facility] EPIC Care Teams (unrecognized sec tion and content) Team Status: Inactive Member Role Status Dates Zainab Lopes Attending Provider Active Team MemberRelationshipSpecialtyStart DateEnd Date Natalie Ray MD [address] [place] [address] PCP - GeneralPediatrics11/04/22Team MemberRelationshipSpecialtyStart DateEnd Date Natalie Ray MD [address] [place] [address] PCP - GeneralPediatrics11/04/22Team MemberRelationshipSpecialtyStart DateEnd Date Natalie Ray MD [address] [place] [address] PCP - GeneralPediatrics11/04/22Team MemberRelationshipSpecialtyStart DateEnd Date Natalie Ray MD [address] [place] [address] PCP - GeneralPediatrics11/04/22Team MemberRelationshipSpecialtyStart DateEnd Date Natalie Ray MD [address] [place] [address] PCP - GeneralPediatrics11/04/22 Goals (unrecognized section and content) Goals may be documented in a n alternate section Reason for Visit (unrecogniz ed section and content) ReasonCommentsPostpartum CareReasonCommentsWell Women Visit FOR RECORDS PERTAINING TO PATIENTS WHO ARE [...] BE BASED ON THE PRIMARY CLINICAL RECORDS. [facility]. provides no warranty or guarantee of the accuracy or completeness of information in this document.
--- OUTSIDE RECORDS SUMMARY | 2025-05-17 17:28 | XMS_ITS | Clinical Summary ---
Author Organization [facility] Address [id number] [address] [place] [address] Care Team Providers Care Pig Machine Operator Helper Name Role Phone Natalie Ray MD Primary Care Provider [phone] Allergies No known active allergies Medications MedicationSigDispense QuantityRefillsLast FilledStart DateEnd DateStatus vitamins no.2 ( VITAMIN NO.2 ORAL) Take by mouth.Active Active Problems No known active problems Immunizations ImmunizationAdministration DatesNext DueRho (D) Immune Niprbvfa59/19/2022 Family History Medical HistoryRelationNameCommentsDiabetesMaternal GrandfatherHypertension MotherRelationNameStatusCommentsMaternal GrandfatherMother Social History Tobacco UseTypesPacks/DayYears UsedDateSmoking Tobacco: FormerCigarettes Smokeless Tobacco: NeverAlcohol UseStandard Drinks/WeekCommentsNot Currently0 (1 standard drink = 0.6 oz pure alcohol)Overall Financial Resource Strain (CARDIA) AnswerDate RecordedHow hard is it for you to pay for the very basics like food, housing, medical care, and heating?Not hard at all08/10/2021HQ-2AnswerDate RecordedTotal Oyuus2932ChildcareAnswerDate RecordedDo problems getting child protection specialist make it difficult for you to work or study?No08/10/2021Employment AnswerDate NjcbtvbsOapqsxfuefUrhbchp93/12/2019Purpose - LifeAnswerDate Recorded Purpose and direction in wijtQtbwgxi13/22/2021CommentsNoSex and Gender InformationValueDate RecordedSex Assigned at PlifgSpmawv63/28/2022 7:28 PM EST Legal SgnEgnqwu55/06/2015 11:58 AM EDTGender CcohtidsQqkyhe68/28/2022 7:28 PM ESTSexual JzlbsyupvzyTlyktqry41/28/2022 7:28 PM EST Last Filed Vital Signs Vital SignReadingTime TakenCommentsBlood Erstnkke356/7908/29/2021 12:29 AM EDT Rqxeh64565/19/2022 12:29 AM YSCGdnjdbftdxd80.6 ??C (97.8 ??F)08/29/2021 12:29 AM EDTRespiratory Adup102008/29/2021 12:29 AM EDTOxygen Ycwitrdjvh61%08/29/2021 12:29 AM EDTInhaled Oxygen Concentration--Pzxnyv365.3 kg (230 lb)08/28/2021 9:11 PM GVSGeqeix590.6 cm (5' 6 )08/28/2021 9:11 PM EDTBody Mass Index37.1203 9:11 PM EDT Plan of Treatment Health MaintenanceDue DateLast DoneCommentsChlamydia Gsbcnaktd92/24/2002 Depression Motkszeqm44/24/2014Tobacco Bxyvkdxbe36/24/2014dult BMI Screening 2019Pap Smear3DTaP,Tdap and Td Vaccines (7 - Td or Tdap) /07/2013, 12/08/2005, 05/01/2003, Additional history existsInfluenza Lzxuiky9402/11/2025 Medical Devices Not on file Insurance Care Teams Team MemberRelationshipSpecialty[place] [address] [place] [id number] [facility] Qsodzbgd18/9/21
--- OUTSIDE RECORDS SUMMARY | 2025-05-17 17:28 | XMS_ITS | Clinical Summary ---
Author Organization [facility] Address [address] [place] [address] Care Team Providers Care Web Applications Architect Name Role Phone Natalie Ray MD Primary Care Provider [phone] Allergies No known active allergies Medications MedicationSigDispense QuantityRefillsLast FilledStart DateEnd DateStatus desogestrel-ethinyl estradiol (Apri) 0.15-30 MG-MCG tablet Indications:Abnormal uterine bleeding (AUB)Take 1 tablet by mouth Daily 28 tablet ctive Family History Medical HistoryRelationNameCommentsDiabetes type IBrotherHypertensionBrotherNo Known ProblemsFatherHypertensionMotherNo Known ProblemsSisterRelationNameStatus CommentsBrotherAliveFatherAliveMotherAliveSisterAlive Social History Tobacco UseTypesPacks/DayYears UsedDateSmoking Tobacco: Never Assessed Tobacco Cessation:Counseling Given: Not Answered CommentsUnknownSex and Gender InformationValueDate RecordedSex Assigned at BirthNot on fileLegal EttJgujoj98/15/2023 11:51 PM EDTGender IdentityNot on fileSexual OrientationNot on file Last Filed Vital Signs Vital SignReadingTime TakenCommentsBlood Ngwwoabg450/72002/01/2024 2:07 PM EDT Pulse--Temperature--Respiratory Rate--Oxygen Saturation--Inhaled Oxygen Concentration--Itwemx615 kg (245 lb 1.9 oz)02/01/2024 2:07 PM MTLVqorqw733.6 cm (5' 6 )10/18/2022 12:00 PM EDTBody Mass Index39.56010/18/2022 12:00 PM EDT Plan of Treatment Not on file Insurance Care Teams Team MemberRelationshipSpecialtyStart DateEnd Date Natalie Ray MD [address], [place] [id number] PCP - GeneralPediatrics11/04/22
[2025-05-17] MEDS: AMOXICILLIN 500 MG CAPSULE PO (17:48)
[2025-05-17 17:52] VITALS: BP 142/89; PULSE 96; O2SAT 100
== END 2025-05-17 17:55 | disposition home or self-care (01) ==
PROVIDERS: Emergency Provider Emergency Medicine
DX: J02.0 Streptococcal pharyngitis (principal)
CPT/HCPCS: 87070; 87186; 87880; 99283